=== PATIENT | male | born 1985 | race Two or more races ===

== ENCOUNTER 2016-04-02 18:47 | Inpatient (IN) | payer MEDICAID ==
[2016-04-02 19:49] LABS: % BASOPHILS 0.7 % (0.0-2.0); % LYMPHOCYTES 28.7 % (20.0-50.0); % MONOCYTES 7.7 % (2.0-10.0); % NEUTROPHILS 60.9 % (40.0-80.0); HEMATOCRIT 53.6 % (39.0-49.0); HEMOGLOBIN 18.3 gm/dL (13.2-17.3); MEAN CELL VOLUME 90.3 fl (80-99); MEAN CORPUSCULAR HEMOGLOBIN 30.8 pg (26.0-30.0); MEAN CORPUSCULAR HGB CONC 34.1 pg (28.0-36.0); MEAN PLATELET VOLUME 10.8 fl; NEUTROPHILE ABSOLUTE 4.5 Th/cmm (1.8-8.0); PLATELET COUNT 189 Th/cmm (150-400); RED BLOOD COUNT 5.94 Mil/cmm (4.30-5.70); RED CELL DISTRIBUTION WIDTH 12.4 % (11.5-20.0); WHITE BLOOD COUNT 7.6 Th/cmm (4.8-10.8)
[2016-04-02 20:00] LABS: ALB/GLOB RATIO 1.3 (1.0-1.8); ALKALINE PHOSPHATASE 47 U/L (34-104); ANION GAP 7.2 (7.0-16.0); BILIRUBIN,TOTAL 0.5 mg/dL (0.3-1.0); BUN - UREA NITROGEN 18 mg/dL (7-25); CALCIUM SERUM 9.5 mg/dL (8.6-10.3); CARBON DIOXIDE 31.7 mEq/L (21.0-31.0); CHLORIDE 103 mEq/L (98-107); CREATININE - SERUM 0.6 mg/dL (0.7-1.3); GLUCOSE 97 mg/dL (70-105); POTASSIUM SERUM 3.9 mEq/L (3.5-5.1); SGOT 15 U/L (13-39); SGPT/ALT 31 U/L (7-52); SODIUM SERUM 138 mEq/L (136-145)
--- NOTE | 2016-04-02 20:26 | ED Physician Chart ---
Chief Complaint/HPI - Patient Information Date Seen:: 04/02/16 Time Seen:: 19:00 Chief Complaint:: congestion History of Present Illness:: congestion today without other specific acute changes Allergies:: Allergies Allergy/AdvReac Type Severity Reaction Status Date / Time No Known Allergies Allergy Verified 04/02/16 18:54 Vitals:: Vital Signs - 8 hr 04/02/16 04/02/16 18:55 19:44 Temp 98.4 F 98.5 F HR 80 75 RR 17 20 BP 112/77 108/78 O2 Sat % 94 95 Historian:: EMS, Medical Records Review:: Nurse's Note Reviewed, Transfer documents Reviewed, Patient unable to respond Review of Systems - Review of Systems General/Constitutional: No fever, No chills, No weight loss, No diaphoresis, No edema, No loss of appetite Skin: No skin lesions, No rash, No bruising Pulmonary: No SOB, No cough, No sputum, No wheezing GI: No nausea, No vomiting, No diarrhea, No melena, No hematochezia, No hematemesis Psychiatric: Prior psych history Hematopoietic: No bruising Allergic/Immuno: No urticaria, No angioedema Neurological: No syncope, No focal symptoms Past Medical History - Past Medical History Past Medical History: DM, PUD/GERD, Seizures, Other (paraplegia) Social History: Non Smoker, No Alcohol, No Drug Use, Care Facility Surgical History: PEG/GTube Psychiatricy History: None Medication: Reviewed Family Medical History - Family Member Mother History Unknown: Yes Physical Exam - Physical Examination General/Constitutional: Alert, Non-toxic appearing Head: Atraumatic Eyes: PERRL, EOMI Skin: No rash, No skin lesions, Well hydrated ENMT: Nasal exam nl, Lips, teeth, gums nl (poor dental hygiene), Oropharynx nl Neck: Nontender, No nuchal rigidity, No bruit, No mass, No stridor Respiratory: Nl effort/Exclusion (rales bilat, rhonchi greater over right hilar area) Cardio Vascular: RRR, No murmur, gallop, rubs, NL S1 S2, Carotid/Femoral/Distal pulses equal bilaterally GI: No tenderness/rebounding/guarding, No organomegaly, No hernia, Normal BS's, Nondistended (G tube site clean) : No discharge Other Extremities comments:: extremities with paralytic stigmata, some contractures. excellent skin appearance, no edema, symmetrical, warm to touch. Neuro/Psych: Alert/oriented (pt is alert, nonverbal) Other Neuro/Psych comments:: pt nonverbal paraplegia/partial quadriplegia. responds to name, smiles, seems to be able to focus on faces, turns toward voice. Labs/Radiology/EKG Results - Lab Results Results: Laboratory Tests 04/02/16 04/02/16 04/02/16 19:20 19:20 19:20 WBC 7.6 RBC 5.94 H Hgb 18.3 H Hct 53.6 H MCV 90.3 MCH 30.8 H MCHC Differential 34.1 RDW 12.4 Plt Count 189 MPV 10.8 Neutrophils % 60.9 Lymphocytes % 28.7 Monocytes % 7.7 Eosinophils % 2.0 Basophils % 0.7 Sodium 138 Potassium 3.9 Chloride 103 Carbon Dioxide 31.7 H Anion Gap 7.2 BUN 18 Creatinine 0.6 L Est GFR ( Amer) > 60.0 Est GFR (Non-Af Amer) > 60.0 BUN/Creatinine Ratio 30.0 Glucose 97 Whole Bld Lactic Acid 1.95 Calcium 9.5 Total Bilirubin 0.5 AST 15 ALT 31 Alkaline Phosphatase 47 Total Protein 7.4 Albumin 4.2 Globulin 3.2 Albumin/Globulin Ratio 1.3 - Radiology Results Results: ED read, no prior exam available. diffuse increased bronchial markings, obscured right heart border but no distinct infiltrate or consolidation. - EKG Interpretations EKG Time:: 19:25 (NSR, minimal ST segment elevation diffusely but not malignant in appearance) ED Septic Shock - . Is Septic Shock (SBP<90, OR Lactate>4 mmol\L) present?: No - <6hrs of presentation: Vital Signs: Vital Signs - 8 hr 04/02/16 04/02/16 18:55 19:44 Temp 98.4 F 98.5 F HR 80 75 RR 17 20 BP 112/77 108/78 O2 Sat % 94 95 Reassessment (Disposition) - Reassessment Reassessment Condition:: Unchanged - Patient Disposition Discharge/Transfer:: Acute Care w/in this hosp (discussed with dr sterling who subsequently requests observation for this pt overnight and will arrange additional care plan) ED Discharge Plan - Patient Disposition Admit/Discharge/Transfer: Acute Care w/in this hosp Condition at Disposition: Stable
[2016-04-02] MEDS ORDERED: Magnesium Hydroxide (MOM) 30 mL UDC GT PRN (21:32)
[2016-04-02] MEDS ORDERED: guaiFENesin 200 MG/10 ML UDC PO PRN (21:35)
[2016-04-02] MEDS ORDERED: Maalox 30 mL Cup PO PRN (21:35)
[2016-04-02] MEDS ORDERED: Levofloxacin 500mg/100mL 500 MG/100 ML BAG IV ONE (21:45)
[2016-04-03] MEDS ORDERED: Albuterol Nebulizer 2.5mg/3mL HHN ONE (06:37)
[2016-04-03] MEDS ORDERED: Ipratropium Neb 0.5 mg/2.5 mL UD HHN ONE (06:38)
[2016-04-03] MEDS: Docusate Sodium 100 mg/10 mL UD GT SCH ×2 (08:44→16:31)
[2016-04-03] MEDS: Pantoprazole 40 mg/Packet GT SCH (08:45)
[2016-04-03] MEDS ORDERED: Albuterol Nebulizer 2.5mg/3mL IH SCH (09:00)
[2016-04-03] MEDS: D5-0.45NS 1,000 ML IV SCH ×2 (09:00→22:40)
[2016-04-03] MEDS ORDERED: Ipratropium Neb 0.5 mg/2.5 mL UD IH SCH (09:00)
[2016-04-03] MEDS: Ipratropium Neb 0.5 mg/2.5 mL UD HHN SCH ×3 (10:40→19:46)
[2016-04-03] MEDS: Albuterol Nebulizer 2.5mg/3mL HHN SCH ×3 (10:40→19:46)
--- NOTE | 2016-04-03 11:18 | Diagnostic Imaging Report ---
Portable chest x-ray HISTORY: Shortness of breath There is a poor inspiration. Faint linear density seen in the right perihilar region that may be associated with scarring or subsegmental atelectasis. The heart size is normal. No hilar or mediastinal abnormalities. IMPRESSION: 1. Faint right perihilar linear density. The finding may be associated with scarring or subsegmental atelectasis. Clinical relation needed.
[2016-04-03] MEDS ORDERED: Dextrose 50% 50 mL Abboject IVP PRN (11:31)
[2016-04-03] MEDS: INSULIN ASPART SLIDING SCALE 100 UNITS/ML UNIT SUBQ SCH ×3 (12:34→20:56)
[2016-04-03 17:44] LABS: URINE BILIRUBIN NEGATIVE (NEGATIVE); URINE BLOOD NEGATIVE (NEGATIVE); URINE COLOR YELLOW; URINE GLUCOSE (UA) NEGATIVE (NEGATIVE); URINE KETONE TRACE mg/dL (NEGATIVE); URINE PROTEIN TRACE mg/dL (NEGATIVE)
[2016-04-03 17:45] LABS: URINE BACTERIA FEW /hpf (NONE SEEN); URINE EPITHELIAL CELLS FEW /lpf (FEW); URINE RBC NONE SEEN /hpf (0-5); URINE WBC 0-2 /hpf (0-5)
[2016-04-03 17:46] LABS: URINE AMORPHOUS SEDIMENT MODERATE URATES (NONE SEEN)
[2016-04-03] MEDS: Levofloxacin 500mg/100mL Premix Bag IV SCH (20:54)
[2016-04-04 07:22] LABS: % BASOPHILS 0.3 % (0.0-2.0); % EOSINOPHILS 2.2 % (0.0-5.0); % LYMPHOCYTES 26.8 % (20.0-50.0); % MONOCYTES 7.8 % (2.0-10.0); % NEUTROPHILS 62.9 % (40.0-80.0); HEMATOCRIT 48.8 % (39.0-49.0); HEMOGLOBIN 16.8 gm/dL (13.2-17.3); MEAN CELL VOLUME 90.4 fl (80-99); MEAN CORPUSCULAR HEMOGLOBIN 31.2 pg (26.0-30.0); MEAN CORPUSCULAR HGB CONC 34.5 pg (28.0-36.0); MEAN PLATELET VOLUME 11.1 fl; NEUTROPHILE ABSOLUTE 4.4 Th/cmm (1.8-8.0); PLATELET COUNT 164 Th/cmm (150-400); RED CELL DISTRIBUTION WIDTH 12.6 % (11.5-20.0); WHITE BLOOD COUNT 6.9 Th/cmm (4.8-10.8)
[2016-04-04 07:38] LABS: ANION GAP 10.2 (7.0-16.0); BUN - UREA NITROGEN 15 mg/dL (7-25); CALCIUM SERUM 8.9 mg/dL (8.6-10.3); CARBON DIOXIDE 27.6 mEq/L (21.0-31.0); CHLORIDE 105 mEq/L (98-107); CREATININE - SERUM 0.5 mg/dL (0.7-1.3); GLUCOSE 98 mg/dL (70-105); POTASSIUM SERUM 3.8 mEq/L (3.5-5.1); SODIUM SERUM 139 mEq/L (136-145)
[2016-04-04] MEDS: INSULIN ASPART SLIDING SCALE 100 UNITS/ML UNIT SUBQ SCH ×4 (07:43→21:12)
[2016-04-04 08:13] LABS: TSH 1.22 uIU/ml (0.34-5.60)
[2016-04-04] MEDS: Albuterol Nebulizer 2.5mg/3mL HHN SCH ×5 (08:24→19:10)
[2016-04-04] MEDS: Ipratropium Neb 0.5 mg/2.5 mL UD HHN SCH ×3 (08:25→19:10)
[2016-04-04] MEDS: Docusate Sodium 100 mg/10 mL UD GT SCH ×2 (08:36→16:45)
[2016-04-04] MEDS: Pantoprazole 40 mg/Packet GT SCH (08:36)
--- NOTE | 2016-04-04 09:26 | History & Physical ---
CHIEF COMPLAINT: ____ congestion, dehydrated. HISTORY OF PRESENT ILLNESS: This is a 31-year-old male with history of mental retardation, cerebral palsy, seizure, dysphagia with G-tube, diabetes, was admitted from nursing facility secondary to above complaints. The patient is awake ____ unable to provide a meaningful history on review of system. PAST MEDICAL HISTORY: As mentioned in history of present illness. PAST SURGICAL HISTORY: Status post G-tube. ALLERGIES: No known drug allergies. MEDICATIONS: Tylenol, insulin sliding scale, Keppra, magnesium, pantoprazole. FAMILY HISTORY: Noncontributory. SOCIAL HISTORY: The patient lives in [place] [facility]. The patient requiring 24-hour total care. REVIEW OF SYSTEMS: This is limited secondary to the patient's current mental state. We will try to obtain more detailed review of systems at a later date by talking to family members. ____ number [phone]. We will also try to get information from the mother who also ____ [phone] as well as from nursing staff at [facility], number [phone] Allen who follows the patient. PHYSICAL EXAMINATION: VITAL SINGS: Blood pressure 110/73, respirations 17, pulse 118, and temperature 98.8. GENERAL: Young male appears chronically ill. NECK: Supple. LUNGS: Equal breath sounds, few rhonchi. HEART: Sinus tachycardia without appreciable murmurs. ABDOMEN: Soft. Nontender. Positive G-tube. EXTREMITIES: Positive contractures, atrophy. NEUROLOGIC: Limited. LABORATORY DATA: WBC 7.6, hemoglobin 18, platelets ____. Sodium 130, potassium ____, BUN 18, creatinine 0.6, blood sugar 140. Chest x-ray is pending. ASSESSMENT: Supraventricular tachycardia, acute asthma exacerbation, acute bronchitis, diabetes, gastroesophageal reflux disease, dysphagia with G-tube, mental retardation, cerebral palsy, seizure, erythrocytosis. PLAN: We will continue the patient on IV hydration, ____ regular insulin regimen. Continue anticoagulant medications. We will also ____. We will continue to monitor the patient closely. JOB# [id number]
--- NOTE | 2016-04-04 11:16 | Diagnostic Imaging Report ---
Portable chest x-ray HISTORY: Pneumonia Compared with prior exam of 04/02/2016, there is a persistent linear density within the right perihilar region consistent with scarring or subsegmental atelectasis. No other changes. IMPRESSION: 1. Persistent linear density within the right perihilar region. Findings may be associated with scarring or subsegmental atelectasis.
--- NOTE | 2016-04-04 15:27 | Internal Medicine Prog Note ---
Internal Medicine Subjective - Subjective Patient seen and examined:: with staff, chart reviewed Patient is:: asleep, non-verbal, non-interactive Patient Complaints of:: congestion Per staff patient is:: no adverse event, no episodes of fall, confused Internal Medicine Objective - Results Result Diagrams: 04/04/16 06:48 04/04/16 06:48 Recent Labs: Laboratory Last Values WBC 6.9 Th/cmm (4.8-10.8) 04/04/16 06:48 RBC 5.40 Mil/cmm (4.30-5.70) 04/04/16 06:48 Hgb 16.8 gm/dL (13.2-17.3) 04/04/16 06:48 Hct 48.8 % (39.0-49.0) 04/04/16 06:48 MCV 90.4 fl (80-99) 04/04/16 06:48 MCH 31.2 pg (26.0-30.0) H 04/04/16 06:48 MCHC Differential 34.5 pg (28.0-36.0) 04/04/16 06:48 RDW 12.6 % (11.5-20.0) 04/04/16 06:48 Plt Count 164 Th/cmm (150-400) 04/04/16 06:48 MPV 11.1 fl 04/04/16 06:48 Neutrophils % 62.9 % (40.0-80.0) 04/04/16 06:48 Lymphocytes % 26.8 % (20.0-50.0) 04/04/16 06:48 Monocytes % 7.8 % (2.0-10.0) 04/04/16 06:48 Eosinophils % 2.2 % (0.0-5.0) 04/04/16 06:48 Basophils % 0.3 % (0.0-2.0) 04/04/16 06:48 Sodium 139 mEq/L (136-145) 04/04/16 06:48 Potassium 3.8 mEq/L (3.5-5.1) 04/04/16 06:48 Chloride 105 mEq/L (98-107) 04/04/16 06:48 Carbon Dioxide 27.6 mEq/L (21.0-31.0) 04/04/16 06:48 Anion Gap 10.2 (7.0-16.0) 04/04/16 06:48 BUN 15 mg/dL (7-25) 04/04/16 06:48 Creatinine 0.5 mg/dL (0.7-1.3) L 04/04/16 06:48 Est GFR ( Amer) > 60.0 ml/min (>90) 04/04/16 06:48 Est GFR (Non-Af Amer) > 60.0 ml/min 04/04/16 06:48 BUN/Creatinine Ratio 30.0 04/04/16 06:48 Glucose 98 mg/dL (70-105) 04/04/16 06:48 POC Glucose 98 MG/DL (70 - 105) 04/04/16 11:12 Whole Bld Lactic Acid 1.95 mmol/L (0.60-2.00) 04/02/16 19:20 Calcium 8.9 mg/dL (8.6-10.3) 04/04/16 06:48 Total Bilirubin 0.5 mg/dL (0.3-1.0) 04/02/16 19:20 AST 15 U/L (13-39) 04/02/16 19:20 ALT 31 U/L (7-52) 04/02/16 19:20 Alkaline Phosphatase 47 U/L (34-104) 04/02/16 19:20 Ammonia 47 umol/L (16-53) 04/04/16 06:48 Total Protein 7.4 gm/dL (6.0-8.3) 04/02/16 19:20 Albumin 4.2 gm/dL (4.2-5.5) 04/02/16 19:20 Globulin 3.2 gm/dL 04/02/16 19:20 Albumin/Globulin Ratio 1.3 (1.0-1.8) 04/02/16 19:20 TSH 1.22 uIU/ml (0.34-5.60) 04/04/16 06:48 Urine Source CATH 04/03/16 15:20 Urine Color YELLOW 04/03/16 15:20 Urine Clarity SLIGHT HAZY (CLEAR) 04/03/16 15:20 Urine pH 7.0 04/03/16 15:20 Ur Specific [place] 1.020 (1.005-1.030) 04/03/16 15:20 Urine Protein TRACE mg/dL (NEGATIVE) 04/03/16 15:20 Urine Glucose (UA) NEGATIVE mg/dL (NEGATIVE) 04/03/16 15:20 Urine Ketones TRACE mg/dL (NEGATIVE) 04/03/16 15:20 Urine Blood NEGATIVE (NEGATIVE) 04/03/16 15:20 Urine Nitrate NEGATIVE (NEGATIVE) 04/03/16 15:20 Urine Bilirubin NEGATIVE (NEGATIVE) 04/03/16 15:20 Urine Urobilinogen 1.0 E.U./dL (0.2 - 1.0) 04/03/16 15:20 Ur Leukocyte Esterase NEGATIVE (NEGATIVE) 04/03/16 15:20 Urine RBC NONE SEEN /hpf (0-5) 04/03/16 15:20 Urine WBC 0-2 /hpf (0-5) 04/03/16 15:20 Ur Epithelial Cells FEW /lpf (FEW) 04/03/16 15:20 Amorphous Sediment MODERATE URATES (NONE SEEN) 04/03/16 15:20 Urine Bacteria FEW /hpf (NONE SEEN) 04/03/16 15:20 Urine Mucus FEW /lpf (FEW) 04/03/16 15:20 - Physical Exam Vitals and I&O: Vital Signs Temp 97.5 F 04/04/16 12:00 Pulse 79 04/04/16 12:00 Resp 18 04/04/16 12:00 BP 101/69 04/04/16 12:00 Pulse Ox 93 04/04/16 12:00 Intake & Output 04/03/16 04/04/16 04/04/16 18:59 06:59 18:59 Intake Total 950 1400 Balance 950 1400 Intake: Intake, IV Amount 1000 D5-0.45NS 1,000 ml @ 80 1000 mls/hr IV .[id number] [facility] Rx #:[id number] Tube Feeding 750 200 Other 200 200 Other: # Voids 3 2 # Bowel Movements 0 1 Active Medications: Current Medications Acetaminophen (Tylenol) 650 mg PO Q4HR PRN PRN Reason: Pain or Fever >101 Stop: 06/01/16 21:34 Al Hydrox/Mg Hydrox/Simethicone (Maalox) 30 ml PO Q6HR PRN PRN Reason: GI DISTRESS Stop: 06/01/16 21:34 Albuterol Sulfate (Albuterol 2.5mg/3ml Neb Ud) 2.5 mg HHN QIDRT [facility] Stop: 06/02/16 10:59 Last Admin: 04/04/16 14:38 Dose: 2.5 mg Dextrose (D50w) 50 ml IVP PRN PRN PRN Reason: Blood Glucose less than 70 Stop: 06/02/16 11:30 Docusate Sodium (Colace) 150 mg GT BID [facility] Stop: 06/02/16 08:59 Last Admin: 04/04/16 08:36 Dose: 150 mg Guaifenesin (Robitussin) 200 mg PO Q4HR PRN PRN Reason: Cough or Congestion Stop: 06/01/16 21:34 Dextrose/Sodium Chloride (D5-0.45ns) 1,000 mls @ 80 mls/hr IV .[id number] [facility] Stop: 06/01/16 21:44 Last Admin: 04/03/16 22:40 Dose: 80 mls/hr Levofloxacin (Levaquin Pb) 500 mg in 100 mls @ 100 mls/hr IV Q24HR [facility] Stop: 06/02/16 20:59 Last Admin: 04/03/16 20:54 Dose: 100 mls/hr Insulin Aspart (Novolog Insulin Sliding Scale) 0 units SUBQ ACHS SHIRA PRN Reason: Protocol Stop: 06/02/16 11:29 Last Admin: 04/04/16 07:43 Dose: Not Given Ipratropium [place] (Atrovent Neb 0.5mg/2.5ml) 0.5 mg N QIDRT [facility] Stop: 06/02/16 10:59 Last Admin: 04/04/16 14:38 Dose: 0.5 mg Levetiracetam (Keppra) 500 mg PO BID [facility] Stop: 06/02/16 08:59 Last Admin: 04/04/16 08:36 Dose: 500 mg Lorazepam (Ativan) 1 mg IV Q4HR PRN; Protocol PRN Reason: Seizure Stop: 06/01/16 21:34 Magnesium Hydroxide (Milk Of Magnesia) 30 ml GT DAILY PRN PRN Reason: Constipation Stop: 06/01/16 21:31 Nitroglycerin (Nitrostat) 0.4 mg SL Q5MIN PRN PRN Reason: CHEST PAIN X3 Stop: 06/01/16 21:31 Ondansetron HCl (Zofran) 4 mg IV Q8H PRN PRN Reason: Nausea / Vomiting Stop: 06/01/16 21:34 Pantoprazole Sodium (Protonix) 40 mg GT DAILY SHIRA Stop: 06/02/16 08:59 Last Admin: 04/04/16 08:36 Dose: 40 mg Zolpidem Tartrate (Ambien) 10 mg PO HS PRN PRN Reason: Insomnia Stop: 06/01/16 21:34 General: demented HEENT: NC/AT Neck: Supple, No JVD Lungs: congested, rales Cardiovascular: RRR, Normal S1, Normal S2 Abdomen: soft non-tender, globular, +GT, positive bowel sound Extremities: excoriation, contracture Neurological: no change Internal Medicine Assmt/Plan - Assessment Assessment: svt acute asthma exac acute bronchitis gerd mr cp sz - Plan Plan: cont on iv abx cxr noted, questonable lesion will order ct chest dw rn and cm see orders Nutritional Asmnt/Malnutr-PDOC - Dietary Evaluation Malnutrition Findings (Please click <Entered> for more info): Nutritional Asmnt/Malnutrition Start: 04/03/16 18: 00 Text: Status: Complete Freq: Document 04/03/16 18:00 GSUN (Rec: 04/03/16 18:21 GSUN [email or web address]) Nutritional Asmnt/Malnutrition Patient General Information Nutritional Screening High Risk Screening Diagnosis Acute bronchitis. ER: congestion Pertinent Medical Hx/Surgical Hx Per ER: DM, GERD, seizures, paraplegia, g-tube Subjective Information 31yo M, non-verbal. Obtained new weight during visit. BMI 22. Spoke to RN, pt tolerating tube feeding well without residuals. Current Diet Order/ Nutrition Support Nutren 2.0 bolus QID Pertinent Medications D50w, D5, colace, novolog sliding scale, MOM, zofran, protonix Pertinent Labs Reviewed. Elevated glucose POC glucose 140H, 239H Nutritional Hx/Data Height 1.75 m Height (Calculated Centimeters) 175.3 Current Weight (lbs) 67.676 kg Weight (Calculated Kilograms) 67.7 Weight (Calculated Grams) 74001.0 [place] Body Weight 160 Weight Status Approriate GI Symptoms Difficult in: Chewing Swallowing Food Allergies No Cultural/Ethnic/Moravian Belief Unknown. Usual diet at home Nutren 2.0 bolus QID Skin Integrity/Comment: WNL. Estimated Nutritional Goals BEE in Kcals: Using Current wt Calories/Kcals/Kg 25-30kcal/kg Kcals Calculated 1693-2031kcal Protein: Using Current wt Protein g/k.8g/kg Protein Calculated 54g Fluid: ml 1693-2031ml (1ml/kcal) Nutritional Problem 1. Problem Problem Altered nutrition related laboratory values related to Etiology DM aeb Signs/Symptoms: elevated glucose, POC glucose 140H and 239H Intervention/Recommendation Comments 1. Recommend Nutren Pulmonary at 55ml/hr x 24hrs, providing 1980kcal, 90g protein. This regimen provides less carbohydrate than Diabetisource to better control DM and also provides a closer consistency to Nutren 2.0 (pt's current order). 2. If pt to be kept on Nutren 2.0, recommend Nutren 2.0 at 40ml/hr, providing 1920kcal, 81g protein. Continuous feeding to promote closed bag ready to hang system in the hospital. Expected Outcomes/Goals Expected Outcomes/Goals 1. Pt to meet 100% estimated nutritional needs on tube feeding with tolerance. Physician Parameters for PEM Serum Albumin (g/dl) 3.5 - 5.0 (Normal)
--- NOTE | 2016-04-04 21:55 | Admit Criteria Form ---
Admit Criteria Forms - Admit Criteria Diagnosis: ASTHMA Clinical Indications for Admission to Inpatient Care (Place 'X' for any and all applicable criteria): Admission is indicated for ANY ONE of the following (1)(2)(3)(4)(5): [ ]I. Absent or markedly diminished breath sounds (silent chest) [ ]II. Oxygen saturation < 92% [ ]III. PaCO2 = / > 42 mm Hg (5.6 kPa) [ ]IV. Peak expiratory flow rate < 40% of predicted or personal best after treatment. [ ]V. Peak expiratory flow rate < 33% of predicted or personal before after treatment [ ]. Change in mental status [ ]VII. Ventilatory support required [ ]VIII. PaO2 < 60 mm Hg (8.0 kPa) [ ]IX. Cyanosis [X]X. Cardiac dysrhythmia (e.g., bradycardia) [ ]XI. Hemodynamic instability [ ]XII. Radiographic evidence of complication requiring inpatient treatment (e.g., pneumonia, pneumothorax) [ ]XIII. Inpatient admission required rather than observation care (also use Asthma: Observation Care guideline as appropriate) because of ANY ONE of the following: [ ]a) Respiratory finding that is severe or persistent (eg, dyspnea, tachypnea, accessory muscle use) [ ]b) Airflow measurements less than 60% of predicted or personal best that persist (e.g., over 24 hours) or worsen despite treatments [ ]c) Supplemental oxygen or respiratory treatments for over 24 hours that are performable only in acute inpatient setting [ ]d) Other condition, treatment or monitoring requiring inpatient admission. Extended stay beyond goal length of stay may be needed for (26)(27)(28): [ ]a) Severe respiratory failure (23) (29) (30) [ ]b) Secondary causes and complications (25) [ ]c) Status asthmaticus [ ]d) Chronic obstructive asthma [ ]e) Older patients (29) [ ]f) Slow resolution [ ]g) Clinically significant exacerbation of comorbidities (eg, claudia. heart failure, atrial fibrillation) The original [employer] content created by [employer] has been revised. The portions of the content which have been revised are identified through the use of italic text or in bold, and [facility] has neither reviewed nor approved the modified material. All other unmodified content is copyright [facility] Please see references footnoted in the original [facility] edition 2016 Admit Criteria Met?: Yes
[2016-04-04] MEDS: Levofloxacin 500mg/100mL Premix Bag IV SCH (22:13)
[2016-04-05] MEDS: INSULIN ASPART SLIDING SCALE 100 UNITS/ML UNIT SUBQ SCH ×2 (06:42→11:30)
[2016-04-05] MEDS: Albuterol Nebulizer 2.5mg/3mL HHN SCH ×2 (07:28→11:09)
[2016-04-05] MEDS: Ipratropium Neb 0.5 mg/2.5 mL UD HHN SCH ×2 (07:29→11:09)
[2016-04-05] MEDS: Pantoprazole 40 mg/Packet GT SCH (08:59)
[2016-04-05] MEDS: Docusate Sodium 100 mg/10 mL UD GT SCH ×2 (08:59→16:57)
--- NOTE | 2016-04-05 10:05 | Diagnostic Imaging Report ---
CT Chest without IV contrast HISTORY: Mass, bronchitis COMPARISON: Chest x-ray performed on 04/04/2016. Technique: Axial images were obtained from the base of the neck to the upper abdomen without IV contrast. Reconstructions were made. Total DLP 3:15 CTD I 8.8 Findings: Evaluate evaluation of the mediastinum is limited due to lack of IV contrast. The exam is also limited due to motion. No evidence of mediastinal lymphadenopathy. Small calcification versus postsurgical changes of right hilar region are noted. Heart size is normal. No evidence of any aortic aneurysm. No pericardial effusion. Note that the lung apices are incompletely visualized on this exam. The lung montano demonstrate atelectatic hypotensor changes greatest in the lung bases. No focal consolidation, pleural effusions or evidence of a discrete mass. The upper abdomen demonstrates a percutaneous gastric feeding tube. Nonspecific small calcification is seen inferior to the right lobe of the liver. Spinal scoliosis is noted. IMPRESSION: Limited exam due to motion and incomplete visualization of the lung apices. Hypoventilatory and atelectatic changes of the lungs are seen with no focal consolidation or evidence of discrete mass lesion. Small calcified right hilar granulomas versus postsurgical changes of right hilar region. Please correlate with patient's clinical history and old exams. Suboptimal lung volumes. Percutaneous gastric feeding tube noted.
--- NOTE | 2016-04-05 14:18 | Internal Medicine Prog Note ---
Internal Medicine Subjective - Subjective Service Date: 04/05/16 Patient seen and examined:: with staff Patient is:: awake, non-verbal Patient Complaints of:: congestion Internal Medicine Objective - Results Result Diagrams: 04/04/16 06:48 04/04/16 06:48 Recent Labs: Laboratory Last Values WBC 6.9 Th/cmm (4.8-10.8) 04/04/16 06:48 RBC 5.40 Mil/cmm (4.30-5.70) 04/04/16 06:48 Hgb 16.8 gm/dL (13.2-17.3) 04/04/16 06:48 Hct 48.8 % (39.0-49.0) 04/04/16 06:48 MCV 90.4 fl (80-99) 04/04/16 06:48 MCH 31.2 pg (26.0-30.0) H 04/04/16 06:48 MCHC Differential 34.5 pg (28.0-36.0) 04/04/16 06:48 RDW 12.6 % (11.5-20.0) 04/04/16 06:48 Plt Count 164 Th/cmm (150-400) 04/04/16 06:48 MPV 11.1 fl 04/04/16 06:48 Neutrophils % 62.9 % (40.0-80.0) 04/04/16 06:48 Lymphocytes % 26.8 % (20.0-50.0) 04/04/16 06:48 Monocytes % 7.8 % (2.0-10.0) 04/04/16 06:48 Eosinophils % 2.2 % (0.0-5.0) 04/04/16 06:48 Basophils % 0.3 % (0.0-2.0) 04/04/16 06:48 Sodium 139 mEq/L (136-145) 04/04/16 06:48 Potassium 3.8 mEq/L (3.5-5.1) 04/04/16 06:48 Chloride 105 mEq/L (98-107) 04/04/16 06:48 Carbon Dioxide 27.6 mEq/L (21.0-31.0) 04/04/16 06:48 Anion Gap 10.2 (7.0-16.0) 04/04/16 06:48 BUN 15 mg/dL (7-25) 04/04/16 06:48 Creatinine 0.5 mg/dL (0.7-1.3) L 04/04/16 06:48 Est GFR ( Amer) > 60.0 ml/min (>90) 04/04/16 06:48 Est GFR (Non-Af Amer) > 60.0 ml/min 04/04/16 06:48 BUN/Creatinine Ratio 30.0 04/04/16 06:48 Glucose 98 mg/dL (70-105) 04/04/16 06:48 POC Glucose 98 MG/DL (70 - 105) 04/05/16 11:29 Whole Bld Lactic Acid 1.95 mmol/L (0.60-2.00) 04/02/16 19:20 Calcium 8.9 mg/dL (8.6-10.3) 04/04/16 06:48 Total Bilirubin 0.5 mg/dL (0.3-1.0) 04/02/16 19:20 AST 15 U/L (13-39) 04/02/16 19:20 ALT 31 U/L (7-52) 04/02/16 19:20 Alkaline Phosphatase 47 U/L (34-104) 04/02/16 19:20 Ammonia 47 umol/L (16-53) 04/04/16 06:48 Total Protein 7.4 gm/dL (6.0-8.3) 04/02/16 19:20 Albumin 4.2 gm/dL (4.2-5.5) 04/02/16 19:20 Globulin 3.2 gm/dL 04/02/16 19:20 Albumin/Globulin Ratio 1.3 (1.0-1.8) 04/02/16 19:20 TSH 1.22 uIU/ml (0.34-5.60) 04/04/16 06:48 Urine Source CATH 04/03/16 15:20 Urine Color YELLOW 04/03/16 15:20 Urine Clarity SLIGHT HAZY (CLEAR) 04/03/16 15:20 Urine pH 7.0 04/03/16 15:20 Ur Specific [place] 1.020 (1.005-1.030) 04/03/16 15:20 Urine Protein TRACE mg/dL (NEGATIVE) 04/03/16 15:20 Urine Glucose (UA) NEGATIVE mg/dL (NEGATIVE) 04/03/16 15:20 Urine Ketones TRACE mg/dL (NEGATIVE) 04/03/16 15:20 Urine Blood NEGATIVE (NEGATIVE) 04/03/16 15:20 Urine Nitrate NEGATIVE (NEGATIVE) 04/03/16 15:20 Urine Bilirubin NEGATIVE (NEGATIVE) 04/03/16 15:20 Urine Urobilinogen 1.0 E.U./dL (0.2 - 1.0) 04/03/16 15:20 Ur Leukocyte Esterase NEGATIVE (NEGATIVE) 04/03/16 15:20 Urine RBC NONE SEEN /hpf (0-5) 04/03/16 15:20 Urine WBC 0-2 /hpf (0-5) 04/03/16 15:20 Ur Epithelial Cells FEW /lpf (FEW) 04/03/16 15:20 Amorphous Sediment MODERATE URATES (NONE SEEN) 04/03/16 15:20 Urine Bacteria FEW /hpf (NONE SEEN) 04/03/16 15:20 Urine Mucus FEW /lpf (FEW) 04/03/16 15:20 - Physical Exam Vitals and I&O: Vital Signs Temp 98.9 F 04/05/16 11:56 Pulse 88 04/05/16 11:56 Resp 18 04/05/16 11:56 BP 115/79 04/05/16 11:56 Pulse Ox 97 04/05/16 11:56 Intake & Output 04/04/16 04/05/16 04/05/16 18:59 06:59 18:59 Other: # Voids 2 # Bowel Movements 1 Active Medications: Current Medications Acetaminophen (Tylenol) 650 mg PO Q4HR PRN PRN Reason: Pain or Fever >101 Stop: 06/01/16 21:34 Al Hydrox/Mg Hydrox/Simethicone (Maalox) 30 ml PO Q6HR PRN PRN Reason: GI DISTRESS Stop: 06/01/16 21:34 Albuterol Sulfate (Albuterol 2.5mg/3ml Neb Ud) 2.5 mg HHN QIDRT SHIRA Stop: 06/02/16 10:59 Last Admin: 04/05/16 11:09 Dose: 2.5 mg Dextrose (D50w) 50 ml IVP PRN PRN PRN Reason: Blood Glucose less than 70 Stop: 06/02/16 11:30 Docusate Sodium (Colace) 150 mg GT BID [facility] Stop: 06/02/16 08:59 Last Admin: 04/05/16 08:59 Dose: 150 mg Guaifenesin (Robitussin) 200 mg PO Q4HR PRN PRN Reason: Cough or Congestion Stop: 06/01/16 21:34 Dextrose/Sodium Chloride (D5-0.45ns) 1,000 mls @ 80 mls/hr IV .[id number] [facility] Stop: 06/01/16 21:44 Last Admin: 04/03/16 22:40 Dose: 80 mls/hr Levofloxacin (Levaquin Pb) 500 mg in 100 mls @ 100 mls/hr IV Q24HR [facility] Stop: 06/02/16 20:59 Last Admin: 04/04/16 22:13 Dose: 100 mls/hr Insulin Aspart (Novolog Insulin Sliding Scale) 0 units SUBQ ACHS SHIRA PRN Reason: Protocol Stop: 06/02/16 11:29 Last Admin: 04/05/16 11:30 Dose: Not Given Ipratropium [place] (Atrovent Neb 0.5mg/2.5ml) 0.5 mg HHN QIDRT [facility] Stop: 06/02/16 10:59 Last Admin: 04/05/16 11:09 Dose: 0.5 mg Levetiracetam (Keppra) 500 mg PO BID [facility] Stop: 06/02/16 08:59 Last Admin: 04/05/16 08:59 Dose: 500 mg Lorazepam (Ativan) 1 mg IV Q4HR PRN; Protocol PRN Reason: Seizure Stop: 06/01/16 21:34 Magnesium Hydroxide (Milk Of Magnesia) 30 ml GT DAILY PRN PRN Reason: Constipation Stop: 06/01/16 21:31 Nitroglycerin (Nitrostat) 0.4 mg SL Q5MIN PRN PRN Reason: CHEST PAIN X3 Stop: 06/01/16 21:31 Ondansetron HCl (Zofran) 4 mg IV Q8H PRN PRN Reason: Nausea / Vomiting Stop: 06/01/16 21:34 Pantoprazole Sodium (Protonix) 40 mg GT DAILY [facility] Stop: 06/02/16 08:59 Last Admin: 04/05/16 08:59 Dose: 40 mg Zolpidem Tartrate (Ambien) 10 mg PO HS PRN PRN Reason: Insomnia Stop: 06/01/16 21:34 General: weak HEENT: PERRLA Neck: Supple Lungs: wheezing Cardiovascular: RRR, Normal S1, Normal S2, without murmur Abdomen: soft non-tender, non-distended, +GT, positive bowel sound Internal Medicine Assmt/Plan - Assessment Assessment: svt acute asthma exac acute bronchitis gerd mr cp sz - Plan Plan: bronchodilators supplemental oxygen as needed ivabx f/u labs Nutritional Asmnt/Malnutr-PDOC - Dietary Evaluation Malnutrition Findings (Please click <Entered> for more info): Nutritional Asmnt/Malnutrition Start: 04/03/16 18: 00 Text: Status: Complete Freq: Document 04/03/16 18:00 GSUN (Rec: 04/03/16 18:21 GSUN [email or web address]) Nutritional Asmnt/Malnutrition Patient General Information Nutritional Screening High Risk Screening Diagnosis Acute bronchitis. ER: congestion Pertinent Medical Hx/Surgical Hx Per ER: DM, GERD, seizures, paraplegia, g-tube Subjective Information 31yo M, non-verbal. Obtained new weight during visit. BMI 22. Spoke to RN, pt tolerating tube feeding well without residuals. Current Diet Order/ Nutrition Support Nutren 2.0 bolus QID Pertinent Medications D50w, D5, colace, novolog sliding scale, MOM, zofran, protonix Pertinent Labs Reviewed. Elevated glucose POC glucose 140H, 239H Nutritional Hx/Data Height 5 ft 9 in Height (Calculated Centimeters) 175.3 Current Weight (lbs) 149 lb 3.2 oz Weight (Calculated Kilograms) 67.7 Weight (Calculated Grams) 97347.0 [place] Body Weight 160 Weight Status Approriate GI Symptoms Difficult in: Chewing Swallowing Food Allergies No Cultural/Ethnic/Yazidi Belief Unknown. Usual diet at home Nutren 2.0 bolus QID Skin Integrity/Comment: WNL. Estimated Nutritional Goals BEE in Kcals: Using Current wt Calories/Kcals/Kg 25-30kcal/kg Kcals Calculated 1693-2031kcal Protein: Using Current wt Protein g/k.8g/kg Protein Calculated 54g Fluid: ml 1693-2031ml (1ml/kcal) Nutritional Problem 1. Problem Problem Altered nutrition related laboratory values related to Etiology DM aeb Signs/Symptoms: elevated glucose, POC glucose 140H and 239H Intervention/Recommendation Comments 1. Recommend Nutren Pulmonary at 55ml/hr x 24hrs, providing 1980kcal, 90g protein. This regimen provides less carbohydrate than Diabetisource to better control DM and also provides a closer consistency to Nutren 2.0 (pt's current order). 2. If pt to be kept on Nutren 2.0, recommend Nutren 2.0 at 40ml/hr, providing 1920kcal, 81g protein. Continuous feeding to promote closed bag ready to hang system in the hospital. Expected Outcomes/Goals Expected Outcomes/Goals 1. Pt to meet 100% estimated nutritional needs on tube feeding with tolerance. Physician Parameters for PEM Serum Albumin (g/dl) 3.5 - 5.0 (Normal)
[2016-04-06 06:08] LABS: FOLIC ACID 18.4 ng/mL (>3.0)
--- NOTE | 2016-05-21 11:46 | Discharge Summary ---
FINAL DIAGNOSES: Supraventricular tachycardia, acute asthma exacerbation, acute bronchitis, diabetes, and gastroesophageal reflux disease, dysphagia with G-tube, mental retardation, cerebral palsy, seizure, and erythrocytosis. HISTORY OF PRESENT ILLNESS: The patient is a 31-year-old male with a history of mental retardation, cerebral palsy, seizure, dysphagia with G-tube, diabetes, who was admitted from nursing facilities secondary to above complaints. PHYSICAL EXAMINATION: GENERAL: The patient is well developed, well nourished, in no acute distress. HEENT: Head is normocephalic and atraumatic. NECK: Supple. No mass. LUNGS: Clear bilaterally. HEART: Regular rate and rhythm. ABDOMEN: Soft and nontender. HOSPITAL COURSE: During the hospital stay, the patient was admitted to the telemetry unit. The patient was kept on IV fluids for hydration and also anticoagulants as well. The patient had an x-ray of the chest done and the impression is persistent linear density within the right perihilar region. Findings may be associated with scarring or sub-segmental atelectasis. A CT of the chest was done as well and the impression is limited exam due to motion of ____ of the lung. ____ hilar granulomas versus postsurgical changes of the hilar region. Since the patient's heart was within sinus rhythm, the patient was stable for discharge. CONDITION UPON DISCHARGE: Fair. DISPOSITION: [facility]. The patient is to continue Levaquin 500 mg via the G-tube x 7 days. JOB# [id number]
== END 2016-04-05 18:30 | DRG 141 ==
LOC: ER 18:47 → MSI 20:20 → OBSVTOIN 04-03 13:24
PROVIDERS: ADMIT Internal Medicine; ATTEND Internal Medicine
DX: J45.901 Unspecified asthma with (acute) exacerbation (principal); G82.20 Paraplegia, unspecified; R56.9 Unspecified convulsions; I47.1 Supraventricular tachycardia; D75.1 Secondary polycythemia; E86.0 Dehydration; R13.10 Dysphagia, unspecified; J20.9 Acute bronchitis, unspecified; E11.9 Type 2 diabetes mellitus without complications; K21.9 Gastro-esophageal reflux disease without esophagitis; F79 Unspecified intellectual disabilities; G80.9 Cerebral palsy, unspecified; Z93.1 Gastrostomy status; Z79.4 Long term (current) use of insulin
CPT/HCPCS: 36415-UA; 71010-TC; 71250-TC; 80048-TC; 80053-TC; 81001-TC; 82140-TC; 82607-90; 82746-90; 82948-90; 83605; 84443-TC; 85025-TC; 90779; 93005; 94640; 94760; G0378; J1815; J1956; J7030; J7613; Z7610

== ENCOUNTER 2017-05-30 12:13 | Inpatient (IN) | payer MEDICAID ==
[2017-05-30] MEDS ORDERED: Sodium Chloride 0.9% 1,000 ML IV ONE (12:40)
--- NOTE | 2017-05-30 12:44 | ED Physician Chart ---
ED Chief Complaint/HPI - Patient Information Date Seen:: 05/30/17 Time Seen:: 12:20 Chief Complaint:: G-Tube Dysfunction History of Present Illness:: onset x 2 days of G-Tube Dysfunction; no report of trauma, H/as, S/T, neck pain , C/P, SOB, Abd. Pain, A/N/V/D/c, fever, chills, or urinary s/s Allergies:: Allergies Allergy/AdvReac Type Severity Reaction Status Date / Time No Known Allergies Allergy Verified 04/02/16 18:54 Vitals:: Vital Signs - 8 hr 05/30/17 12:21 Temp 98.3 F HR 85 RR 16 BP 113/76 O2 Sat % 96 Historian:: Patient, EMS Review:: Nurse's Note Reviewed, Old Chart Reviewed, EMS run form Reviewed ED Review of Systems - Review of Systems General/Constitutional: No fever, No chills, No weight loss, No weakness, No diaphoresis, No edema, No loss of appetite Skin: No skin lesions, No rash, No bruising Head: No headache, No light-headedness Eyes: No loss of vision, No pain, No diplopia ENT: No earache, No nasal drainage, No sore throat, No tinnitus Neck: No neck pain, No swelling, No thyromegaly, No stiffness, No mass noted Cardio Vascular: No chest pain, No palpitations, No PND, No orthopnea, No edema Pulmonary: No SOB, No cough, No sputum, No wheezing GI: Nausea, Vomiting, Diarrhea, No diarrhea, No pain, No melena, No hematochezia , No constipation, No hematemesis G/U: No dysuria, No frequency, No hematuria, No nacturia Musculoskeletal: No bone or joint pain, No back pain, No muscle pain Endocrine: No polyuria, No polydipsia Psychiatric: No prior psych history, No depression, No anxiety, No suicidal ideation, No homicidal ideation, No auditory hallucination, No visual hallucination Hematopoietic: No bruising, No lymphadenopathy Allergic/Immuno: No urticaria, No angioedema Neurological: No syncope, Focal symptoms, Weakness, No paresthesia, No headache , No seizure, No dizziness, Confusion, No vertigo ED Past Medical History - Past Medical History Obtainable: Yes Past Medical History: HTN, DM, CVA/TIA, Dyslipidemia, Dementia, Other (CP) Family History: Diabetes Melitus, HTN Social History: Non Smoker, No Alcohol, No Drug Use, Single, Care Facility Surgical History: PEG/GTube Psychiatricy History: Dementia Medication: Reviewed Family Medical History - Family Member Mother History Unknown: Yes ED Physical Exam - Physical Examination General/Constitutional: Awake, Well-developed, well-nourished, Alert, No distress, GCS 15, Non-toxic appearing, Ambulatory Head: Atraumatic Eyes: Lids, conjuctiva normal, PERRL, EOMI Skin: Nl inspection, No rash, No skin lesions, No ecchymosis, Well hydrated, No lymphadenopathy ENMT: External ears, nose nl, TM canals nl, Nasal exam nl, Lips, teeth, gums nl , Oropharynx nl, Tonsils nl Neck: Nontender, Full ROM w/o pain, No JVD, No nuchal rigidity, No bruit, No mass, No stridor Respiratory: Nl effort/Exclusion, Clear to Auscultation, No Wheeze/Rhonchi/Rales Cardio Vascular: RRR, No murmur, gallop, rubs, NL S1 S2, Carotid/Femoral/Distal pulses equal bilaterally GI: No tenderness/rebounding/guarding, No organomegaly, No hernia, Normal BS's, Nondistended, No mass/bruits, No McBurney tenderness Other GI comments:: + G-Tube Dysfunction : No CVA tenderness Extremities: No tenderness or effusion, Full ROM, normal strength in all extremities, No edema, Normal digits & nails Neuro/Psych: Alert/oriented, DTR's symmetric, Normal sensory exam, Normal motor strength, Judgement/insight normal, Mood normal, Normal gait, No focal deficits Misc: Normal back, No paraspinal tenderness ED Labs/Radiology/EKG Results - Lab Results Comments:: unremarkable ED Septic Shock - . Is Septic Shock (SBP<90, OR Lactate>4 mmol\L) present?: No - <6hrs of presentation: Vital Signs: Vital Signs - 8 hr 05/30/17 12:21 Temp 98.3 F HR 85 RR 16 BP 113/76 O2 Sat % 96 ED Reassessment (Disposition) - Reassessment Reassessment Condition:: Improved - Diagnosis Diagnosis:: Dx: G-Tube Dysfunction - Aftercare/Follow up Instructions Aftercare/Follow-Up Instructions:: Counseled pt regarding lab results/diagnosis & need follow up, Counseled pt & family regarding lab results/diagnosis & need follow up - Patient Disposition Discharge/Transfer:: Acute Care w/in this hosp Accepting Physician:: Dr. Hinton Time Called:: [id number] Time Responded:: 13:45 Admitted to:: Med/Surg Spoke to:: Dr. Hinton Admitting Medical Physician:: Dr. Hinton Condition at Disposition:: Stable, Improved
[2017-05-30 13:04] LABS: % EOSINOPHILS 1.1 % (0.0-5.0); % LYMPHOCYTES 19.3 % (20.0-50.0); % MONOCYTES 3.6 % (2.0-10.0); EOSINOPHILE ABSOLUTE 0.1 Th/cmm (0.1-0.4); HEMATOCRIT 56.8 % (41.0-60); HEMOGLOBIN 18.8 gm/dL (12-16); LYMPHOCYTE ABSOLUTE 1.5 Th/cmm (1.5-3.0); MEAN CELL VOLUME 91.3 fl (80-99); MEAN CORPUSCULAR HEMOGLOBIN 30.2 pg (26.0-30.0); MEAN CORPUSCULAR HGB CONC 33.1 pg (28.0-36.0); MEAN PLATELET VOLUME 9.6 fl; MONOCYTE ABSOLUTE 0.3 Th/cmm (0.3-1.0); NEUTROPHILE ABSOLUTE 5.9 Th/cmm (1.8-8.0); PLATELET COUNT 181 Th/cmm (150-400); RED BLOOD COUNT 6.22 Mil/cmm (4.30-5.70); RED CELL DISTRIBUTION WIDTH 12.3 % (11.5-20.0); WHITE BLOOD COUNT 7.8 Th/cmm (4.8-10.8)
[2017-05-30 13:17] LABS: ALB/GLOB RATIO 1.4 (1.0-1.8); ALBUMIN 4.6 gm/dL (4.2-5.5); ALKALINE PHOSPHATASE 42 U/L (34-104); AMYLASE SERUM 38 U/L (29-103); BILIRUBIN,TOTAL 0.5 mg/dL (0.3-1.0); BUN - UREA NITROGEN 17 mg/dL (7-25); CALCIUM SERUM 9.6 mg/dL (8.6-10.3); CHLORIDE 101 mEq/L (98-107); CREATININE - SERUM 0.5 mg/dL (0.7-1.3); GFR AFRICAN-AMERICAN > 60.0 ml/min (>90); GFR NON AFRICAN-AMERICAN > 60.0 ml/min; GLUCOSE 91 mg/dL (70-105); LIPASE 17 U/L (11-82); SGOT 11 U/L (13-39); SGPT/ALT 15 U/L (7-52); SODIUM SERUM 136 mEq/L (136-145); TOTAL PROTEIN,SERUM 7.8 gm/dL (6.0-8.3)
[2017-05-30 14:56] VITALS: BP 109/79
[2017-05-30] MEDS: D5-0.45NS 1,000 ML IV SCH (17:22)
[2017-05-30] MEDS ORDERED: DEXTROSE 10% IV PRN (19:31)
[2017-05-30] MEDS ORDERED: Magnesium Hydroxide (MOM) 30 mL UDC GT PRN (19:31)
[2017-05-30] MEDS ORDERED: [UNRECOGNIZED DRUG - OTHER] IV PRN (19:31)
[2017-05-30] MEDS ORDERED: Non-Formulary Item 1 EA (Acetaminophen [8 Hour] 650 MG) GT PRN (19:31)
[2017-05-30] MEDS ORDERED: Non-Formulary Item 1 EA (Glucagon,Human Recombinant [Glucagon Emergency Kit] 1 MG) IJ PRN (19:31)
[2017-05-30] MEDS ORDERED: Albuterol Nebulizer 2.5mg/3mL HHN PRN (19:36)
[2017-05-31] MEDS: D5-0.45NS 1,000 ML IV SCH ×2 (05:12→17:59)
[2017-05-31 06:44] LABS: % BASOPHILS 0.3 % (0.0-2.0); % EOSINOPHILS 2.5 % (0.0-5.0); % MONOCYTES 8.3 % (2.0-10.0); % NEUTROPHILS 58.9 % (40.0-80.0); EOSINOPHILE ABSOLUTE 0.2 Th/cmm (0.1-0.4); HEMOGLOBIN 17.3 gm/dL (12-16); INR 1.21 (0.5-1.4); LYMPHOCYTE ABSOLUTE 2.2 Th/cmm (1.5-3.0); MEAN CELL VOLUME 92.1 fl (80-99); MEAN CORPUSCULAR HEMOGLOBIN 30.9 pg (26.0-30.0); MEAN CORPUSCULAR HGB CONC 33.6 pg (28.0-36.0); MEAN PLATELET VOLUME 10.2 fl; MONOCYTE ABSOLUTE 0.6 Th/cmm (0.3-1.0); NEUTROPHILE ABSOLUTE 4.5 Th/cmm (1.8-8.0); PLATELET COUNT 173 Th/cmm (150-400); PROTHROMBIN TIME (TEST) 12.7 SECONDS (9.5-11.5); RED CELL DISTRIBUTION WIDTH 12.3 % (11.5-20.0); WHITE BLOOD COUNT 7.5 Th/cmm (4.8-10.8)
[2017-05-31 06:45] LABS: ALB/GLOB RATIO 1.4 (1.0-1.8); ALBUMIN 4.1 gm/dL (4.2-5.5); ALKALINE PHOSPHATASE 37 U/L (34-104); BILIRUBIN,TOTAL 0.6 mg/dL (0.3-1.0); BUN - UREA NITROGEN 16 mg/dL (7-25); CARBON DIOXIDE 29.6 mEq/L (21.0-31.0); CHLORIDE 99 mEq/L (98-107); CREATININE - SERUM 0.6 mg/dL (0.7-1.3); GFR AFRICAN-AMERICAN > 60.0 ml/min (>90); GFR NON AFRICAN-AMERICAN > 60.0 ml/min; GLUCOSE 93 mg/dL (70-105); POTASSIUM SERUM 3.6 mEq/L (3.5-5.1); SGOT 10 U/L (13-39); SGPT/ALT 12 U/L (7-52); SODIUM SERUM 135 mEq/L (136-145); TOTAL PROTEIN,SERUM 7.1 gm/dL (6.0-8.3)
[2017-05-31 06:52] LABS: HEMATOCRIT 51.6 % (41.0-60)
[2017-05-31] MEDS: Docusate Sodium 100 mg/10 mL UD GT SCH ×2 (09:00→18:00)
[2017-05-31] MEDS: KETOCONAZOLE 2% 120 ML SHAMP TP SCH (09:56)
--- NOTE | 2017-05-31 10:41 | Diagnostic Imaging Report ---
Upper GI (Limited) HISTORY: Gastrostomy tube placement Water-soluble contrast was instilled through the patient's gastrostomy tube. The exam demonstrates opacification of the gastric lumen with flow contrast into the small bowel. IMPRESSION: 1. Confirmation of gastrostomy tube within the gastric lumen.
[2017-05-31] MEDS ORDERED: Diatrizoate Meglumine/Diatri 30 mL Sol PO ONE (11:29)
--- NOTE | 2017-05-31 13:57 | Internal Medicine Prog Note ---
Internal Medicine Subjective - Subjective Service Date: 05/31/17 ([id number]) Internal Medicine Objective - Results Result Diagrams: 05/31/17 05:45 05/31/17 05:45 Recent Labs: Laboratory Last Values WBC 7.5 Th/cmm (4.8-10.8) 05/31/17 05:45 RBC 5.60 Mil/cmm (4.30-5.70) 05/31/17 05:45 Hgb 17.3 gm/dL (12-16) 05/31/17 05:45 Hct 51.6 % (41.0-60) D 05/31/17 05:45 MCV 92.1 fl (80-99) 05/31/17 05:45 MCH 30.9 pg (26.0-30.0) H 05/31/17 05:45 MCHC Differential 33.6 pg (28.0-36.0) 05/31/17 05:45 RDW 12.3 % (11.5-20.0) 05/31/17 05:45 Plt Count 173 Th/cmm (150-400) 05/31/17 05:45 MPV 10.2 fl 05/31/17 05:45 Neutrophils % 58.9 % (40.0-80.0) 05/31/17 05:45 Lymphocytes % 30.0 % (20.0-50.0) 05/31/17 05:45 Monocytes % 8.3 % (2.0-10.0) 05/31/17 05:45 Eosinophils % 2.5 % (0.0-5.0) 05/31/17 05:45 Basophils % 0.3 % (0.0-2.0) 05/31/17 05:45 PT 12.7 SECONDS (9.5-11.5) H 05/31/17 05:45 INR 1.21 (0.5-1.4) 05/31/17 05:45 PTT (Actin FS) 29.9 SECONDS (26.0-38.0) 05/31/17 05:45 Sodium 135 mEq/L (136-145) L 05/31/17 05:45 Potassium 3.6 mEq/L (3.5-5.1) 05/31/17 05:45 Chloride 99 mEq/L (98-107) 05/31/17 05:45 Carbon Dioxide 29.6 mEq/L (21.0-31.0) 05/31/17 05:45 Anion Gap 10.0 (7.0-16.0) 05/31/17 05:45 BUN 16 mg/dL (7-25) 05/31/17 05:45 Creatinine 0.6 mg/dL (0.7-1.3) L 05/31/17 05:45 Est GFR ( Amer) > 60.0 ml/min (>90) 05/31/17 05:45 Est GFR (Non-Af Amer) > 60.0 ml/min 05/31/17 05:45 BUN/Creatinine Ratio 26.7 05/31/17 05:45 Glucose 93 mg/dL (70-105) 05/31/17 05:45 Calcium 9.0 mg/dL (8.6-10.3) 05/31/17 05:45 Total Bilirubin 0.6 mg/dL (0.3-1.0) 05/31/17 05:45 AST 10 U/L (13-39) L 05/31/17 05:45 ALT 12 U/L (7-52) 05/31/17 05:45 Alkaline Phosphatase 37 U/L (34-104) 05/31/17 05:45 Total Protein 7.1 gm/dL (6.0-8.3) 05/31/17 05:45 Albumin 4.1 gm/dL (4.2-5.5) L 05/31/17 05:45 Globulin 3.0 gm/dL 05/31/17 05:45 Albumin/Globulin Ratio 1.4 (1.0-1.8) 05/31/17 05:45 Amylase 38 U/L (29-103) 05/30/17 12:55 Lipase 17 U/L (11-82) 05/30/17 12:55 - Physical Exam Vitals and I&O: Vital Signs Temp 97.8 F 05/31/17 12:07 Pulse 75 05/31/17 12:07 Resp 17 05/31/17 12:07 BP 97/49 05/31/17 12:07 Pulse Ox 97 05/31/17 12:07 Intake & Output 05/30/17 05/31/17 05/31/17 18:59 06:59 18:59 Intake Total 97.333 849.333 Balance 97.333 849.333 Weight (lbs) 142 lb Intake: Intake, IV Amount 97.333 849.333 D5-0.45NS 1,000 ml @ 80 97.333 849.333 mls/hr IV .[id number] [facility] Rx #:[id number] Other: Weight Source Bedscale Active Medications: Current Medications Acetaminophen (Tylenol) 650 mg PO Q4H PRN PRN Reason: Pain Or Fever above 101 Stop: 07/29/17 19:35 Albuterol Sulfate (Albuterol 2.5mg/3ml Neb Ud) 2.5 mg HHN Q2HRT PRN PRN Reason: Shortness of Breath or Wheeze Stop: 07/29/17 19:35 Docusate Sodium (Colace) 100 mg GT BID [facility] Stop: 07/30/17 08:59 Last Admin: 05/31/17 09:00 Dose: Not Given Famotidine (Pepcid) 20 mg GT DAILY [facility] Stop: 07/30/17 08:59 Last Admin: 05/31/17 09:00 Dose: Not Given Heparin Sodium (Porcine) (Heparin) 5,000 units SUBQ Q12HR [facility] Stop: 07/29/17 20:59 Last Admin: 05/31/17 08:56 Dose: 5,000 units Dextrose/Sodium Chloride (D5-0.45ns) 1,000 mls @ 80 mls/hr IV .[id number] [facility] Stop: 07/29/17 16:59 Last Admin: 05/31/17 05:12 Dose: 80 mls/hr Ketoconazole (Nizoral) 10 ml TP DAILY [facility] Stop: 07/30/17 08:59 Levetiracetam (Keppra) 500 mg PO BID [facility] Stop: 07/30/17 08:59 Last Admin: 05/31/17 09:01 Dose: Not Given Magnesium Hydroxide (Milk Of Magnesia) 30 ml GT HS PRN PRN Reason: Constipation Stop: 07/29/17 19:30 Nitroglycerin (Nitrostat) 0.4 mg SL Q5MIN PRN PRN Reason: CHEST PAIN X3 Stop: 07/29/17 19:30 Ondansetron HCl (Zofran) 4 mg IV Q8H PRN PRN Reason: Nausea / Vomiting Stop: 07/29/17 19:35 Zolpidem Tartrate (Ambien) 10 mg PO HS PRN PRN Reason: Insomnia Stop: 07/29/17 19:35
--- NOTE | 2017-05-31 15:37 | History & Physical ---
ADMIT DATE: 05/31/2017 CHIEF COMPLAINT: G-tube malfunction. HISTORY OF PRESENT ILLNESS: This is a 32-year-old male who is a resident of [facility], admitted here to [facility] due to G-tube malfunction. The patient did not have any fevers at the SNF. For further management, the patient is now admitted. PAST MEDICAL HISTORY: Hypertension, diabetes, CVA, TIA, dyslipidemia, dementia, cerebral palsy. FAMILY HISTORY: Noncontributory. SOCIAL HISTORY: The patient is a senior care resident requiring 24-hour nursing care. SURGICAL HISTORY: PEG. ALLERGIES: No drug allergies. REVIEW OF SYSTEMS: Unable to obtain due to patient's mental status. PHYSICAL EXAMINATION: GENERAL: This is a young male, awake, not really interactive, but in no apparent distress. VITAL SIGNS: Temperature 97.8, heart rate 75, blood pressure 197/49, respirations 17, O2 97%. HEENT: Head; normocephalic, atraumatic. NECK: Supple. No mass. LUNGS: Clear bilaterally. HEART: Regular rate and rhythm. ABDOMEN: Soft, nontender. LABORATORY DATA: WBC 7.5, H and H 17.3 and 51.6, platelet of 173. Sodium 135, potassium 3.2, chloride 99, BUN 16, creatinine 0.6, albumin 4.1. DIAGNOSTIC DATA: The patient had an upper GI series done and the impression is confirmation of G-tube placement within the gastric lumen. ASSESSMENT: G-tube malfunction, cerebral palsy, hyponatremia, hypertension, diabetes. PLAN: We will get GI on the case for G-tube replacement. Keep patient on IV fluids for hydration. Keep n.p.o. for now. Seizure precautions will be initiated. We will continue to follow this patient. JOB# [id number]
[2017-06-01] MEDS: D5-0.45NS 1,000 ML IV SCH ×2 (04:28→18:09)
[2017-06-01 06:40] LABS: % BASOPHILS 0.4 % (0.0-2.0); % EOSINOPHILS 2.9 % (0.0-5.0); % LYMPHOCYTES 33.1 % (20.0-50.0); % MONOCYTES 8.2 % (2.0-10.0); % NEUTROPHILS 55.4 % (40.0-80.0); EOSINOPHILE ABSOLUTE 0.1 Th/cmm (0.1-0.4); HEMATOCRIT 48.6 % (41.0-60); HEMOGLOBIN 16.5 gm/dL (12-16); LYMPHOCYTE ABSOLUTE 1.6 Th/cmm (1.5-3.0); MEAN CELL VOLUME 91.8 fl (80-99); MEAN CORPUSCULAR HEMOGLOBIN 31.2 pg (26.0-30.0); MEAN PLATELET VOLUME 10.6 fl; MONOCYTE ABSOLUTE 0.4 Th/cmm (0.3-1.0); NEUTROPHILE ABSOLUTE 2.7 Th/cmm (1.8-8.0); PLATELET COUNT 168 Th/cmm (150-400); RED CELL DISTRIBUTION WIDTH 12.4 % (11.5-20.0); WHITE BLOOD COUNT 4.8 Th/cmm (4.8-10.8)
[2017-06-01 07:16] LABS: BUN - UREA NITROGEN 8 mg/dL (7-25); CALCIUM SERUM 8.8 mg/dL (8.6-10.3); CARBON DIOXIDE 27.4 mEq/L (21.0-31.0); CHLORIDE 102 mEq/L (98-107); CREATININE - SERUM 0.5 mg/dL (0.7-1.3); GFR AFRICAN-AMERICAN > 60.0 ml/min (>90); GFR NON AFRICAN-AMERICAN > 60.0 ml/min; GLUCOSE 85 mg/dL (70-105); POTASSIUM SERUM 3.4 mEq/L (3.5-5.1); SODIUM SERUM 135 mEq/L (136-145)
[2017-06-01] MEDS: Docusate Sodium 100 mg/10 mL UD GT SCH ×2 (08:40→18:06)
[2017-06-01] MEDS: KETOCONAZOLE 2% 120 ML SHAMP TP SCH (08:43)
[2017-06-01] MEDS ORDERED: Potassium Chloride 20 mEq ER Tab PO ONE (12:40)
[2017-06-01] MEDS ORDERED: Diatrizoate Meglumine/Diatri 30 mL Sol PO ONE (14:11)
--- NOTE | 2017-06-01 14:49 | Diagnostic Imaging Report ---
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 40 Bobby contrast was instilled through the patient's gastrostomy tube. The exam demonstrates opacification of the gastric lumen with flow of contrast into the small bowel. No extravasation. IMPRESSION: 1. Confirmation of gastrostomy tube within the gastric lumen.
--- NOTE | 2017-06-01 15:17 | Internal Medicine Prog Note ---
Internal Medicine Subjective - Subjective Patient seen and examined:: with staff, chart reviewed Patient is:: non-verbal, non-interactive, in bed Patient Complaints of:: congestion, cough Per staff patient has:: no adverse event, no episodes of fall, tolerating meds Internal Medicine Objective - Results Result Diagrams: 06/01/17 06:05 06/01/17 06:05 Recent Labs: Laboratory Last Values WBC 4.8 Th/cmm (4.8-10.8) 06/01/17 06:05 RBC 5.30 Mil/cmm (4.30-5.70) 06/01/17 06:05 Hgb 16.5 gm/dL (12-16) 06/01/17 06:05 Hct 48.6 % (41.0-60) 06/01/17 06:05 MCV 91.8 fl (80-99) 06/01/17 06:05 MCH 31.2 pg (26.0-30.0) H 06/01/17 06:05 MCHC Differential 34.0 pg (28.0-36.0) 06/01/17 06:05 RDW 12.4 % (11.5-20.0) 06/01/17 06:05 Plt Count 168 Th/cmm (150-400) 06/01/17 06:05 MPV 10.6 fl 06/01/17 06:05 Neutrophils % 55.4 % (40.0-80.0) 06/01/17 06:05 Lymphocytes % 33.1 % (20.0-50.0) 06/01/17 06:05 Monocytes % 8.2 % (2.0-10.0) 06/01/17 06:05 Eosinophils % 2.9 % (0.0-5.0) 06/01/17 06:05 Basophils % 0.4 % (0.0-2.0) 06/01/17 06:05 PT 12.7 SECONDS (9.5-11.5) H 05/31/17 05:45 INR 1.21 (0.5-1.4) 05/31/17 05:45 PTT (Actin FS) 29.9 SECONDS (26.0-38.0) 05/31/17 05:45 Sodium 135 mEq/L (136-145) L 06/01/17 06:05 Potassium 3.4 mEq/L (3.5-5.1) L 06/01/17 06:05 Chloride 102 mEq/L (98-107) 06/01/17 06:05 Carbon Dioxide 27.4 mEq/L (21.0-31.0) 06/01/17 06:05 Anion Gap 9.0 (7.0-16.0) 06/01/17 06:05 BUN 8 mg/dL (7-25) 06/01/17 06:05 Creatinine 0.5 mg/dL (0.7-1.3) L 06/01/17 06:05 Est GFR ( Amer) > 60.0 ml/min (>90) 06/01/17 06:05 Est GFR (Non-Af Amer) > 60.0 ml/min 06/01/17 06:05 BUN/Creatinine Ratio 16.0 06/01/17 06:05 Glucose 85 mg/dL (70-105) 06/01/17 06:05 Calcium 8.8 mg/dL (8.6-10.3) 06/01/17 06:05 Total Bilirubin 0.6 mg/dL (0.3-1.0) 05/31/17 05:45 AST 10 U/L (13-39) L 05/31/17 05:45 ALT 12 U/L (7-52) 05/31/17 05:45 Alkaline Phosphatase 37 U/L (34-104) 05/31/17 05:45 Total Protein 7.1 gm/dL (6.0-8.3) 05/31/17 05:45 Albumin 4.1 gm/dL (4.2-5.5) L 05/31/17 05:45 Globulin 3.0 gm/dL 05/31/17 05:45 Albumin/Globulin Ratio 1.4 (1.0-1.8) 05/31/17 05:45 Amylase 38 U/L (29-103) 05/30/17 12:55 Lipase 17 U/L (11-82) 05/30/17 12:55 - Physical Exam Vitals and I&O: Vital Signs Temp 98 F 06/01/17 12:00 Pulse 70 06/01/17 12:00 Resp 18 06/01/17 12:00 BP 110/71 06/01/17 12:00 Pulse Ox 99 04/20/18 12:00 Intake & Output 05/31/17 06/01/17 06/01/17 18:59 06:59 18:59 Intake Total 1000 838.667 Balance 1000 838.667 Weight (lbs) 64.864 kg Intake: Intake, IV Amount 1000 838.667 D5-0.45NS 1,000 ml @ 80 1000 838.667 mls/hr IV .[id number] [facility] Rx #:[id number] Other: # Voids 3 # Bowel Movements 1 Stool Characteristics Soft Brown Weight Source Bedscale Active Medications: Current Medications Acetaminophen (Tylenol) 650 mg PO Q4H PRN PRN Reason: Pain Or Fever above 101 Stop: 07/29/17 19:35 Albuterol Sulfate (Albuterol 2.5mg/3ml Neb Ud) 2.5 mg HHN Q2HRT PRN PRN Reason: Shortness of Breath or Wheeze Stop: 07/29/17 19:35 Docusate Sodium (Colace) 100 mg GT BID [facility] Stop: 07/30/17 08:59 Last Admin: 06/01/17 08:40 Dose: Not Given Famotidine (Pepcid) 20 mg GT DAILY [facility] Stop: 07/30/17 08:59 Last Admin: 06/01/17 08:40 Dose: Not Given Heparin Sodium (Porcine) (Heparin) 5,000 units SUBQ Q12HR [facility] Stop: 07/29/17 20:59 Last Admin: 06/01/17 08:43 Dose: 5,000 units Dextrose/Sodium Chloride (D5-0.45ns) 1,000 mls @ 80 mls/hr IV .[id number] [facility] Stop: 07/29/17 16:59 Last Admin: 06/01/17 04:28 Dose: 80 mls/hr Ketoconazole (Nizoral) 10 ml TP DAILY [facility] Stop: 07/30/17 08:59 Last Admin: 06/01/17 08:43 Dose: 10 ml Levetiracetam (Keppra) 500 mg PO BID [facility] Stop: 07/30/17 08:59 Last Admin: 06/01/17 08:40 Dose: Not Given Magnesium Hydroxide (Milk Of Magnesia) 30 ml GT HS PRN PRN Reason: Constipation Stop: 07/29/17 19:30 Nitroglycerin (Nitrostat) 0.4 mg SL Q5MIN PRN PRN Reason: CHEST PAIN X3 Stop: 07/29/17 19:30 Ondansetron HCl (Zofran) 4 mg IV Q8H PRN PRN Reason: Nausea / Vomiting Stop: 07/29/17 19:35 Zolpidem Tartrate (Ambien) 10 mg PO HS PRN PRN Reason: Insomnia Stop: 07/29/17 19:35 General: demented HEENT: NC/AT, PERRLA, thinning hair Neck: Supple Lungs: congested, rales, ronchi Cardiovascular: RRR, Normal S1, Normal S2 Abdomen: soft, non-tender, globular, +GT Extremities: excoriation, contracture Internal Medicine Assmt/Plan - Assessment Assessment: g t malfunction anemia cp mr bedbound functional quadriplegia - Plan Plan: cont on ppi cont w feeding aspiration precaution cpm Nutritional Asmnt/Malnutr-PDOC - Dietary Evaluation Malnutrition Findings (Please click <Entered> for more info): Nutritional Asmnt/Malnutrition Start: 05/31/17 16: 19 Text: Status: Complete Freq: Document 05/31/17 16:21 LCHENG (Rec: 05/31/17 16:39 LCHENG [email or web address]) Nutritional Asmnt/Malnutrition Patient General Information Nutritional Screening High Risk Diagnosis Gtube replacement, malfunction Pertinent Medical Hx/Surgical Hx HTN, DM, CVA/TIA, dyslipdiemia , dementia, CP, PEG/Gtube Subjective Information Pt seen lying in bed, smiling, non verbal. JOSE DAVID Jama called for TF consult. Pt was on Nutren 2.0 5 cans daily. RN notified we have Nutren 2.0 in 1L bag. Gtube site with temporary colon in placed noted. Current Diet Order/ Nutrition Support NPO Pertinent Medications colace, D5-0.45ns, pepcid Pertinent Labs 05/31 Na 135, Cr 0.6, AST 10 Nutritional Hx/Data Height 1.75 m Height (Calculated Centimeters) 175.3 Current Weight (lbs) 64.41 kg Weight (Calculated Kilograms) 64.4 Weight (Calculated Grams) 95371.1 [place] Body Weight 160 Body Mass Index (BMI) 20.9 Weight Status Approriate GI Symptoms GI Symptoms None Last BM no record Difficult in: None Usual diet at home Per Chart, nutren 2.0 5 cans daily to provide 1250ml total volume, 2500kcal Skin Integrity/Comment: scab on righ thigh Estimated Nutritional Goals BEE in Kcals: Using Current wt Calories/Kcals/Kg 25-30 Kcals Calculated 3438-3418 Protein: Using Current wt Protein g/k-1.2 Protein Calculated 65-78 Fluid: ml 1625-1950ml (1ml/kcal) Nutritional Problem No current Nutrition Prob Problem N/A Malnutrition Alert Protein-Calorie Malnutrition N/A Is there a minimum of two criteria No selected? Query Text:Check all the applicable criteria. A minimum of two criteria are recommended for diagnosis of either severe or non-severe malnutrition. Intervention/Recommendation Comments 1. Recommend Nutren 2.0 at 45ml/hr x 20hr. It provides 900ml totoal volume, 392421mbhc, 72g protein, 632ml free water, meeting 100% of nutritional needs. 2. Monitor TF rate, tolerance, wt weekly, skin integrity and labs 3. F/U as high risk in 2-3 days, 06/02-06/03 Expected Outcomes/Goals Expected Outcomes/Goals 1. Pt to meet at least 75% of nutritional needs via nutrition support with tolerance 2. Wt stability, skin to remain intact, labs to approach WNL.
--- NOTE | 2017-06-01 15:37 | Operative Report ---
DATE OF SURGERY: 06/01/2017 PROCEDURE: G-tube replacement. DESCRIPTION OF PROCEDURE: The procedure took place at the bedside of the medical surgical unit of [facility]. The patient was kept in a supine position. The existing G-tube, which is actually a 16[place] Bradshaw catheter was removed after its inner balloon was deflated using a syringe. Using the same gastrocutaneous fistula site, a new 16[place] replacement G-tube was inserted into the stomach. Its inner balloon tip was inflated using 15 mL of sterile water. The outer bumper was placed as close to the skin as possible. Overlying dressing was placed. The tube was not noted to be in good position. The patient tolerated the procedure well. No complications are anticipated. RECOMMENDATIONS: We will confirm placement of a G-tube in stomach by Gastrografin x-ray. If x-ray confirms placement of the stomach, then may use G-tube for tube feedings and water flushes and medications as tolerated. Thank you, Dr. Lamine Hinton for involving us in the care of your patient. If you have any further questions, please call us. JOB# [id number]
[2017-06-02] MEDS: D5-0.45NS 1,000 ML IV SCH ×2 (05:45→17:42)
--- NOTE | 2017-06-02 08:48 | GI Progress Note ---
Subjective - Review of Systems Service Date: 06/02/17 Subjective: Tolerating tube feeds Objective - Results Result Diagrams: 06/01/17 06:05 06/01/17 06:05 Recent Labs: Laboratory Last Values WBC 4.8 Th/cmm (4.8-10.8) 06/01/17 06:05 RBC 5.30 Mil/cmm (4.30-5.70) 06/01/17 06:05 Hgb 16.5 gm/dL (12-16) 06/01/17 06:05 Hct 48.6 % (41.0-60) 06/01/17 06:05 MCV 91.8 fl (80-99) 06/01/17 06:05 MCH 31.2 pg (26.0-30.0) H 06/01/17 06:05 MCHC Differential 34.0 pg (28.0-36.0) 06/01/17 06:05 RDW 12.4 % (11.5-20.0) 06/01/17 06:05 Plt Count 168 Th/cmm (150-400) 06/01/17 06:05 MPV 10.6 fl 06/01/17 06:05 Neutrophils % 55.4 % (40.0-80.0) 06/01/17 06:05 Lymphocytes % 33.1 % (20.0-50.0) 06/01/17 06:05 Monocytes % 8.2 % (2.0-10.0) 06/01/17 06:05 Eosinophils % 2.9 % (0.0-5.0) 06/01/17 06:05 Basophils % 0.4 % (0.0-2.0) 06/01/17 06:05 PT 12.7 SECONDS (9.5-11.5) H 05/31/17 05:45 INR 1.21 (0.5-1.4) 05/31/17 05:45 PTT (Actin FS) 29.9 SECONDS (26.0-38.0) 05/31/17 05:45 Sodium 135 mEq/L (136-145) L 06/01/17 06:05 Potassium 3.4 mEq/L (3.5-5.1) L 06/01/17 06:05 Chloride 102 mEq/L (98-107) 06/01/17 06:05 Carbon Dioxide 27.4 mEq/L (21.0-31.0) 06/01/17 06:05 Anion Gap 9.0 (7.0-16.0) 06/01/17 06:05 BUN 8 mg/dL (7-25) 06/01/17 06:05 Creatinine 0.5 mg/dL (0.7-1.3) L 06/01/17 06:05 Est GFR ( Amer) > 60.0 ml/min (>90) 06/01/17 06:05 Est GFR (Non-Af Amer) > 60.0 ml/min 06/01/17 06:05 BUN/Creatinine Ratio 16.0 06/01/17 06:05 Glucose 85 mg/dL (70-105) 06/01/17 06:05 Calcium 8.8 mg/dL (8.6-10.3) 06/01/17 06:05 Total Bilirubin 0.6 mg/dL (0.3-1.0) 05/31/17 05:45 AST 10 U/L (13-39) L 05/31/17 05:45 ALT 12 U/L (7-52) 05/31/17 05:45 Alkaline Phosphatase 37 U/L (34-104) 05/31/17 05:45 Total Protein 7.1 gm/dL (6.0-8.3) 05/31/17 05:45 Albumin 4.1 gm/dL (4.2-5.5) L 05/31/17 05:45 Globulin 3.0 gm/dL 05/31/17 05:45 Albumin/Globulin Ratio 1.4 (1.0-1.8) 05/31/17 05:45 Amylase 38 U/L (29-103) 05/30/17 12:55 Lipase 17 U/L (11-82) 05/30/17 12:55 - Physical Exam Vitals and I&O: Vital Signs Temp 98.5 F 06/02/17 04:00 Pulse 70 06/02/17 04:00 Resp 18 06/02/17 04:00 BP 105/71 06/02/17 04:00 Pulse Ox 98 06/02/17 04:00 Intake & Output 06/01/17 06/02/17 06/02/17 18:59 06:59 18:59 Intake Total 1000 1578 Balance 1000 1578 Weight (lbs) 64.127 kg Intake: Intake, IV Amount 1000 928 D5-0.45NS 1,000 ml @ 80 1000 928 mls/hr IV .[id number] [facility] Rx #:[id number] Tube Feeding 530 Other 120 Other: # Voids 3 # Bowel Movements 2 Stool Characteristics Soft Soft Liquid Brown Weight Source Bedscale Active Medications: Current Medications Acetaminophen (Tylenol) 650 mg PO Q4H PRN PRN Reason: Pain Or Fever above 101 Stop: 07/29/17 19:35 Albuterol Sulfate (Albuterol 2.5mg/3ml Neb Ud) 2.5 mg HHN Q2HRT PRN PRN Reason: Shortness of Breath or Wheeze Stop: 07/29/17 19:35 Docusate Sodium (Colace) 100 mg GT BID [facility] Stop: 07/30/17 08:59 Last Admin: 06/01/17 18:06 Dose: 100 mg Famotidine (Pepcid) 20 mg GT DAILY [facility] Stop: 07/30/17 08:59 Last Admin: 06/01/17 08:40 Dose: Not Given Heparin Sodium (Porcine) (Heparin) 5,000 units SUBQ Q12HR [facility] Stop: 07/29/17 20:59 Last Admin: 06/01/17 20:37 Dose: 5,000 units Dextrose/Sodium Chloride (D5-0.45ns) 1,000 mls @ 80 mls/hr IV .[id number] [facility] Stop: 07/29/17 16:59 Last Admin: 06/02/17 05:45 Dose: 80 mls/hr Ketoconazole (Nizoral) 10 ml TP DAILY [facility] Stop: 07/30/17 08:59 Last Admin: 06/01/17 08:43 Dose: 10 ml Levetiracetam (Keppra) 500 mg PO BID [facility] Stop: 07/30/17 08:59 Last Admin: 06/01/17 18:06 Dose: 500 mg Magnesium Hydroxide (Milk Of Magnesia) 30 ml GT HS PRN PRN Reason: Constipation Stop: 07/29/17 19:30 Nitroglycerin (Nitrostat) 0.4 mg SL Q5MIN PRN PRN Reason: CHEST PAIN X3 Stop: 07/29/17 19:30 Ondansetron HCl (Zofran) 4 mg IV Q8H PRN PRN Reason: Nausea / Vomiting Stop: 07/29/17 19:35 Zolpidem Tartrate (Ambien) 10 mg PO HS PRN PRN Reason: Insomnia Stop: 07/29/17 19:35 General: Alert HEENT: Atraumatic Cardiovascular: Regular rate Abdomen: Bowel sounds, Soft, no Tender, no Hepatomegaly, no Distended, no Rebound, no Mass, no Guarding Assessment/Plan - Problem List Patient Problems: All Active Problems GASTRIC FEEDING TUBE REPLACEMENT (Acute) - Assessment Assessment: # Dementia # Previous CVA # Cerebral palsy # Dysphagia with G tube # G tube malfunction G tube replaced at bedside on 06/01 with 16Fr tube, tolerating feeds at this time. Plan: - cont to uptitrate feeds to goal rate - flush G tube with 100cc water every 6 hours - check residuals, hold for > 100cc - G tube care GI to see as needed, please call with any questions
[2017-06-02] MEDS: Docusate Sodium 100 mg/10 mL UD GT SCH ×2 (09:48→16:52)
[2017-06-02] MEDS: KETOCONAZOLE 2% 120 ML SHAMP TP SCH (09:50)
[2017-06-02] MEDS ORDERED: Potassium Chloride 20 mEq ER Tab PO ONE (11:52)
--- NOTE | 2017-06-02 11:53 | Internal Medicine Prog Note ---
Internal Medicine Subjective - Subjective Patient seen and examined:: with staff, chart reviewed Patient is:: non-verbal, non-interactive, in bed Patient Complaints of:: congestion, cough Per staff patient has:: no adverse event, no episodes of fall, tolerating meds Internal Medicine Objective - Results Result Diagrams: 06/01/17 06:05 06/01/17 06:05 Recent Labs: Laboratory Last Values WBC 4.8 Th/cmm (4.8-10.8) 06/01/17 06:05 RBC 5.30 Mil/cmm (4.30-5.70) 06/01/17 06:05 Hgb 16.5 gm/dL (12-16) 06/01/17 06:05 Hct 48.6 % (41.0-60) 06/01/17 06:05 MCV 91.8 fl (80-99) 06/01/17 06:05 MCH 31.2 pg (26.0-30.0) H 06/01/17 06:05 MCHC Differential 34.0 pg (28.0-36.0) 06/01/17 06:05 RDW 12.4 % (11.5-20.0) 06/01/17 06:05 Plt Count 168 Th/cmm (150-400) 06/01/17 06:05 MPV 10.6 fl 06/01/17 06:05 Neutrophils % 55.4 % (40.0-80.0) 06/01/17 06:05 Lymphocytes % 33.1 % (20.0-50.0) 06/01/17 06:05 Monocytes % 8.2 % (2.0-10.0) 06/01/17 06:05 Eosinophils % 2.9 % (0.0-5.0) 06/01/17 06:05 Basophils % 0.4 % (0.0-2.0) 06/01/17 06:05 PT 12.7 SECONDS (9.5-11.5) H 05/31/17 05:45 INR 1.21 (0.5-1.4) 05/31/17 05:45 PTT (Actin FS) 29.9 SECONDS (26.0-38.0) 05/31/17 05:45 Sodium 135 mEq/L (136-145) L 06/01/17 06:05 Potassium 3.4 mEq/L (3.5-5.1) L 06/01/17 06:05 Chloride 102 mEq/L (98-107) 06/01/17 06:05 Carbon Dioxide 27.4 mEq/L (21.0-31.0) 06/01/17 06:05 Anion Gap 9.0 (7.0-16.0) 06/01/17 06:05 BUN 8 mg/dL (7-25) 06/01/17 06:05 Creatinine 0.5 mg/dL (0.7-1.3) L 06/01/17 06:05 Est GFR ( Amer) > 60.0 ml/min (>90) 06/01/17 06:05 Est GFR (Non-Af Amer) > 60.0 ml/min 06/01/17 06:05 BUN/Creatinine Ratio 16.0 06/01/17 06:05 Glucose 85 mg/dL (70-105) 06/01/17 06:05 Calcium 8.8 mg/dL (8.6-10.3) 06/01/17 06:05 Total Bilirubin 0.6 mg/dL (0.3-1.0) 05/31/17 05:45 AST 10 U/L (13-39) L 05/31/17 05:45 ALT 12 U/L (7-52) 05/31/17 05:45 Alkaline Phosphatase 37 U/L (34-104) 05/31/17 05:45 Total Protein 7.1 gm/dL (6.0-8.3) 05/31/17 05:45 Albumin 4.1 gm/dL (4.2-5.5) L 05/31/17 05:45 Globulin 3.0 gm/dL 05/31/17 05:45 Albumin/Globulin Ratio 1.4 (1.0-1.8) 05/31/17 05:45 Amylase 38 U/L (29-103) 05/30/17 12:55 Lipase 17 U/L (11-82) 05/30/17 12:55 - Physical Exam Vitals and I&O: Vital Signs Temp 98.5 F 06/02/17 04:00 Pulse 80 06/02/17 08:30 Resp 20 06/02/17 10:37 BP 105/71 06/02/17 04:00 Pulse Ox 96 06/02/17 08:30 Intake & Output 06/01/17 06/02/17 06/02/17 18:59 06:59 18:59 Intake Total 1000 1578 Balance 1000 1578 Weight (lbs) 64.127 kg Intake: Intake, IV Amount 1000 928 D5-0.45NS 1,000 ml @ 80 1000 928 mls/hr IV .[id number] [facility] Rx #:[id number] Tube Feeding 530 Other 120 Other: # Voids 3 # Bowel Movements 2 Stool Characteristics Soft Soft Soft Liquid Liquid Brown Brown Weight Source Bedscale Active Medications: Current Medications Acetaminophen (Tylenol) 650 mg PO Q4H PRN PRN Reason: Pain Or Fever above 101 Stop: 07/29/17 19:35 Albuterol Sulfate (Albuterol 2.5mg/3ml Neb Ud) 2.5 mg HHN Q2HRT PRN PRN Reason: Shortness of Breath or Wheeze Stop: 07/29/17 19:35 Docusate Sodium (Colace) 100 mg GT BID [facility] Stop: 07/30/17 08:59 Last Admin: 06/02/17 09:48 Dose: 100 mg Famotidine (Pepcid) 20 mg GT DAILY [facility] Stop: 07/30/17 08:59 Last Admin: 06/02/17 09:48 Dose: 20 mg Heparin Sodium (Porcine) (Heparin) 5,000 units SUBQ Q12HR [facility] Stop: 07/29/17 20:59 Last Admin: 06/02/17 09:48 Dose: Not Given Ketoconazole (Nizoral) 10 ml TP DAILY [facility] Stop: 07/30/17 08:59 Last Admin: 06/02/17 09:50 Dose: 10 ml Levetiracetam (Keppra) 500 mg PO BID [facility] Stop: 07/30/17 08:59 Last Admin: 06/02/17 09:48 Dose: 500 mg Magnesium Hydroxide (Milk Of Magnesia) 30 ml GT HS PRN PRN Reason: Constipation Stop: 07/29/17 19:30 Nitroglycerin (Nitrostat) 0.4 mg SL Q5MIN PRN PRN Reason: CHEST PAIN X3 Stop: 07/29/17 19:30 Ondansetron HCl (Zofran) 4 mg IV Q8H PRN PRN Reason: Nausea / Vomiting Stop: 07/29/17 19:35 Zolpidem Tartrate (Ambien) 10 mg PO HS PRN PRN Reason: Insomnia Stop: 07/29/17 19:35 General: demented HEENT: NC/AT, PERRLA, thinning hair Neck: Supple Lungs: congested, rales, ronchi Cardiovascular: RRR, Normal S1, Normal S2 Abdomen: soft, non-tender, globular, +GT Extremities: excoriation, contracture Internal Medicine Assmt/Plan - Assessment Assessment: g t malfunction anemia cp mr bedbound functional quadriplegia low k - Plan Plan: cont on ppi cont w feeding aspiration precaution cpm replace lytes Nutritional Asmnt/Malnutr-PDOC - Dietary Evaluation Malnutrition Findings (Please click <Entered> for more info): Nutritional Asmnt/Malnutrition Start: 05/31/17 16: 19 Text: Status: Complete Freq: Document 05/31/17 16:21 [facility] ([facility]: 05/31/17 16[facility]39 [facility] Nutritional Asmnt/Malnutrition Patient General Information Nutritional Screening High Risk Diagnosis Gtube replacement, malfunction Pertinent Medical Hx/Surgical Hx HTN, DM, CVA/TIA, dyslipdiemia , dementia, CP, PEG/Gtube Subjective Information Pt seen lying in bed, smiling, non verbal. RN Wiley called for TF consult. Pt was on Nutren 2.0 5 cans daily. RN notified we have Nutren 2.0 in 1L bag. Gtube site with temporary colon in placed noted. Current Diet Order/ Nutrition Support NPO Pertinent Medications colace, D5-0.45ns, pepcid Pertinent Labs 05/31 Na 135, Cr 0.6, AST 10 Nutritional Hx/Data Height 1.75 m Height (Calculated Centimeters) 175.3 Current Weight (lbs) 64.41 kg Weight (Calculated Kilograms) 64.4 Weight (Calculated Grams) 02091.1 [place] Body Weight 160 Body Mass Index (BMI) 20.9 Weight Status Approriate GI Symptoms GI Symptoms None Last BM no record Difficult in: None Usual diet at home Per Chart, nutren 2.0 5 cans daily to provide 1250ml total volume, 2500kcal Skin Integrity/Comment: scab on righ thigh Estimated Nutritional Goals BEE in Kcals: Using Current wt Calories/Kcals/Kg 25-30 Kcals Calculated 8350-1001 Protein: Using Current wt Protein g/k-1.2 Protein Calculated 65-78 Fluid: ml 1625-1950ml (1ml/kcal) Nutritional Problem No current Nutrition Prob Problem N/A Malnutrition Alert Protein-Calorie Malnutrition N/A Is there a minimum of two criteria No selected? Query Text:Check all the applicable criteria. A minimum of two criteria are recommended for diagnosis of either severe or non-severe malnutrition. Intervention/Recommendation Comments 1. Recommend Nutren 2.0 at 45ml/hr x 20hr. It provides 900ml totoal volume, [id number], 72g protein, 632ml free water, meeting 100% of nutritional needs. 2. Monitor TF rate, tolerance, wt weekly, skin integrity and labs 3. F/U as high risk in 2-3 days, 06/02-06/03 Expected Outcomes/Goals Expected Outcomes/Goals 1. Pt to meet at least 75% of nutritional needs via nutrition support with tolerance 2. Wt stability, skin to remain intact, labs to approach WNL.
--- NOTE | 2017-06-02 21:53 | Consultation ---
DATE OF CONSULTATION: 05/31/2017 REQUESTING PHYSICIAN: Lamine Hinton DO REASON FOR CONSULTATION: Dysphagia and G-tube malfunctioning. HISTORY OF PRESENT ILLNESS: This is a 32-year-old male with G-tube dysfunction, but however, G-tube fell out and was replaced with a Bradshaw catheter. We were asked to evaluate the patient for G-tube replacement. PAST MEDICAL HISTORY: Diabetes mellitus, hypertension, old stroke versus TIA, dyslipidemia, dementia, cerebral palsy. FAMILY HISTORY: Noncontributory. SOCIAL HISTORY: No recent tobacco, alcohol, or drugs. MEDICATIONS: Here are Tylenol, albuterol, IV fluids, Colace, Pepcid, heparin, ketoconazole, milk of magnesia, nitroglycerin, Zofran, and Ambien. ALLERGIES: None. PHYSICAL EXAMINATION: VITAL SIGNS: Temperature 97.7, blood pressure noted, pulse is 70, respirations 20, O2 sat is 98%. GENERAL: The patient is a well-developed, chronically ill-appearing male who is nonverbal, in no acute distress. HEENT: Sclerae nonicteric. Oropharynx clear. CARDIOVASCULAR: Regular rate and rhythm. LUNGS: With occasional rhonchi at the bases. ABDOMEN: Soft, nontender. Intact G-tube, which is actually a small caliber Bradshaw catheter. IMPRESSION: Dysphagia with G-tube displacement and now replaced with Bradshaw catheter, which is temporary. RECOMMENDATIONS: 1. Upper GI series via the G-tube to ensure that it is in proper position in the stomach. 2. May use current G-tube for medications and feedings as tolerated. 3. We will change Bradshaw catheter to proper G-tube back tomorrow once the tube is available. JOB# [id number] [facility]
[2017-06-03] MEDS: D5-0.45NS 1,000 ML IV SCH (07:10)
[2017-06-03 07:11] LABS: ANION GAP 9.4 (7.0-16.0); BUN - UREA NITROGEN 9 mg/dL (7-25); CALCIUM SERUM 9.2 mg/dL (8.6-10.3); CARBON DIOXIDE 28.3 mEq/L (21.0-31.0); CHLORIDE 104 mEq/L (98-107); CREATININE - SERUM 0.5 mg/dL (0.7-1.3); GFR AFRICAN-AMERICAN > 60.0 ml/min (>90); GFR NON AFRICAN-AMERICAN > 60.0 ml/min; GLUCOSE 93 mg/dL (70-105); POTASSIUM SERUM 3.7 mEq/L (3.5-5.1); SODIUM SERUM 138 mEq/L (136-145)
[2017-06-03] MEDS: KETOCONAZOLE 2% 120 ML SHAMP TP SCH (09:28)
[2017-06-03] MEDS: Docusate Sodium 100 mg/10 mL UD GT SCH ×2 (09:29→16:30)
--- NOTE | 2017-06-03 10:11 | Diagnostic Imaging Report ---
CHEST X-RAY: AP view INDICATION: Fever and nonproductive cough COMPARISON: 04/04/2016 FINDINGS: Low lung lungs are seen with right basal atelectatic changes. No focal consolidation identified.. Heart size is normal. IMPRESSION: Low lung volumes and right basal atelectatic changes. There may be a mild degree of congestion. No focal consolidations identified.
[2017-06-03 10:29] LABS: URINE MICROSCOPIC INDICATED? YES; URINE SOURCE RANDOM
[2017-06-03 10:37] LABS: URINE BILIRUBIN NEGATIVE (NEGATIVE); URINE BLOOD NEGATIVE (NEGATIVE); URINE CLARITY CLEAR (CLEAR); URINE COLOR YELLOW; URINE GLUCOSE (UA) NEGATIVE (NEGATIVE); URINE KETONE NEGATIVE (NEGATIVE); URINE LEUKOCYTE ESTERASE NEGATIVE (NEGATIVE); URINE NITRATE NEGATIVE (NEGATIVE); URINE PH 7.5 (4.6 - 8.0); URINE PROTEIN NEGATIVE (NEGATIVE)
[2017-06-03 10:40] LABS: URINE BACTERIA OCCASIONAL /hpf (NONE SEEN); URINE EPITHELIAL CELLS FEW /lpf (FEW); URINE RBC 0-2 /hpf (0-5); URINE WBC 0-2 /hpf (0-5)
[2017-06-03] MEDS: cefTRIAXone 1 GM in Sodium Chloride 0.9% 50 ML IV SCH (14:16)
[2017-06-04] MEDS: D5-0.45NS 1,000 ML IV SCH (03:44)
[2017-06-04 06:10] LABS: % BASOPHILS 0.3 % (0.0-2.0); % LYMPHOCYTES 23.1 % (20.0-50.0); % MONOCYTES 6.7 % (2.0-10.0); % NEUTROPHILS 67.9 % (40.0-80.0); EOSINOPHILE ABSOLUTE 0.1 Th/cmm (0.1-0.4); HEMATOCRIT 48.9 % (41.0-60); HEMOGLOBIN 16.5 gm/dL (12-16); LYMPHOCYTE ABSOLUTE 1.5 Th/cmm (1.5-3.0); MEAN CELL VOLUME 92.1 fl (80-99); MEAN CORPUSCULAR HEMOGLOBIN 31.1 pg (26.0-30.0); MEAN CORPUSCULAR HGB CONC 33.7 pg (28.0-36.0); MEAN PLATELET VOLUME 10.6 fl; MONOCYTE ABSOLUTE 0.4 Th/cmm (0.3-1.0); NEUTROPHILE ABSOLUTE 4.4 Th/cmm (1.8-8.0); PLATELET COUNT 184 Th/cmm (150-400); RED CELL DISTRIBUTION WIDTH 12.4 % (11.5-20.0); WHITE BLOOD COUNT 6.4 Th/cmm (4.8-10.8)
[2017-06-04] MEDS: KETOCONAZOLE 2% 120 ML SHAMP TP SCH (09:27)
[2017-06-04] MEDS: Docusate Sodium 100 mg/10 mL UD GT SCH (09:27)
[2017-06-04] MEDS: cefTRIAXone 1 GM in Sodium Chloride 0.9% 50 ML IV SCH (11:30)
--- NOTE | 2017-06-04 11:30 | GI Progress Note ---
Subjective - Review of Systems Service Date: 06/04/17 Subjective: PAULINA GT FEEDS. Objective - Results Result Diagrams: 06/04/17 05:35 06/03/17 05:46 Recent Labs: Laboratory Last Values WBC 6.4 Th/cmm (4.8-10.8) 06/04/17 05:35 RBC 5.30 Mil/cmm (4.30-5.70) 06/04/17 05:35 Hgb 16.5 gm/dL (12-16) 06/04/17 05:35 Hct 48.9 % (41.0-60) 06/04/17 05:35 MCV 92.1 fl (80-99) 06/04/17 05:35 MCH 31.1 pg (26.0-30.0) H 06/04/17 05:35 MCHC Differential 33.7 pg (28.0-36.0) 06/04/17 05:35 RDW 12.4 % (11.5-20.0) 06/04/17 05:35 Plt Count 184 Th/cmm (150-400) 06/04/17 05:35 MPV 10.6 fl 06/04/17 05:35 Neutrophils % 67.9 % (40.0-80.0) 06/04/17 05:35 Lymphocytes % 23.1 % (20.0-50.0) 06/04/17 05:35 Monocytes % 6.7 % (2.0-10.0) 06/04/17 05:35 Eosinophils % 2.0 % (0.0-5.0) 06/04/17 05:35 Basophils % 0.3 % (0.0-2.0) 06/04/17 05:35 PT 12.7 SECONDS (9.5-11.5) H 05/31/17 05:45 INR 1.21 (0.5-1.4) 05/31/17 05:45 PTT (Actin FS) 29.9 SECONDS (26.0-38.0) 05/31/17 05:45 Sodium 138 mEq/L (136-145) 06/03/17 05:46 Potassium 3.7 mEq/L (3.5-5.1) 06/03/17 05:46 Chloride 104 mEq/L (98-107) 06/03/17 05:46 Carbon Dioxide 28.3 mEq/L (21.0-31.0) 06/03/17 05:46 Anion Gap 9.4 (7.0-16.0) 06/03/17 05:46 BUN 9 mg/dL (7-25) 06/03/17 05:46 Creatinine 0.5 mg/dL (0.7-1.3) L 06/03/17 05:46 Est GFR ( Amer) > 60.0 ml/min (>90) 06/03/17 05:46 Est GFR (Non-Af Amer) > 60.0 ml/min 06/03/17 05:46 BUN/Creatinine Ratio 18.0 06/03/17 05:46 Glucose 93 mg/dL (70-105) 06/03/17 05:46 Calcium 9.2 mg/dL (8.6-10.3) 06/03/17 05:46 Total Bilirubin 0.6 mg/dL (0.3-1.0) 05/31/17 05:45 AST 10 U/L (13-39) L 05/31/17 05:45 ALT 12 U/L (7-52) 05/31/17 05:45 Alkaline Phosphatase 37 U/L (34-104) 05/31/17 05:45 Total Protein 7.1 gm/dL (6.0-8.3) 05/31/17 05:45 Albumin 4.1 gm/dL (4.2-5.5) L 05/31/17 05:45 Globulin 3.0 gm/dL 05/31/17 05:45 Albumin/Globulin Ratio 1.4 (1.0-1.8) 05/31/17 05:45 Amylase 38 U/L (29-103) 05/30/17 12:55 Lipase 17 U/L (11-82) 05/30/17 12:55 Urine Source RANDOM 06/03/17 10:18 Urine Color YELLOW 06/03/17 10:18 Urine Clarity CLEAR (CLEAR) 06/03/17 10:18 Urine pH 7.5 (4.6 - 8.0) 06/03/17 10:18 Ur Specific [place] 1.015 (1.005-1.030) 06/03/17 10:18 Urine Protein NEGATIVE mg/dL (NEGATIVE) 06/03/17 10:18 Urine Glucose (UA) NEGATIVE mg/dL (NEGATIVE) 06/03/17 10:18 Urine Ketones NEGATIVE mg/dL (NEGATIVE) 06/03/17 10:18 Urine Blood NEGATIVE (NEGATIVE) 06/03/17 10:18 Urine Nitrate NEGATIVE (NEGATIVE) 06/03/17 10:18 Urine Bilirubin NEGATIVE (NEGATIVE) 06/03/17 10:18 Urine Urobilinogen 2.0 E.U./dL (0.2 - 1.0) 06/03/17 10:18 Ur Leukocyte Esterase NEGATIVE (NEGATIVE) 06/03/17 10:18 Urine RBC 0-2 /hpf (0-5) H 06/03/17 10:18 Urine WBC 0-2 /hpf (0-5) 06/03/17 10:18 Ur Epithelial Cells FEW /lpf (FEW) 06/03/17 10:18 Urine Bacteria OCCASIONAL /hpf (NONE SEEN) 06/03/17 10:18 Urine Mucus FEW /lpf (FEW) 06/03/17 10:18 - Physical Exam Vitals and I&O: Vital Signs Temp 97.6 F 06/04/17 08:00 Pulse 115 06/04/17 08:00 Resp 17 06/04/17 08:00 BP 110/71 06/04/17 08:00 Pulse Ox 95 06/04/17 08:00 Intake & Output 06/03/17 06/04/17 06/04/17 18:59 06:59 18:59 Intake Total 872.619 2596 Balance 619.610 4011 Weight (lbs) 63.957 kg 70.08 kg Intake: Intake, IV Amount 008.864 7523 D5-0.45NS 1,000 ml @ 50 762.454 5731 mls/hr IV .Q20H [facility] Rx#: [id number] cefTRIAXone 1 gm In 50 Sodium Chloride 0.9% 50 ml @ 100 mls/hr IV Q24HR [facility] Rx#:[id number] Tube Feeding 250 Other: # Voids 3 # Bowel Movements 1 Stool Characteristics Soft Brown Liquid Brown Weight Source Bedscale Bedscale Active Medications: Current Medications Acetaminophen (Tylenol) 650 mg PO Q4H PRN PRN Reason: Pain Or Fever above 101 Stop: 07/29/17 19:35 Albuterol Sulfate (Albuterol 2.5mg/3ml Neb Ud) 2.5 mg HHN Q2HRT PRN PRN Reason: Shortness of Breath or Wheeze Stop: 07/29/17 19:35 Docusate Sodium (Colace) 100 mg GT BID [facility] Stop: 07/30/17 08:59 Last Admin: 06/04/17 09:27 Dose: 100 mg Famotidine (Pepcid) 20 mg GT DAILY [facility] Stop: 07/30/17 08:59 Last Admin: 06/04/17 09:27 Dose: 20 mg Heparin Sodium (Porcine) (Heparin) 5,000 units SUBQ Q12HR [facility] Stop: 07/29/17 20:59 Last Admin: 06/04/17 09:28 Dose: 5,000 units Dextrose/Sodium Chloride (D5-0.45ns) 1,000 mls @ 50 mls/hr IV .Q20H [facility] Stop: 08/01/17 11:51 Last Admin: 06/04/17 03:44 Dose: 50 mls/hr Ceftriaxone Sodium 1 gm/ (Sodium Chloride) 50 mls @ 100 mls/hr IV Q24HR [facility] Stop: 08/02/17 11:59 Last Infusion: 06/04/17 06:22 Dose: Infused Ketoconazole (Nizoral) 10 ml TP DAILY [facility] Stop: 07/30/17 08:59 Last Admin: 06/04/17 09:27 Dose: 10 ml Levetiracetam (Keppra) 500 mg PO BID [facility] Stop: 07/30/17 08:59 Last Admin: 06/04/17 09:27 Dose: 500 mg Magnesium Hydroxide (Milk Of Magnesia) 30 ml GT HS PRN PRN Reason: Constipation Stop: 07/29/17 19:30 Nitroglycerin (Nitrostat) 0.4 mg SL Q5MIN PRN PRN Reason: CHEST PAIN X3 Stop: 07/29/17 19:30 Ondansetron HCl (Zofran) 4 mg IV Q8H PRN PRN Reason: Nausea / Vomiting Stop: 07/29/17 19:35 Zolpidem Tartrate (Ambien) 10 mg PO HS PRN PRN Reason: Insomnia Stop: 07/29/17 19:35 Last Admin: 06/03/17 23:19 Dose: 10 mg General: No acute distress HEENT: Atraumatic Cardiovascular: Regular rate Abdomen: Bowel sounds, Soft, Other (INTACT GT), no Tender, no Hepatomegaly, no Distended, no Rebound, no Mass, no Guarding Assessment/Plan - Problem List Patient Problems: All Active Problems GASTRIC FEEDING TUBE REPLACEMENT (Acute) - Assessment Assessment: # Dementia # Previous CVA # Cerebral palsy # Dysphagia with G tube # G tube malfunction G tube replaced at bedside on 06/01 with 16Fr tube, tolerating feeds at this time. Plan: - cont feeds at goal rate as paulina - flush G tube with 100cc water every 6 hours - check residuals, hold for > 100cc - G tube care GI encinas stable.
--- NOTE | 2017-06-05 22:09 | Discharge Summary ---
DATE OF DISCHARGE: 06/04/2017 CHIEF COMPLAINT: G-tube malfunction. FINAL DIAGNOSES: 1. Fever. 2. G-tube malfunction, status post replacement ____. 3. Hypertension. 4. Diabetes. 5. Hypokalemia. 6. Bedbound. 7. Functional paraplegia. HISTORY: This is a 32-year-old male with multiple medical problems including cerebral palsy, mental retardation, dysphagia with G-tube, apparently came off. The patient admitted further management. PHYSICAL EXAMINATION: VITAL SIGNS: Blood pressure 110/71, respirations 17, pulse 70, and temperature is 97.3. GENERAL: Middle-aged male, appears chronically ill. NECK: Supple. No mass. LUNGS: Equal breath sounds, few rhonchi. HEART: Regular rate and rhythm without appreciable murmurs. ABDOMEN: Soft, globular. EXTREMITIES: Positive excoriations. HOSPITAL COURSE: The patient was admitted to medical floor. The patient was referred to Dr. Emmie ESCALANTE. G-tube was placed. The patient did not spike a temperature. Blood culture and urine culture were sent. Condition of the patient is satisfactory. The patient was cleared for discharge for close followup DISPOSITION: Nursing facility. CONDITION ON DISCHARGE: Fair. OVERALL PROGNOSIS: Poor. DISCHARGE INSTRUCTIONS: The patient to continue current regimen. We will monitor the patient for diabetic condition. JOB# [id number]
== END 2017-06-04 15:30 | DRG 252 ==
LOC: ER 12:13 → MSI 13:49
PROVIDERS: ADMIT Internal Medicine; ATTEND Internal Medicine
PROC: 0D20XUZ Change Feeding Device in Upper Intestinal Tract, External Approach (ICD-10-PCS; principal; 2017-06-01)
DX: K94.23 Gastrostomy malfunction (principal); R53.2 Functional quadriplegia; F03.90 Unspecified dementia, unspecified severity, without behavioral disturbance, psychotic disturbance, mood disturbance, and anxiety; E87.1 Hypo-osmolality and hyponatremia; E11.9 Type 2 diabetes mellitus without complications; E78.5 Hyperlipidemia, unspecified; D64.9 Anemia, unspecified; G80.9 Cerebral palsy, unspecified; I10 Essential (primary) hypertension; Z86.73 Personal history of transient ischemic attack (TIA), and cerebral infarction without residual deficits; Z74.01 Bed confinement status; E87.6 Hypokalemia; Y83.8 Other surgical procedures as the cause of abnormal reaction of the patient, or of later complication, without mention of misadventure at the time of the procedure; Y92.89 Other specified places as the place of occurrence of the external cause
CPT/HCPCS: 36415-UA; 71045-TC; 80048-TC; 80053-TC; 81001-TC; 82150-TC; 83690-TC; 85025-TC; 85610-TC; 85730-TC; 87086-90; 94760; J0696; J1644; Z7610

== ENCOUNTER 2018-08-14 19:32 | Inpatient (IN) | payer MEDICAID ==
--- NOTE | 2018-08-14 19:54 | ED Physician Chart ---
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 hx cerebral palsy infarct seizures on keppra Allergies:: Allergies Allergy/AdvReac Type Severity Reaction Status Date / Time No Known Allergies Allergy Verified 04/02/16 18:54 Vitals:: Vital Signs - 8 hr 08/14/18 19:32 Temp 101.5 F HR 126 RR 20 BP 109/83 O2 Sat % 96 ED Review of Systems - Review of Systems General/Constitutional: Fever Skin: Skin lesions, Other (abscess ) Eyes: No loss of vision Neck: No neck pain Pulmonary: No SOB GI: No vomiting, No diarrhea Hematopoietic: No bruising Neurological: No syncope ED Past Medical History - Past Medical History Obtainable: No Family Medical History - Family Member Mother History Unknown: Yes ED Physical Exam - Physical Examination General/Constitutional: Awake Head: Atraumatic Eyes: Lids, conjuctiva normal Other Skin comments:: abscess cellulitis rt lateral hip Other Neck comments:: contractures of neck twisted to the left Respiratory: Nl effort/Exclusion Other Cardio Vascular comments:: sinus tachycardia GI: No hernia Other GI comments:: gtube in place Other Extremities comments:: contractures and clawing toes and lt upgoing big toe Other Neuro/Psych comments:: contractures extremities ED Septic Shock - . Is Septic Shock (SBP<90, OR Lactate>4 mmol\L) present?: No - <6hrs of presentation: Vital Signs: Vital Signs - 8 hr 08/14/18 19:32 Temp 101.5 F HR 126 RR 20 BP 109/83 O2 Sat % 96 ED Reassessment (Disposition) - Reassessment Reassessment:: cellulitis skin abscess rt hip area - Patient Disposition Admitted to:: Med/Surg Condition at Disposition:: Stable
[2018-08-14] MEDS ORDERED: cefTRIAXone 2 GM in Sodium Chloride 0.9% 100 ML IV ONE (20:05)
[2018-08-14 20:17] LABS: HEMATOCRIT 52.6 % (41.0-60); HEMOGLOBIN 17.9 gm/dL (12-16); MEAN CELL VOLUME 91.6 fl (80-99); MEAN CORPUSCULAR HEMOGLOBIN 31.3 pg (26.0-30.0); MEAN CORPUSCULAR HGB CONC 34.1 pg (28.0-36.0); PLATELET COUNT 75 Th/cmm (150-400); RED BLOOD COUNT 5.74 Mil/cmm (4.30-5.70); RED CELL DISTRIBUTION WIDTH 11.6 % (11.5-20.0)
[2018-08-14 20:26] LABS: WHITE BLOOD COUNT 16.3 Th/cmm (4.8-10.8)
[2018-08-14] MEDS ORDERED: Sodium Chloride 0.9% 1,000 ML IV ONE ×3 (20:27→21:40)
[2018-08-14 20:32] LABS: ALB/GLOB RATIO 0.3 (1.0-1.8); ALBUMIN < 1.5 gm/dL (4.2-5.5); ALKALINE PHOSPHATASE 51 U/L (34-104); ANION GAP 11.1 (7.0-16.0); BILIRUBIN,TOTAL 0.6 mg/dL (0.3-1.0); BUN - UREA NITROGEN 18 mg/dL (7-25); CALCIUM SERUM 9.4 mg/dL (8.6-10.3); CARBON DIOXIDE 26.9 mEq/L (21.0-31.0); CHLORIDE 97 mEq/L (98-107); CREATININE - SERUM 0.6 mg/dL (0.7-1.3); GFR AFRICAN-AMERICAN > 60.0 ml/min (>90); GFR NON AFRICAN-AMERICAN > 60.0 ml/min; GLUCOSE 120 mg/dL (70-105); SGOT 22 U/L (13-39); SGPT/ALT < 3 U/L (7-52); SODIUM SERUM 131 mEq/L (136-145); TOTAL PROTEIN,SERUM 7.4 gm/dL (6.0-8.3)
[2018-08-14 20:39] LABS: BAND NEUTROPHILE 4 % (0-10); LYMPHOCYTE 8 % (20-50); MONOCYTE 9 % (2-10); NEUTROPHILS 79 % (40-80); PLATELET ESTIMATE DECREASED PLATELETS (NORMAL)
[2018-08-14] MEDS ORDERED: [UNRECOGNIZED DRUG - OTHER] IV PRN (23:08)
[2018-08-14] MEDS ORDERED: DEXTROSE 10% IV PRN (23:08)
[2018-08-14] MEDS ORDERED: Magnesium Hydroxide (MOM) 30 mL UDC GT PRN (23:08)
[2018-08-14] MEDS ORDERED: Ipratropium Neb 0.5 mg/2.5 mL UD HHN PRN (23:11)
[2018-08-14] MEDS ORDERED: Albuterol Nebulizer 2.5mg/3mL HHN PRN (23:11)
[2018-08-14] MEDS: Sodium Chloride 0.9% 1,000 ML IV SCH (23:53)
[2018-08-15] MEDS: Docusate Sodium 100 mg/10 mL UD GT SCH ×2 (08:31→16:15)
--- NOTE | 2018-08-15 09:22 | Diagnostic Imaging Report ---
Portable chest x-ray Time: 2018 History: Evidence of breath Allowing for portable technique the heart size is normal. No focal pulmonary parenchymal processes. No hilar or mediastinal abnormalities. Mild right basilar atelectasis. Impression: No acute abnormalities.
--- NOTE | 2018-08-15 09:23 | Diagnostic Imaging Report ---
Portable HISTORY: Abscess. Findings: Portable frontal examination of pelvis demonstrates no evidence of fracture dislocation. The sacroiliac joints, pubic symphysis and hip joints are intact. IMPRESSION: Normal examination of the pelvis.
--- NOTE | 2018-08-15 17:09 | History & Physical ---
ADMIT DATE: 08/15/2018 CHIEF COMPLAINT: Fever, infected right hip infection. HISTORY OF PRESENT ILLNESS: This is a 33-year-old male with history of cerebral palsy, chronic respiratory failure, previous trach, diabetes, ____ dysphagia, seizure, admitted from nursing facility secondary to a wound on the right hip with discharge. The patient's blood pressure has been on the low side. The patient has had fever. The patient is not verbal, not interactive. PAST MEDICAL HISTORY: As mentioned in the history of present illness. PAST SURGICAL HISTORY: Status post trach and PEG. ALLERGIES: No known drug allergies. MEDICATIONS: Tylenol, aspirin, Colace, insulin, famotidine, Keppra, magnesium and nitroglycerin. FAMILY HISTORY: Noncontributory. SOCIAL HISTORY: The patient is a [facility] patient, requiring 24-hour total care. REVIEW OF SYSTEMS: This is limited secondary to the patient's comatose state, able to give limited due system at a later date by talking to family members. ____ mother at [phone], also I called her on [phone]. We will also try to get information from nursing staff at [facility], and also from ____, who normally follows the patient. PHYSICAL EXAMINATION: VITAL SIGNS: Blood pressure 92/50, respiration 18, pulse 107, temperature 100.4. GENERAL: Elderly A young male who appears chronically ill. NECK: Supple. Trach site. He was decannulated. LUNGS: Equal breath sounds, few rhonchi. HEART: Regular rate and rhythm. Systolic without appreciable murmur. ABDOMEN: Soft, globular. EXTREMITIES: Positive excoriation. Positive wound the right hip with discharge, erythema. LABORATORY DATA: WBC 16, hemoglobin 17, platelets 75. Sodium 131, potassium 4.0, BUN 18, creatinine 0.60, ____ 20. ASSESSMENT AND PLAN: Fever, sepsis, hypotension, right hip abscess, leukocytosis, diabetes, status post G-tube, hypertension, hypercholesterolemia, cerebral palsy, hyponatremia, seizure ____ continue the patient on IV antibiotic on vancomycin and Zosyn. We will follow the patient's culture, including blood culture and wound culture. We will advance his drain. Continue IV hydration, continue with ____. JOB# [id number]
[2018-08-15] MEDS ORDERED: Albumin 25% 25gm/100mL 25 GM/100 ML BTL IV ONE ×2 (18:05→18:06)
[2018-08-15 18:06] LABS: URINE SOURCE CLEAN C
[2018-08-15 18:11] LABS: URINE BILIRUBIN NEGATIVE (NEGATIVE); URINE BLOOD NEGATIVE (NEGATIVE); URINE GLUCOSE (UA) NEGATIVE (NEGATIVE); URINE KETONE 40 mg/dL (NEGATIVE); URINE LEUKOCYTE ESTERASE NEGATIVE (NEGATIVE); URINE NITRATE NEGATIVE (NEGATIVE); URINE PH 5.5 (4.6 - 8.0); URINE PROTEIN NEGATIVE (NEGATIVE); URINE UROBILINOGEN 0.2 E.U./dL (0.2 - 1.0)
[2018-08-15 18:13] LABS: URINE CLARITY CLEAR (CLEAR); URINE COLOR YELLOW; URINE MICROSCOPIC INDICATED? YES
[2018-08-15 18:21] LABS: URINE BACTERIA FEW /hpf (NONE SEEN); URINE EPITHELIAL CELLS FEW /lpf (FEW); URINE RBC 0-2 /hpf (0-5); URINE WBC 0-2 /hpf (0-5)
[2018-08-16] MEDS: Sodium Chloride 0.9% 1,000 ML IV SCH (01:20)
[2018-08-16 05:24] LABS: % BASOPHILS 1.7 % (0.0-2.0); % EOSINOPHILS 0.8 % (0.0-5.0); % LYMPHOCYTES 10.2 % (20.0-50.0); % MONOCYTES 10.9 % (2.0-10.0); % NEUTROPHILS 76.4 % (40.0-80.0); BASOPHILE ABSOLUTE 0.1 Th/cumm (0-0.2); EOSINOPHILE ABSOLUTE 0.1 Th/cmm (0.1-0.4); HEMATOCRIT 43.6 % (41.0-60); HEMOGLOBIN 14.7 gm/dL (12-16); LYMPHOCYTE ABSOLUTE 0.8 Th/cmm (1.5-3.0); MEAN CELL VOLUME 91.5 fl (80-99); MEAN CORPUSCULAR HEMOGLOBIN 30.9 pg (26.0-30.0); MEAN CORPUSCULAR HGB CONC 33.8 pg (28.0-36.0); MONOCYTE ABSOLUTE 0.8 Th/cmm (0.3-1.0); NEUTROPHILE ABSOLUTE 5.8 Th/cmm (1.8-8.0); PLATELET COUNT 118 Th/cmm (150-400); RED BLOOD COUNT 4.77 Mil/cmm (4.30-5.70); WHITE BLOOD COUNT 7.6 Th/cmm (4.8-10.8)
[2018-08-16 05:36] LABS: ANION GAP 9.2 (7.0-16.0); BUN - UREA NITROGEN 6 mg/dL (7-25); CALCIUM SERUM 8.5 mg/dL (8.6-10.3); CHLORIDE 103 mEq/L (98-107); CREATININE - SERUM 0.5 mg/dL (0.7-1.3); GFR AFRICAN-AMERICAN > 60.0 ml/min (>90); GFR NON AFRICAN-AMERICAN > 60.0 ml/min; GLUCOSE 118 mg/dL (70-105); POTASSIUM SERUM 3.2 mEq/L (3.5-5.1); SODIUM SERUM 135 mEq/L (136-145)
[2018-08-16 05:37] LABS: VANCOMYCIN TROUGH 10.5 ug/mL (5-10)
[2018-08-16] MEDS: Docusate Sodium 100 mg/10 mL UD GT SCH ×2 (09:26→16:40)
[2018-08-16] MEDS ORDERED: Potassium Chloride 20 mEq ER Tab PO ONE (13:23)
--- NOTE | 2018-08-16 13:26 | Internal Medicine Prog Note ---
Internal Medicine Subjective - Subjective Patient seen and examined:: with staff, chart reviewed Patient is:: asleep, non-verbal, non-interactive, eyes closed, agitated, congested Patient Complaints of:: congestion Per staff patient has:: no adverse event, no episodes of fall, tolerating meds Internal Medicine Objective - Results Result Diagrams: 08/16/18 05:06 08/16/18 05:06 Recent Labs: Laboratory Last Values WBC 7.6 Th/cmm (4.8-10.8) 08/16/18 05:06 RBC 4.77 Mil/cmm (4.30-5.70) 08/16/18 05:06 Hgb 14.7 gm/dL (12-16) 08/16/18 05:06 Hct 43.6 % (41.0-60) 08/16/18 05:06 MCV 91.5 fl (80-99) 08/16/18 05:06 MCH 30.9 pg (26.0-30.0) H 08/16/18 05:06 MCHC Differential 33.8 pg (28.0-36.0) 08/16/18 05:06 RDW 12.0 % (11.5-20.0) 08/16/18 05:06 Plt Count 118 Th/cmm (150-400) L 08/16/18 05:06 MPV 11.1 fl 08/16/18 05:06 Add Manual Diff YES 08/14/18 20:00 Neutrophils % 76.4 % (40.0-80.0) 08/16/18 05:06 Band Neutrophils % 4 % (0-10) 08/14/18 20:00 Lymphocytes % 10.2 % (20.0-50.0) L 08/16/18 05:06 Monocytes % 10.9 % (2.0-10.0) H 08/16/18 05:06 Eosinophils % 0.8 % (0.0-5.0) 08/16/18 05:06 Basophils % 1.7 % (0.0-2.0) 08/16/18 05:06 Neutrophils (Manual) 79 % (40-80) 08/14/18 20:00 Lymphocytes 8 % (20-50) L 08/14/18 20:00 Monocytes 9 % (2-10) 08/14/18 20:00 Platelet Estimate DECREASED PLATELETS (NORMAL) 08/14/18 20:00 Sodium 135 mEq/L (136-145) L 08/16/18 05:06 Potassium 3.2 mEq/L (3.5-5.1) L 08/16/18 05:06 Chloride 103 mEq/L (98-107) 08/16/18 05:06 Carbon Dioxide 26.0 mEq/L (21.0-31.0) 08/16/18 05:06 Anion Gap 9.2 (7.0-16.0) 08/16/18 05:06 BUN 6 mg/dL (7-25) L 08/16/18 05:06 Creatinine 0.5 mg/dL (0.7-1.3) L 08/16/18 05:06 Est GFR ( Amer) > 60.0 ml/min (>90) 08/16/18 05:06 Est GFR (Non-Af Amer) > 60.0 ml/min 08/16/18 05:06 BUN/Creatinine Ratio 12.0 08/16/18 05:06 Glucose 118 mg/dL (70-105) H 08/16/18 05:06 POC Glucose 96 MG/DL (70 - 105) 08/14/18 22:06 Whole Bld Lactic Acid 1.34 mmol/L (0.60-1.99) 08/14/18 20:00 Calcium 8.5 mg/dL (8.6-10.3) L 08/16/18 05:06 Total Bilirubin 0.6 mg/dL (0.3-1.0) 08/14/18 20:00 AST 22 U/L (13-39) 08/14/18 20:00 ALT < 3 U/L (7-52) L 08/14/18 20:00 Alkaline Phosphatase 51 U/L (34-104) 08/14/18 20:00 Troponin I 0.02 ng/mL (0.01-0.05) 08/14/18 20:00 B-Natriuretic Peptide 128.0 pg/mL (5.0-100.0) H 08/16/18 05:06 Total Protein 7.4 gm/dL (6.0-8.3) 08/14/18 20:00 Albumin < 1.5 gm/dL (4.2-5.5) L 08/14/18 20:00 Globulin 5.9 gm/dL 08/14/18 20:00 Albumin/Globulin Ratio 0.3 (1.0-1.8) L 08/14/18 20:00 TSH 1.42 uIU/ml (0.34-5.60) 08/16/18 05:06 Urine Source CLEAN C 08/14/18 17:40 Urine Color YELLOW 08/14/18 17:40 Urine Clarity CLEAR (CLEAR) 08/14/18 17:40 Urine pH 5.5 (4.6 - 8.0) 08/14/18 17:40 Ur Specific [place] 1.015 (1.005-1.030) 08/14/18 17:40 Urine Protein NEGATIVE mg/dL (NEGATIVE) 08/14/18 17:40 Urine Glucose (UA) NEGATIVE mg/dL (NEGATIVE) 08/14/18 17:40 Urine Ketones 40 mg/dL (NEGATIVE) H 08/14/18 17:40 Urine Blood NEGATIVE (NEGATIVE) 08/14/18 17:40 Urine Nitrate NEGATIVE (NEGATIVE) 08/14/18 17:40 Urine Bilirubin NEGATIVE (NEGATIVE) 08/14/18 17:40 Urine Urobilinogen 0.2 E.U./dL (0.2 - 1.0) 08/14/18 17:40 Ur Leukocyte Esterase NEGATIVE (NEGATIVE) 08/14/18 17:40 Urine RBC 0-2 /hpf (0-5) H 08/14/18 17:40 Urine WBC 0-2 /hpf (0-5) 08/14/18 17:40 Ur Epithelial Cells FEW /lpf (FEW) 08/14/18 17:40 Urine Bacteria FEW /hpf (NONE SEEN) 08/14/18 17:40 Urine Mucus FEW /lpf (FEW) 08/14/18 17:40 Vancomycin Trough 10.5 ug/mL (5-10) H 08/16/18 05:06 - Physical Exam Vitals and I&O: Vital Signs Temp 99.7 F 08/16/18 12:00 Pulse 107 08/16/18 12:00 Resp 20 08/16/18 12:00 BP 107/57 08/16/18 12:00 Pulse Ox 97 08/16/18 09:50 Intake & Output 08/15/18 08/16/1819 18:59 06:59 18:59 Intake Total 1550 100 Balance 1550 100 Weight (lbs) 60.781 kg 60.781 kg Intake: Intake, IV Amount 1350 100 Piperacillin Sodium/ 100 100 Tazobact 4.5 gm In Sodium Chloride 0.9% 100 ml @ 100 mls/hr IV Q8HR [facility] Rx #:[id number] Sodium Chloride 0.9% 1, 1000 000 ml @ 80 mls/hr IV . [id number] [facility] Rx#:[id number] Vancomycin HCl 1 gm In 250 Sodium Chloride 0.9% 250 ml @ 165 mls/hr IV Q12H [facility] Rx#:[id number] Albumin 100 Other 100 Other: # Voids 3 # Bowel Movements 0 Stool Characteristics Hard Hard Brown Brown Green Green Weight Source Bedscale Bedscale Active Medications: Current Medications Acetaminophen (Tylenol) 650 mg PO Q4H PRN PRN Reason: Pain Or Fever above 101 Stop: 10/13/18 23:07 Last Admin: 08/15/18 20:42 Dose: 650 mg Albuterol Sulfate (Albuterol 2.5mg/3ml Neb Ud) 2.5 mg HHN Q2HRT PRN PRN Reason: Shortness of Breath or Wheeze Stop: 10/13/18 23:10 Docusate Sodium (Colace) 100 mg GT BID [facility] Stop: 10/14/18 08:59 Last Admin: 08/16/18 09:26 Dose: 100 mg Famotidine (Pepcid) 20 mg GT DAILY [facility] Stop: 10/14/18 08:59 Last Admin: 08/16/18 09:26 Dose: 20 mg Sodium Chloride (Nacl 0.9%) 1,000 mls @ 80 mls/hr IV .[id number] [facility] Stop: 10/13/18 23:14 Last Admin: 08/16/18 01:20 Dose: 80 mls/hr Piperacillin Sod/Tazobactam (Sod 4.5 gm/ Sodium Chloride) 100 mls @ 100 mls/hr IV Q8HR [facility] Stop: 10/14/18 04:59 Last Admin: 08/16/18 05:25 Dose: 100 mls/hr Vancomycin HCl 750 mg/ Sodium (Chloride) 250 mls @ 250 mls/hr IV Q8H [facility] Stop: 10/15/18 09:59 Last Admin: 08/16/18 09:34 Dose: 250 mls/hr Ipratropium [place] (Atrovent Neb 0.5mg/2.5ml) 0.5 mg HHN Q2HRT PRN PRN Reason: Shortness of Breath or Wheeze Stop: 10/13/18 23:10 Levetiracetam (Keppra) 500 mg PO BID [facility] Stop: 10/14/18 08:59 Last Admin: 08/16/18 09:27 Dose: 500 mg Lorazepam (Ativan) 1 mg IV Q4H PRN; Protocol PRN Reason: Seizure Stop: 10/13/18 23:10 Magnesium Hydroxide (Milk Of Magnesia) 30 ml GT HS PRN PRN Reason: Constipation Stop: 10/13/18 23:07 Midodrine (Proamatine) 5 mg PO TID [facility] Stop: 10/14/18 13:59 Last Admin: 08/16/18 09:27 Dose: 5 mg Miscellaneous (Dextrose 10% [Dextrose 10%]) 250 ml IV PRN PRN PRN Reason: IF GLUCAGON INEFFECTIVE Miscellaneous (Vancomycin Iv Per Pharmacy) 1 ea MC PRN [facility] Stop: 10/13/18 23:14 Nitroglycerin (Nitrostat) 0.4 mg SL Q5MIN PRN PRN Reason: CHEST PAIN X3 Stop: 10/13/18 23:07 Ondansetron HCl (Zofran) 4 mg IV Q8H PRN PRN Reason: Nausea / Vomiting Stop: 10/13/18 23:10 Potassium Chloride (Klor-Con) 40 meq PO X1 ONE Stop: 08/16/18 13:24 Wound Care/Dressing Products (Silvasorb) 1 appl TP DAILY [facility] Stop: 10/16/18 08:59 General: congested, demented, vegetative state, bilateral temporal wasting, appears older HEENT: NC/AT, PERRLA Neck: Supple Lungs: congested, rales Cardiovascular: RRR, Normal S1, Normal S2 Abdomen: soft, thin, +GT, positive bowel sound Extremities: contracture, ulcers stage 2 Neurological: lethargic - Procedures Procedures: Procedures Procedure Code Date CHANGE FEEDING DEVICE IN UP INTEST TRACT, QUALITY ANALYST APPROACH [id number] 05/30/17 Internal Medicine Assmt/Plan - Assessment Assessment: ASSESSMENT AND PLAN: Fever, sepsis, hypotension, right hip abscess, leukocytosis, diabetes, status post G-tube, hypertension, hypercholesterolemia, cerebral palsy, hyponatremia, seizure - Plan Plan: PLAN: continue the patient on IV antibiotic on vancomycin and Zosyn. We will follow the patient's culture, including blood culture and wound culture. We will advance his drain. Continue IV hydration, will refer to sx Nutritional Asmnt/Malnutr-PDOC - Dietary Evaluation Malnutrition Findings (Please click <Entered> for more info): Nutritional Asmnt/Malnutrition Start: 08/15/18 13: 57 Text: Status: Active Freq: Protocol: Document 08/15/18 13:58 GREG (Rec: 08/15/18 14:02 GREG [email or web address]) Nutritional Asmnt/Malnutrition Patient General Information Nutritional Screening High Risk Diagnosis SEPSIS, RT HIP ABCESS Pertinent Medical Hx/Surgical Hx QUADRAPLEGIC, CP INFARCT SEIZURES Subjective Information HIGH RISK, CONSULT: ABENA Melgar PT IS A 33 YEAR OLD MALE ADMITTED ON 08/14 C/O RT HIP ABCESS. PT IS QUADRAPLEGIC. PT HAS POSITIVE SCREEN FOR SEVERE SEPSIS OR SEPTIC SHOCK. HT: 57 WT: 134 LB (60.91KG) BMI: 20.99 (NORMAL) GI: WNL, SOFT, LARGE BM: NOT NOTED I/O: 200/3 (+197) SKIN: PALE, WARM, MOIST, ELASTIC WOUNDS: RT HIP INFECTED ABCESS ABENA: 11 DIET ORDER: NUTREN 2.0 4 CARTONS Q4HRS(2VS-2ZA-4KD-9PM) ESTIMATED ENERGY NEEDS: ( QUADRIPLEGIA, SEPSIS, CBW) 1759-1862 KCALS (30-35 KCALS/ KG) 67-80 G PRO (1.2-2.0 G/KG) 0790-3519 ML (3-40 ML/KG) CONSIDER THE FOLLOWING: TWOCAL HN @40ML/HR X 24HRS THIS WILL PROVIDE 1920 KCALS, 80G PRO, AND 672ML FREE WATER TO MEET AN ESTIMATED 100% KCAL AND 100% PRO NEEDS TO PROMOTE WOUND HEALING. Current Diet Order/ Nutrition Support NUTREN 2.0 4 CARTONS Q4HRS(9AM -1PM-5PM-9PM) Pertinent Medications ALBUTEROL (PRN), COLACE, PEPCID, MOM (PRN), NITROSTAT, ZOFRAN (PRN), NACL 0.9% 1000ML @80ML/HR IV Q12H 30M [facility] Pertinent Labs 08/14: WBC 16.3, NA 131, CR 0.6, GLUC 120, ALT <3, ALB <1.5 Nutritional Hx/Data Height 1.7 m Height (Calculated Centimeters) 170.2 Current Weight (lbs) 60.781 kg Weight (Calculated Kilograms) 60.8 Weight (Calculated Grams) 08466.4 Ethel Body Weight 133 % Ethel Body Weight 101 Body Mass Index (BMI) 20.9 Weight Status Approriate GI Symptoms Last BM NOT NOTED Usual diet at home NUTREN 2.0 4 CARTONS Q4HRS(9AM -1PM-5PM-9PM) Skin Integrity/Comment: RT HIP INFECTED ABCESS Estimated Nutritional Goals BEE in Kcals: Using Current wt Calories/Kcals/Kg 30-35 Kcals Calculated 9519-2488 Protein: Using Current wt Protein g/k.2-2.0 Protein Calculated 67-80 Fluid: ml 2077-4040 ML (3-40 ML/KG) Nutritional Problem 1. Problem Problem INCREASED KCAL AND PROTEIN NEEDS Etiology R/T INCREASED METABOLISM Signs/Symptoms: AEB SEPSIS AND RT HIP ABCESS Malnutrition Related to Morbid Obesity Malnutrition related to morbid obesity No Intervention/Recommendation Comments CONSIDER TF: TWOCAL HN @40ML/HR X 24HRS THIS WILL PROVIDE 1920 KCALS, 80G PRO, AND 672ML FREE WATER TO MEET AN ESTIMATED 100% KCAL AND 100% PRO NEEDS TO PROMOTE WOUND HEALING. Expected Outcomes/Goals Expected Outcomes/Goals 1. MONITOR ENTERAL FORMULA TOLERANCE. 2. MONITOR WT, NUTRITION RELATED LABS AND SKIN INTEGRITY. 3. F/U HIGH RISK IN 2-3 DAYS, 08/17-08/18
[2018-08-16] MEDS ORDERED: Probiotic Screen MC PRN (15:04)
[2018-08-16] MEDS ORDERED: Hydrocodone/APAP 10 mg/325 mg Tab GT PRN (16:02)
--- NOTE | 2018-08-16 16:26 | Consultation ---
Consult Note - Consult Note Service Date: 08/16/18 Referring Physician: Lamine Hinton Consult Note: PHYSICIAN Consultation Note: Date of Admission: 08/14/18 Purpose of Consultation: Chief Complaint: Patient is a 33-year-old male with history of cerebral palsy who was admitted to [facility] with discharge discharge from the right hip. Purulent discharge was noted and surgical evaluation was requested. History of Present Illness: Patient GUCCI ALEJANDRO was admitted to [facility] Telemetry with SEPSIS/ RIGHT HIP ABSCESS. Past Medical History: Cerebral palsy, chronic respiratory failure, diabetes, dysphagia, seizure. Status post G-tube placement Diagnoses SEPSIS, UNSPECIFIED ORGANISM (08/14/18) ELEVATED WHITE BLOOD CELL COUNT, UNSPECIFIED (08/14/18) TYPE 2 DIABETES MELLITUS WITHOUT COMPLICATIONS (08/14/18) HYPO-OSMOLALITY AND HYPONATREMIA (08/14/18) CEREBRAL PALSY, UNSPECIFIED (08/14/18) HYPOTENSION, UNSPECIFIED (08/14/18) CUTANEOUS ABSCESS OF RIGHT LOWER LIMB (08/14/18) WEAKNESS (08/14/18) UNSPECIFIED CONVULSIONS (08/14/18) GASTROSTOMY STATUS (08/14/18) Allergies Allergy/AdvReac Type Severity Reaction Status Date / Time No Known Allergies Allergy Verified 04/02/16 18:54 Vital Signs Temp 98.4 F 08/16/18 15:00 Pulse 95 08/16/18 15:00 Resp 18 08/16/18 15:00 BP 97/61 08/16/18 15:00 Pulse Ox 98 08/16/18 13:51 Intake & Output 08/15/18 08/16/18 08/16/18 18:59 06:59 18:59 Intake Total 1550 200 Balance 1550 200 Weight (lbs) 60.781 kg 60.781 kg Intake: Intake, IV Amount 1350 200 Piperacillin Sodium/ 100 200 Tazobact 4.5 gm In Sodium Chloride 0.9% 100 ml @ 100 mls/hr IV Q8HR [facility] Rx #:[id number] Sodium Chloride 0.9% 1, 1000 000 ml @ 80 mls/hr IV . [id number] [facility] Rx#:[id number] Vancomycin HCl 1 gm In 250 Sodium Chloride 0.9% 250 ml @ 165 mls/hr IV Q12H [facility] Rx#:[id number] Albumin 100 Other 100 Other: # Voids 3 # Bowel Movements 0 Stool Characteristics Hard Hard Brown Brown Green Green Weight Source [facility] Laboratory Results - last 24 hr 08/14/18 08/16/18 08/16/18 17:40 05:06 05:06 WBC 7.6 RBC 4.77 Hgb 14.7 Hct 43.6 MCV 91.5 MCH 30.9 H MCHC Differential 33.8 RDW 12.0 Plt Count 118 L MPV 11.1 Neutrophils % 76.4 Lymphocytes % 10.2 L Monocytes % 10.9 H Eosinophils % 0.8 Basophils % 1.7 Sodium Potassium Chloride Carbon Dioxide Anion Gap BUN Creatinine Est GFR ( Amer) Est GFR (Non-Af Amer) BUN/Creatinine Ratio Glucose Calcium B-Natriuretic Peptide 128.0 H TSH Urine Source CLEAN C Urine Color YELLOW Urine Clarity CLEAR Urine pH 5.5 Ur Specific [place] 1.015 Urine Protein NEGATIVE Urine Glucose (UA) NEGATIVE Urine Ketones 40 H Urine Blood NEGATIVE Urine Nitrate NEGATIVE Urine Bilirubin NEGATIVE Urine Urobilinogen 0.2 Ur Leukocyte Esterase NEGATIVE Urine RBC 0-2 H Urine WBC 0-2 Ur Epithelial Cells FEW Urine Bacteria FEW Urine Mucus FEW Vancomycin Trough 10.5 H 08/16/18 08/16/18 05:06 05:06 WBC RBC Hgb Hct MCV MCH MCHC Differential RDW Plt Count MPV Neutrophils % Lymphocytes % Monocytes % Eosinophils % Basophils % Sodium 135 L Potassium 3.2 L Chloride 103 Carbon Dioxide 26.0 Anion Gap 9.2 BUN 6 L Creatinine 0.5 L Est GFR ( Amer) > 60.0 Est GFR (Non-Af Amer) > 60.0 BUN/Creatinine Ratio 12.0 Glucose 118 H Calcium 8.5 L B-Natriuretic Peptide TSH 1.42 Urine Source Urine Color Urine Clarity Urine pH Ur Specific [place] Urine Protein Urine Glucose (UA) Urine Ketones Urine Blood Urine Nitrate Urine Bilirubin Urine Urobilinogen Ur Leukocyte Esterase Urine RBC Urine WBC Ur Epithelial Cells Urine Bacteria Urine Mucus Vancomycin Trough Home Medication Medication Instructions Recorded Type Acetaminophen [8 Hour] 650 mg GT Q6H PRN 04/02/16 History Aspirin [Aspirin EC] 325 mg GT DAILY PRN 04/02/16 History Insulin Human Regular [NovoLIN R*] 0 units SUBQ DAILY 04/02/16 History Nitroglycerin [Nitrostat*] 0.4 mg SL Q5MIN PRN #0 tab 04/05/16 Rx Dextrose 10% 250 ml IV PRN PRN 05/30/17 History Dextrose [Glucose Gel] 15 gm GT PRN PRN 05/30/17 History Docusate Sodium [Colace] 100 mg GT BID 05/30/17 History Famotidine [Pepcid] 20 mg GT DAILY 05/30/17 History Glucagon,Human Recombinant 1 mg IM PRN PRN 05/30/17 History [Glucagon Emergency Kit] Levetiracetam [Keppra] 500 mg GT BID 05/30/17 History Magnesium Hydroxide [Milk of 30 ml GT HS PRN 05/30/17 History Magnesia] Acetaminophen [Tylenol] 650 mg PO Q4H PRN tab 06/04/17 Rx Current Medications Generic Name Dose Route Start Last Admin Trade Name Freq PRN Reason Stop Dose Admin Acetaminophen 650 mg 08/14/18 23:08 08/15/18 20:42 Tylenol PO 10/13/18 23:07 650 mg Q4H PRN Administration Pain Or Fever above 101 Acetaminophen/Hydrocodone Bitart 1 tab 08/16/18 16:01 [employer] [place] 5mg/325mg GT 10/15/18 16:00 Q4H PRN mild pain Acetaminophen/Hydrocodone Bitart 1 tab 08/16/18 16:02 [employer] [place] 10 Mg/325 Mg GT 10/15/18 16:01 Q4H PRN mod-severe pain Albuterol Sulfate 2.5 mg 08/14/18 23:11 Albuterol 2.5mg/3ml Neb Ud HHN 10/13/18 23:10 Q2HRT PRN Shortness of Breath or Wheeze Docusate Sodium 100 mg 08/15/18 09:00 08/16/18 09:26 Colace GT 10/14/18 08:59 100 mg BID [facility] Administration Famotidine 20 mg 08/15/18 09:00 08/16/18 09:26 Pepcid GT 10/14/18 08:59 20 mg DAILY [facility] Administration Sodium Chloride 1,000 mls @ 80 mls/hr 08/14/18 23:15 08/16/18 01:20 Nacl 0.9% IV 10/13/18 23:14 80 mls/hr .[id number] [facility] Administration Piperacillin Sod/Tazobactam 100 mls @ 100 mls/hr 08/15/18 05:00 08/16/18 14: 03 Sod 4.5 gm/ Sodium Chloride IV 10/14/18 04:59 100 mls/hr Q8HR [facility] Administration Vancomycin HCl 750 mg/ Sodium 250 mls @ 250 mls/hr 08/16/18 10:00 08/16/18 09 :34 Chloride IV 10/15/18 09:59 250 mls/hr Q8H [facility] Administration Ipratropium [place] 0.5 mg 08/14/18 23:11 Atrovent Neb 0.5mg/2.5ml HHN 10/13/18 23:10 Q2HRT PRN Shortness of Breath or Wheeze Lactobacillus Rhamnosus 1 each 08/17/18 09:00 Culturelle 15b PO 10/16/18 08:59 DAILY [facility] Levetiracetam 500 mg 08/15/18 09:00 08/16/18 09:27 Keppra PO 10/14/18 08:59 500 mg BID [facility] Administration Lorazepam 1 mg 08/14/18 23:11 Ativan IV 10/13/18 23:10 Q4H PRN Seizure Protocol Magnesium Hydroxide 30 ml 08/14/18 23:08 Milk Of Magnesia GT 10/13/18 23:07 HS PRN Constipation Midodrine 5 mg 08/15/18 14:00 08/16/18 14:03 Proamatine PO 10/14/18 13:59 5 mg TID [facility] Administration Miscellaneous 250 ml 08/14/18 23:08 Dextrose 10% [Dextrose 10%] IV PRN PRN IF GLUCAGON INEFFECTIVE Miscellaneous 1 ea 08/14/18 23:15 Vancomycin Iv Per Pharmacy 10/13/18 23:14 PRN [facility] Miscellaneous 1 08/16/18 15:04 Probiotic Screen 10/15/18 15:03 PRN PRN PROTOCOL Nitroglycerin 0.4 mg 08/14/18 23:08 Nitrostat SL 10/13/18 23:07 Q5MIN PRN CHEST PAIN X3 Ondansetron HCl 4 mg 08/14/18 23:11 Zofran IV 10/13/18 23:10 Q8H PRN Nausea / Vomiting Wound Care/Dressing Products 1 appl 08/17/18 09:00 Silvasorb TP 09/04/19 08:59 DAILY [facility] Review of Systems: A 12 point ROS was reviewed with the pertinent positive and negatives noted in the HPI. Social History Noncontributory. Physical Exam: Right hip abscess noted draining purulence. There is surrounding cellulitis Assessment: Right hip abscess. Plan: 1. I&D of right hip abscess. The wound will be packed with betadine dressing x 48 hours. After which a wet-to-dry BID dressing change should be continued. Patient may be a candidate for application of a wound VAC dressing after wet-to-dry dressing BID 1-2 week. 2. Bone scan to rule out osteomyelitis. 3. ID consult for possible long-term intravenous antibiotic. 4. Continue intravenous antibiotic. 5. Pain medication when necessary. Signed, Luc Castanon [phone]
--- NOTE | 2018-08-16 16:30 | Operative Report ---
Operative Report - Surgery Date of Surgery:: August 16, 2018 Procedure:: I&D of right hip abscess Indication for procedure:: Right hip abscess Anesthesia:: Anesthesiologist: Anesthesia: Local anesthesia with 1% lidocaine Preoperative diagnosis:: Right hip abscess Postoperative diagnosis:: Right hip abscess Description of Procedure:: After administration of 20 mL 1% lidocaine in the right hip area,the incision was enlarged to approximately approximately 3 cm in size. Digital exploration of the localized wound evacuated 10 cc purulence. The wound was then irrigated with 20 mL of normal saline solution. Betadine dressing was packed into the wound and a dry dressing was then applied. Recommendations:: Keep Betadine dressing 48 hours. After 48 hours, the wound dressing should be changed to wet-to-dry twice a day 1-2 weeks. A local wound VAC can be considered once granulation tissue is observed
[2018-08-16] MEDS: Hydrocodone/APAP 5mg/325mg Tab GT PRN (16:40)
[2018-08-17] MEDS: Sodium Chloride 0.9% 1,000 ML IV SCH ×2 (01:24→18:52)
[2018-08-17 07:04] LABS: BUN - UREA NITROGEN 7 mg/dL (7-25); CALCIUM SERUM 8.6 mg/dL (8.6-10.3); CARBON DIOXIDE 27.4 mEq/L (21.0-31.0); CHLORIDE 105 mEq/L (98-107); CREATININE - SERUM 0.4 mg/dL (0.7-1.3); GFR AFRICAN-AMERICAN > 60.0 ml/min (>90); GFR NON AFRICAN-AMERICAN > 60.0 ml/min; GLUCOSE 111 mg/dL (70-105); MAGNESIUM 2.1 mg/dL (1.9-2.7); POTASSIUM SERUM 3.4 mEq/L (3.5-5.1); SODIUM SERUM 139 mEq/L (136-145)
[2018-08-17] MEDS ORDERED: Potassium Chloride Elixir 20 mEq /15 mL UDC GT ONE (08:49)
[2018-08-17] MEDS: Lactobacillus Rhamnosus GG 15 Billion CFU CAP.SPRINK PO SCH (09:44)
[2018-08-17] MEDS: Docusate Sodium 100 mg/10 mL UD GT SCH ×2 (09:44→17:19)
--- NOTE | 2018-08-17 09:45 | Diagnostic Imaging Report ---
Exam: Three-phase bone scan HISTORY: Right hip abscess Findings: After administration of 25.4 mCi of technetium 99 MDP examination of the left hip joints with carried out. The study demonstrates increased uptake of the radiopharmaceutical right femoral head on delayed views of the pelvis. The findings might represent inflammatory changes clinical correlation or MRI examination of the right hip joint by the helpful. Osteomyelitis cannot be excluded. The remaining examination is intact. IMPRESSION: Delayed increased accumulation of the radiopharmaceutical in the right femoral head extending in the neck of the right femur. This might represent inflammatory changes, osteomyelitis cannot be excluded. MRI examination might be helpful.
[2018-08-17] MEDS: Silver Antimicrobial Wound Gel 0.25 oz Tube TP SCH ×2 (09:46→15:48)
--- NOTE | 2018-08-17 11:29 | Internal Medicine Prog Note ---
Internal Medicine Subjective - Subjective Patient seen and examined:: with staff, chart reviewed Patient is:: asleep, non-verbal, non-interactive, eyes closed, agitated, congested Patient Complaints of:: congestion Per staff patient has:: no adverse event, no episodes of fall, tolerating meds Internal Medicine Objective - Results Result Diagrams: 08/16/18 05:06 08/17/18 05:35 Recent Labs: Laboratory Last Values WBC 7.6 Th/cmm (4.8-10.8) 08/16/18 05:06 RBC 4.77 Mil/cmm (4.30-5.70) 08/16/18 05:06 Hgb 14.7 gm/dL (12-16) 08/16/18 05:06 Hct 43.6 % (41.0-60) 08/16/18 05:06 MCV 91.5 fl (80-99) 08/16/18 05:06 MCH 30.9 pg (26.0-30.0) H 08/16/18 05:06 MCHC Differential 33.8 pg (28.0-36.0) 08/16/18 05:06 RDW 12.0 % (11.5-20.0) 08/16/18 05:06 Plt Count 118 Th/cmm (150-400) L 08/16/18 05:06 MPV 11.1 fl 08/16/18 05:06 Add Manual Diff YES 08/14/18 20:00 Neutrophils % 76.4 % (40.0-80.0) 08/16/18 05:06 Band Neutrophils % 4 % (0-10) 08/14/18 20:00 Lymphocytes % 10.2 % (20.0-50.0) L 08/16/18 05:06 Monocytes % 10.9 % (2.0-10.0) H 08/16/18 05:06 Eosinophils % 0.8 % (0.0-5.0) 08/16/18 05:06 Basophils % 1.7 % (0.0-2.0) 08/16/18 05:06 Neutrophils (Manual) 79 % (40-80) 08/14/18 20:00 Lymphocytes 8 % (20-50) L 08/14/18 20:00 Monocytes 9 % (2-10) 08/14/18 20:00 Platelet Estimate DECREASED PLATELETS (NORMAL) 08/14/18 20:00 Sodium 139 mEq/L (136-145) 08/17/18 05:35 Potassium 3.4 mEq/L (3.5-5.1) L 08/17/18 05:35 Chloride 105 mEq/L (98-107) 08/17/18 05:35 Carbon Dioxide 27.4 mEq/L (21.0-31.0) 08/17/18 05:35 Anion Gap 10.0 (7.0-16.0) 08/17/18 05:35 BUN 7 mg/dL (7-25) 08/17/18 05:35 Creatinine 0.4 mg/dL (0.7-1.3) L 08/17/18 05:35 Est GFR ( Amer) > 60.0 ml/min (>90) 08/17/18 05:35 Est GFR (Non-Af Amer) > 60.0 ml/min 08/17/18 05:35 BUN/Creatinine Ratio 17.5 08/17/18 05:35 Glucose 111 mg/dL (70-105) H 08/17/18 05:35 POC Glucose 96 MG/DL (70 - 105) 08/14/18 22:06 Whole Bld Lactic Acid 1.34 mmol/L (0.60-1.99) 08/14/18 20:00 Calcium 8.6 mg/dL (8.6-10.3) 08/17/18 05:35 Magnesium 2.1 mg/dL (1.9-2.7) 08/17/18 05:35 Total Bilirubin 0.6 mg/dL (0.3-1.0) 08/14/18 20:00 AST 22 U/L (13-39) 08/14/18 20:00 ALT < 3 U/L (7-52) L 08/14/18 20:00 Alkaline Phosphatase 51 U/L (34-104) 08/14/18 20:00 Troponin I 0.02 ng/mL (0.01-0.05) 08/14/18 20:00 B-Natriuretic Peptide 128.0 pg/mL (5.0-100.0) H 08/16/18 05:06 Total Protein 7.4 gm/dL (6.0-8.3) 08/14/18 20:00 Albumin < 1.5 gm/dL (4.2-5.5) L 08/14/18 20:00 Globulin 5.9 gm/dL 08/14/18 20:00 Albumin/Globulin Ratio 0.3 (1.0-1.8) L 08/14/18 20:00 TSH 1.42 uIU/ml (0.34-5.60) 08/16/18 05:06 Urine Source CLEAN C 08/14/18 17:40 Urine Color YELLOW 08/14/18 17:40 Urine Clarity CLEAR (CLEAR) 08/14/18 17:40 Urine pH 5.5 (4.6 - 8.0) 08/14/18 17:40 Ur Specific [place] 1.015 (1.005-1.030) 08/14/18 17:40 Urine Protein NEGATIVE mg/dL (NEGATIVE) 08/14/18 17:40 Urine Glucose (UA) NEGATIVE mg/dL (NEGATIVE) 08/14/18 17:40 Urine Ketones 40 mg/dL (NEGATIVE) H 08/14/18 17:40 Urine Blood NEGATIVE (NEGATIVE) 08/14/18 17:40 Urine Nitrate NEGATIVE (NEGATIVE) 08/14/18 17:40 Urine Bilirubin NEGATIVE (NEGATIVE) 08/14/18 17:40 Urine Urobilinogen 0.2 E.U./dL (0.2 - 1.0) 08/14/18 17:40 Ur Leukocyte Esterase NEGATIVE (NEGATIVE) 08/14/18 17:40 Urine RBC 0-2 /hpf (0-5) H 08/14/18 17:40 Urine WBC 0-2 /hpf (0-5) 08/14/18 17:40 Ur Epithelial Cells FEW /lpf (FEW) 08/14/18 17:40 Urine Bacteria FEW /hpf (NONE SEEN) 08/14/18 17:40 Urine Mucus FEW /lpf (FEW) 08/14/18 17:40 Vancomycin Trough 6.0 ug/mL (5-10) 08/17/18 09:10 - Physical Exam Vitals and I&O: Vital Signs Temp 97.8 F 08/17/18 08:00 Pulse 80 08/17/18 08:00 Resp 18 08/17/18 11:00 BP 97/62 08/17/18 08:00 Pulse Ox 97 08/17/18 08:00 Intake & Output 08/16/18 08/17/18 08/17/18 18:59 06:59 18:59 Intake Total 2380 1110 Balance 2380 1110 Weight (lbs) 60.781 kg 60.781 kg Intake: Intake, IV Amount 1600 450 Piperacillin Sodium/ 100 200 Tazobact 4.5 gm In Sodium Chloride 0.9% 100 ml @ 100 mls/hr IV Q8HR [facility] Rx #:[id number] Sodium Chloride 0.9% 1, 1000 000 ml @ 80 mls/hr IV . [id number] [facility] Rx#:[id number] Vancomycin HCl 750 mg In 500 250 Sodium Chloride 0.9% 250 ml @ 250 mls/hr IV Q8H [facility] Rx#:[id number] Tube Feeding 480 TPN/PPN 480 Other 300 180 Other: # Voids 3 3 # Bowel Movements 0 1 Stool Characteristics Hard Brown Green Weight Source Bedscale Bedscale Active Medications: Current Medications Acetaminophen (Tylenol) 650 mg PO Q4H PRN PRN Reason: Pain Or Fever above 101 Stop: 10/13/18 23:07 Last Admin: 08/15/18 20:42 Dose: 650 mg Acetaminophen/Hydrocodone Bitart ([place] 5mg/325mg) 1 tab GT Q4H PRN PRN Reason: mild pain Stop: 10/15/18 16:00 Last Admin: 08/16/18 16:40 Dose: 1 tab Acetaminophen/Hydrocodone Bitart ([place] 10 Mg/325 Mg) 1 tab GT Q4H PRN PRN Reason: mod-severe pain Stop: 10/15/18 16:01 Albuterol Sulfate (Albuterol 2.5mg/3ml Neb Ud) 2.5 mg HHN Q2HRT PRN PRN Reason: Shortness of Breath or Wheeze Stop: 10/13/18 23:10 Docusate Sodium (Colace) 100 mg GT BID [facility] Stop: 10/14/18 08:59 Last Admin: 08/17/18 09:44 Dose: 100 mg Famotidine (Pepcid) 20 mg GT DAILY [facility] Stop: 10/14/18 08:59 Last Admin: 08/17/18 09:44 Dose: 20 mg Sodium Chloride (Nacl 0.9%) 1,000 mls @ 80 mls/hr IV .[id number] [facility] Stop: 10/13/18 23:14 Last Admin: 08/17/18 01:24 Dose: 80 mls/hr Piperacillin Sod/Tazobactam (Sod 4.5 gm/ Sodium Chloride) 100 mls @ 100 mls/hr IV Q8HR [facility] Stop: 10/14/18 04:59 Last Infusion: 08/17/18 06:28 Dose: Infused Vancomycin HCl 1 gm/ Sodium (Chloride) 250 mls @ 165 mls/hr IV Q8H [facility] Stop: 10/16/18 10:59 Last Admin: 08/17/18 10:58 Dose: 165 mls/hr Ipratropium [place] (Atrovent Neb 0.5mg/2.5ml) 0.5 mg HHN Q2HRT PRN PRN Reason: Shortness of Breath or Wheeze Stop: 10/13/18 23:10 Lactobacillus Rhamnosus (Culturelle 15b) 1 each PO DAILY [facility] Stop: 10/16/18 08:59 Last Admin: 08/17/18 09:44 Dose: 1 each Levetiracetam (Keppra) 500 mg PO BID [facility] Stop: 10/14/18 08:59 Last Admin: 08/17/18 09:44 Dose: 500 mg Lorazepam (Ativan) 1 mg IV Q4H PRN; Protocol PRN Reason: Seizure Stop: 10/13/18 23:10 Magnesium Hydroxide (Milk Of Magnesia) 30 ml GT HS PRN PRN Reason: Constipation Stop: 10/13/18 23:07 Midodrine (Proamatine) 5 mg PO TID [facility] Stop: 10/14/18 13:59 Last Admin: 08/17/18 09:44 Dose: 5 mg Miscellaneous (Dextrose 10% [Dextrose 10%]) 250 ml IV PRN PRN PRN Reason: IF GLUCAGON INEFFECTIVE Miscellaneous (Vancomycin Iv Per Pharmacy) 1 ea MC PRN [facility] Stop: 10/13/18 23:14 Miscellaneous (Probiotic Screen) 1 ea PRN PRN PRN Reason: PROTOCOL Stop: 10/15/18 15:03 Nitroglycerin (Nitrostat) 0.4 mg SL Q5MIN PRN PRN Reason: CHEST PAIN X3 Stop: 10/13/18 23:07 Ondansetron HCl (Zofran) 4 mg IV Q8H PRN PRN Reason: Nausea / Vomiting Stop: 10/13/18 23:10 Wound Care/Dressing Products (Silvasorb) 1 appl TP DAILY [facility] Stop: 10/16/18 08:59 Last Admin: 08/17/18 09:46 Dose: 1 appl General: congested, demented, vegetative state, bilateral temporal wasting, appears older HEENT: NC/AT, PERRLA Neck: Supple Lungs: congested, rales Cardiovascular: RRR, Normal S1, Normal S2 Abdomen: soft, thin, +GT, positive bowel sound Extremities: contracture, ulcers stage 2 Neurological: lethargic - Procedures Procedures: Procedures Procedure Code Date CHANGE FEEDING DEVICE IN UP INTEST TRACT, END MATCHER APPROACH [id number] 05/30/17 Internal Medicine Assmt/Plan - Assessment Assessment: ASSESSMENT AND PLAN: Fever, sepsis, hypotension, right hip abscess, leukocytosis, diabetes, status post G-tube, hypertension, hypercholesterolemia, cerebral palsy, hyponatremia, seizure - Plan Plan: PLAN: continue the patient on IV antibiotic on vancomycin and Zosyn. We will follow the patient's culture, including blood culture and wound culture. We will advance his drain. Continue IV hydration, will refer to sx Nutritional Asmnt/Malnutr-PDOC - Dietary Evaluation Malnutrition Findings (Please click <Entered> for more info): Nutritional Asmnt/Malnutrition Start: 08/15/18 13: 57 Text: Status: Active Freq: Protocol: Document 08/15/18 13:58 GREG (Rec: 08/15/18 14:02 GREG [id number]) Nutritional Asmnt/Malnutrition Patient General Information Nutritional Screening High Risk Diagnosis SEPSIS, RT HIP ABCESS Pertinent Medical Hx/Surgical Hx QUADRAPLEGIC, CP INFARCT SEIZURES Subjective Information HIGH RISK, CONSULT: ABENA Melgar PT IS A 33 YEAR OLD MALE ADMITTED ON 08/14 C/O RT HIP ABCESS. PT IS QUADRAPLEGIC. PT HAS POSITIVE SCREEN FOR SEVERE SEPSIS OR SEPTIC SHOCK. HT: 57 WT: 134 LB (60.91KG) BMI: 20.99 (NORMAL) GI: WNL, SOFT, LARGE BM: NOT NOTED I/O: 200/3 (+197) SKIN: PALE, WARM, MOIST, ELASTIC WOUNDS: RT HIP INFECTED ABCESS ABENA: 11 DIET ORDER: NUTREN 2.0 4 CARTONS Q4HRS([id number]-4ST-9PM) ESTIMATED ENERGY NEEDS: ( QUADRIPLEGIA, SEPSIS, CBW) 8735-4413 KCALS (30-35 KCALS/ KG) 67-80 G PRO (1.2-2.0 G/KG) 0543-5956 ML (3-40 ML/KG) CONSIDER THE FOLLOWING: TWOCAL HN @40ML/HR X 24HRS THIS WILL PROVIDE 1920 KCALS, 80G PRO, AND 672ML FREE WATER TO MEET AN ESTIMATED 100% KCAL AND 100% PRO NEEDS TO PROMOTE WOUND HEALING. Current Diet Order/ Nutrition Support NUTREN 2.0 4 CARTONS Q4HRS(9AM -1PM-5PM-9PM) Pertinent Medications ALBUTEROL (PRN), COLACE, PEPCID, MOM (PRN), NITROSTAT, ZOFRAN (PRN), NACL 0.9% 1000ML @80ML/HR IV Q12H 30M [facility] Pertinent Labs 08/14: WBC 16.3, NA 131, CR 0.6, GLUC 120, ALT <3, ALB <1.5 Nutritional Hx/Data Height 1.7 m Height (Calculated Centimeters) 170.2 Current Weight (lbs) 60.781 kg Weight (Calculated Kilograms) 60.8 Weight (Calculated Grams) 14182.4 [place] Body Weight 133 % [place] Body Weight 101 Body Mass Index (BMI) 20.9 Weight Status Approriate GI Symptoms Last BM NOT NOTED Usual diet at home NUTREN 2.0 4 CARTONS Q4HRS(9AM -1PM-5PM-9PM) Skin Integrity/Comment: RT HIP INFECTED ABCESS Estimated Nutritional Goals BEE in Kcals: Using Current wt Calories/Kcals/Kg 30-35 Kcals Calculated 3020-1058 Protein: Using Current wt Protein g/k.2-2.0 Protein Calculated 67-80 Fluid: ml 6000-9734 ML (3-40 ML/KG) Nutritional Problem 1. Problem Problem INCREASED KCAL AND PROTEIN NEEDS Etiology R/T INCREASED METABOLISM Signs/Symptoms: AEB SEPSIS AND RT HIP ABCESS Malnutrition Related to Morbid Obesity Malnutrition related to morbid obesity No Intervention/Recommendation Comments CONSIDER TF: TWOCAL HN @40ML/HR X 24HRS THIS WILL PROVIDE 1920 KCALS, 80G PRO, AND 672ML FREE WATER TO MEET AN ESTIMATED 100% KCAL AND 100% PRO NEEDS TO PROMOTE WOUND HEALING. Expected Outcomes/Goals Expected Outcomes/Goals 1. MONITOR ENTERAL FORMULA TOLERANCE. 2. MONITOR WT, NUTRITION RELATED LABS AND SKIN INTEGRITY. 3. F/U HIGH RISK IN 2-3 DAYS, 08/17-08/18
[2018-08-18] MEDS: Silver Antimicrobial Wound Gel 0.25 oz Tube TP SCH (08:29)
[2018-08-18] MEDS: Docusate Sodium 100 mg/10 mL UD GT SCH ×2 (08:32→16:05)
[2018-08-18] MEDS: Lactobacillus Rhamnosus GG 15 Billion CFU CAP.SPRINK PO SCH (08:32)
[2018-08-18] MEDS: Sodium Chloride 0.9% 1,000 ML IV SCH (08:33)
[2018-08-18] MEDS ORDERED: Diatrizoate Meglumine/Diatri 30 mL Sol PO ONE (13:52)
--- NOTE | 2018-08-18 15:15 | Infectious Disease Prog Note ---
Infectious Disease Subjective - Review of Systems Service Date: 08/18/18 Subjective: cc hip osteo hpi- wound cx now growing kleb s all except bactrim ros no efrv o,e 08/16/18 16:20 (created 08/16/18 17:31) Wound Care Notes by Ricardo Carvalho Dr. Arrived For Right Hip Abscess Surgical Consult: Late note for 1620 secondary to patient care. Dr. Castanon Evaluated Right Hip Abscess, orders were given to the attending nurse. Initialized on 08/16/18 17:31 - END OF NOTE 08/16/18 12:33 Wound Care Notes by Ricardo Carvalho Addendum entered by Ricardo Carvalho 08/16/18 12:49: Error, incomplete note. Please refer to complete note at 1230. Original Note: Wound Evaluation: Wound Consult received from Dr. Hinton. Thank you, Dr. Hinton, for the consult. Patient received in a [place] bed, awake, alert, non-verbal, non-responsive to verbal commands. Patient is unable to turn in bed independently. Abena score is an 11. Past Medical History: Cerebral palsy, chronic respiratory failure, previous tracheostomy, diabetes mellitus, dysphagia, seizure disorder, Recent labs: WBC 7.6, RBC 4.77, hemoglobin 14.7, hematocrit 43.6, weight is 118 , potassium 3.2, BUN 6, creatinine 0.5, glucose 118, calcium 8.5, BNP 128.0, albumin < 1.5. Intrinsic factors that delay wound healing: Extrinsic factors that delay wound healing: Decreased mobility. Wound Assessment: 1): Wound bed is . Mery-wound intact. Measures cm x cm x cm. Recommend: Cleanse wound with normal Saline. Put moisture barrier cream onto mery-wound. Put onto wound bed. Cover with foam dressing. Perform wound care daily, and as needed for dressing soiling or dislodgment. Also recommend: Encourage and assist patient as needed with repositioning every two hours with pillow support, and off-load pressure areas with pillows for pressure re-distribution. Offload, elevate and float heel with pillows. Perform skin care and monitor skin integrity q shift. Use moisture barrier cream on buttocks, and other moisture susceptible areas qid and as needed for soiling. Place patient on a low air-loss mattress. Initialized on 08/16/18 12:33 - END OF NOTE 08/16/18 12:30 (created 08/16/18 12:39) Wound Care Notes by Ricardo Carvalho Addendum entered by Ricardo Carvalho 08/16/18 12:50: Addendum: Recommend surgical consult for right lateral hip abscess, which has erythema, calor, edema, induration, purulent drainage, and undermining. Original Note: Wound Evaluation: Late note for 1230 secondary to patient care. Wound Consult received from Dr. Hinton. Thank you, Dr. Hinton, for the consult. Patient received in a [place] bed, awake, alert, non-verbal, non-responsive to verbal commands. Patient is unable to turn in bed independently. Abena score is an 11. Past Medical History: Cerebral Palsy, Chronic Respiratory Failure, previous Tracheostomy, Diabetes Mellitus, Dysphagia, Seizure disorder. Recent labs: WBC 7.6, RBC 4.77, hemoglobin 14.7, hematocrit 43.6, weight is 118, potassium 3.2, BUN 6, creatinine 0.5, glucose 118, calcium 8.5, BNP 128.0, albumin < 1.5. Intrinsic factors that delay wound healing: Chronic Respiratory Failure, Diabetes Mellitus. Extrinsic factors that delay wound healing: Immobility. Wound Assessment: 1 Right Lateral Hip near Iliac Crest: Abscess, present on admission. Wound bed has 100% yellow slough. No odor, moderate yellow purulent drainage. Small sanguineous drainage post milking of wound. Periwound is erythematous. Surrounding tissue has erythema, calor, edema , induration. Undermining present from 12-3 o'clock (2.0 cm at 12:00; 3.0 cm at 3:00). Recommend: Cleanse wound with normal Saline. Apply moisture barrier cream to mery-wound. Apply Hydrogel to wound bed, then Silvasorb Gel. Pack wound with 1/ 4 inch Iodoform packing strip. Cover with 6x6 foam dressing. Perform wound care daily, and as needed for dressing soiling or dislodgment. 2. Bilateral heels: Blanchable erythema, present on admission. Recommend: Offload, elevate and float bilateral heels with one pillow lengthwise under each extremity at all times. Also recommend: Encourage and assist patient as needed with repositioning every two hours with pillow support, and off-load pressure areas with pillows for pressure re-distribution. Offload, elevate and float bilateral heels with one pillow lengthwise under each extremity at all times. Perform skin care and monitor skin integrity q shift. Use moisture barrier cream on buttocks, and other moisture susceptible areas qid and as needed for soiling. Place patient on a low air-loss mattress. Initialized on 08/16/18 12:39 - END OF NOTE Vital Signs - 24 hr 08/17/18 08/17/18 08/17/18 16:00 17:00 19:00 Temp 97.8 F 97.5 F HR 74 76 RR 18 18 18 BP 98/61 95/62 O2 Sat % 96 08/17/18 08/17/18 08/17/18 19:30 20:00 21:00 Temp 97.5 F 98 F HR 78 76 80 RR 18 18 18 BP 95/62 97/70 O2 Sat % 97 97 08/18/18 08/18/18 08/18/18 00:00 04:00 07:30 Temp 97.7 F 97.8 F HR 67 72 71 RR 18 18 18 BP 99/65 97/61 O2 Sat % 97 99 96 08/18/18 08/18/18 08/18/18 08:00 09:00 11:51 Temp 97.3 F 97.3 F 97.3 F HR 75 75 70 RR 18 18 18 BP 118/58 118/58 105/57 O2 Sat % 98 100 08/18/18 08/18/18 12:00 13:00 Temp 97.3 F HR 70 RR 18 18 BP 105/57 O2 Sat % Procedures CHANGE FEEDING DEVICE IN UP INTEST TRACT, POLICY WRITER APPROACH (05/30/17) Diagnoses SEPSIS, UNSPECIFIED ORGANISM (08/14/18) ELEVATED WHITE BLOOD CELL COUNT, UNSPECIFIED (08/14/18) TYPE 2 DIABETES MELLITUS WITHOUT COMPLICATIONS (08/14/18) HYPO-OSMOLALITY AND HYPONATREMIA (08/14/18) CEREBRAL PALSY, UNSPECIFIED (08/14/18) HYPOTENSION, UNSPECIFIED (08/14/18) CUTANEOUS ABSCESS OF RIGHT LOWER LIMB (08/14/18) WEAKNESS (08/14/18) UNSPECIFIED CONVULSIONS (08/14/18) GASTROSTOMY STATUS (08/14/18) Current Medications Acetaminophen (Tylenol) 650 mg PO Q4H PRN PRN Reason: Pain Or Fever above 101 Stop: 10/13/18 23:07 Last Admin: 08/15/18 20:42 Dose: 650 mg Acetaminophen/Hydrocodone Bitart ([place] 5mg/325mg) 1 tab GT Q4H PRN PRN Reason: mild pain Stop: 10/15/18 16:00 Last Admin: 08/16/18 16:40 Dose: 1 tab Acetaminophen/Hydrocodone Bitart ([place] 10 Mg/325 Mg) 1 tab GT Q4H PRN PRN Reason: mod-severe pain Stop: 10/15/18 16:01 Albuterol Sulfate (Albuterol 2.5mg/3ml Neb Ud) 2.5 mg HHN Q2HRT PRN PRN Reason: Shortness of Breath or Wheeze Stop: 10/13/18 23:10 Docusate Sodium (Colace) 100 mg GT BID [facility] Stop: 10/14/18 08:59 Last Admin: 08/18/18 08:32 Dose: 100 mg Famotidine (Pepcid) 20 mg GT DAILY [facility] Stop: 10/14/18 08:59 Last Admin: 08/18/18 08:32 Dose: 20 mg Sodium Chloride (Nacl 0.9%) 1,000 mls @ 80 mls/hr IV .[id number] [facility] Stop: 10/13/18 23:14 Last Admin: 08/18/18 08:33 Dose: 80 mls/hr Piperacillin Sod/Tazobactam (Sod 4.5 gm/ Sodium Chloride) 100 mls @ 100 mls/hr IV Q8HR [facility] Stop: 10/14/18 04:59 Last Admin: 08/18/18 12:00 Dose: 100 mls/hr Vancomycin HCl 1 gm/ Sodium (Chloride) 250 mls @ 165 mls/hr IV Q8H [facility] Stop: 10/16/18 10:59 Last Admin: 08/18/18 10:00 Dose: 165 mls/hr Ipratropium [place] (Atrovent Neb 0.5mg/2.5ml) 0.5 mg HHN Q2HRT PRN PRN Reason: Shortness of Breath or Wheeze Stop: 10/13/18 23:10 Lactobacillus Rhamnosus (Culturelle 15b) 1 each PO DAILY [facility] Stop: 10/16/18 08:59 Last Admin: 08/18/18 08:32 Dose: 1 each Levetiracetam (Keppra) 500 mg PO BID [facility] Stop: 10/14/18 08:59 Last Admin: 08/18/18 08:32 Dose: 500 mg Lorazepam (Ativan) 1 mg IV Q4H PRN; Protocol PRN Reason: Seizure Stop: 10/13/18 23:10 Magnesium Hydroxide (Milk Of Magnesia) 30 ml GT HS PRN PRN Reason: Constipation Stop: 10/13/18 23:07 Midodrine (Proamatine) 5 mg PO TID [facility] Stop: 10/14/18 13:59 Last Admin: 08/18/18 13:13 Dose: Not Given Miscellaneous (Dextrose 10% [Dextrose 10%]) 250 ml IV PRN PRN PRN Reason: IF GLUCAGON INEFFECTIVE Miscellaneous (Vancomycin Iv Per Pharmacy) 1 ea MC PRN [facility] Stop: 10/13/18 23:14 Miscellaneous (Probiotic Screen) 1 ea MC PRN PRN PRN Reason: PROTOCOL Stop: 10/15/18 15:03 Nitroglycerin (Nitrostat) 0.4 mg SL Q5MIN PRN PRN Reason: CHEST PAIN X3 Stop: 10/13/18 23:07 Ondansetron HCl (Zofran) 4 mg IV Q8H PRN PRN Reason: Nausea / Vomiting Stop: 10/13/18 23:10 Wound Care/Dressing Products (Silvasorb) 1 appl TP DAILY [facility] Stop: 10/16/18 08:59 Last Admin: 08/18/18 08:29 Dose: Not Given Infectious Disease Objective - Results Result Diagrams: 08/16/18 05:06 08/17/18 05:35 Recent Labs: Laboratory Last Values WBC 7.6 Th/cmm (4.8-10.8) 08/16/18 05:06 RBC 4.77 Mil/cmm (4.30-5.70) 08/16/18 05:06 Hgb 14.7 gm/dL (12-16) 08/16/18 05:06 Hct 43.6 % (41.0-60) 08/16/18 05:06 MCV 91.5 fl (80-99) 08/16/18 05:06 MCH 30.9 pg (26.0-30.0) H 08/16/18 05:06 MCHC Differential 33.8 pg (28.0-36.0) 08/16/18 05:06 RDW 12.0 % (11.5-20.0) 08/16/18 05:06 Plt Count 118 Th/cmm (150-400) L 08/16/18 05:06 MPV 11.1 fl 08/16/18 05:06 Add Manual Diff YES 08/14/18 20:00 Neutrophils % 76.4 % (40.0-80.0) 08/16/18 05:06 Band Neutrophils % 4 % (0-10) 08/14/18 20:00 Lymphocytes % 10.2 % (20.0-50.0) L 08/16/18 05:06 Monocytes % 10.9 % (2.0-10.0) H 08/16/18 05:06 Eosinophils % 0.8 % (0.0-5.0) 08/16/18 05:06 Basophils % 1.7 % (0.0-2.0) 08/16/18 05:06 Neutrophils (Manual) 79 % (40-80) 08/14/18 20:00 Lymphocytes 8 % (20-50) L 08/14/18 20:00 Monocytes 9 % (2-10) 08/14/18 20:00 Platelet Estimate DECREASED PLATELETS (NORMAL) 08/14/18 20:00 Sodium 139 mEq/L (136-145) 08/17/18 05:35 Potassium 3.4 mEq/L (3.5-5.1) L 08/17/18 05:35 Chloride 105 mEq/L (98-107) 08/17/18 05:35 Carbon Dioxide 27.4 mEq/L (21.0-31.0) 08/17/18 05:35 Anion Gap 10.0 (7.0-16.0) 08/17/18 05:35 BUN 7 mg/dL (7-25) 08/17/18 05:35 Creatinine 0.4 mg/dL (0.7-1.3) L 08/17/18 05:35 Est GFR ( Amer) > 60.0 ml/min (>90) 08/17/18 05:35 Est GFR (Non-Af Amer) > 60.0 ml/min 08/17/18 05:35 BUN/Creatinine Ratio 17.5 08/17/18 05:35 Glucose 111 mg/dL (70-105) H 08/17/18 05:35 POC Glucose 96 MG/DL (70 - 105) 08/14/18 22:06 Whole Bld Lactic Acid 1.34 mmol/L (0.60-1.99) 08/14/18 20:00 Calcium 8.6 mg/dL (8.6-10.3) 08/17/18 05:35 Magnesium 2.1 mg/dL (1.9-2.7) 08/17/18 05:35 Total Bilirubin 0.6 mg/dL (0.3-1.0) 08/14/18 20:00 AST 22 U/L (13-39) 08/14/18 20:00 ALT < 3 U/L (7-52) L 08/14/18 20:00 Alkaline Phosphatase 51 U/L (34-104) 08/14/18 20:00 Troponin I 0.02 ng/mL (0.01-0.05) 08/14/18 20:00 B-Natriuretic Peptide 128.0 pg/mL (5.0-100.0) H 08/16/18 05:06 Total Protein 7.4 gm/dL (6.0-8.3) 08/14/18 20:00 Albumin < 1.5 gm/dL (4.2-5.5) L 08/14/18 20:00 Globulin 5.9 gm/dL 08/14/18 20:00 Albumin/Globulin Ratio 0.3 (1.0-1.8) L 08/14/18 20:00 TSH 1.42 uIU/ml (0.34-5.60) 08/16/18 05:06 Urine Source CLEAN C 08/14/18 17:40 Urine Color YELLOW 08/14/18 17:40 Urine Clarity CLEAR (CLEAR) 08/14/18 17:40 Urine pH 5.5 (4.6 - 8.0) 08/14/18 17:40 Ur Specific [place] 1.015 (1.005-1.030) 08/14/18 17:40 Urine Protein NEGATIVE mg/dL (NEGATIVE) 08/14/18 17:40 Urine Glucose (UA) NEGATIVE mg/dL (NEGATIVE) 08/14/18 17:40 Urine Ketones 40 mg/dL (NEGATIVE) H 08/14/18 17:40 Urine Blood NEGATIVE (NEGATIVE) 08/14/18 17:40 Urine Nitrate NEGATIVE (NEGATIVE) 08/14/18 17:40 Urine Bilirubin NEGATIVE (NEGATIVE) 08/14/18 17:40 Urine Urobilinogen 0.2 E.U./dL (0.2 - 1.0) 08/14/18 17:40 Ur Leukocyte Esterase NEGATIVE (NEGATIVE) 08/14/18 17:40 Urine RBC 0-2 /hpf (0-5) H 08/14/18 17:40 Urine WBC 0-2 /hpf (0-5) 08/14/18 17:40 Ur Epithelial Cells FEW /lpf (FEW) 08/14/18 17:40 Urine Bacteria FEW /hpf (NONE SEEN) 08/14/18 17:40 Urine Mucus FEW /lpf (FEW) 08/14/18 17:40 Vancomycin Trough 6.0 ug/mL (5-10) 08/17/18 09:10 - Physical Exam Vitals and I&O: Vital Signs Temp 97.3 F 08/18/18 13:00 Pulse 70 08/18/18 13:00 Resp 18 08/18/18 13:00 BP 105/57 08/18/18 13:00 Pulse Ox 100 08/18/18 11:51 Intake & Output 08/17/18 08/18/18 08/18/18 18:59 06:59 18:59 Intake Total 1350 1600 1000 Balance 1350 1600 1000 Weight (lbs) 60.781 kg Intake: Intake, IV Amount [id number] Piperacillin Sodium/ 100 200 Tazobact 4.5 gm In Sodium Chloride 0.9% 100 ml @ 100 mls/hr IV Q8HR [facility] Rx #:[id number] Sodium Chloride 0.9% 1, 1000 1000 000 ml @ 80 mls/hr IV . [id number] [facility] Rx#:[id number] Vancomycin HCl 1 gm In 250 500 Sodium Chloride 0.9% 250 ml @ 165 mls/hr IV Q8H [facility] Rx#:[id number] Tube Feeding 900 Other: # Voids 2 # Bowel Movements 1 Stool Characteristics Soft Soft Soft Weight Source Bedscale Active Medications: Current Medications Acetaminophen (Tylenol) 650 mg PO Q4H PRN PRN Reason: Pain Or Fever above 101 Stop: 10/13/18 23:07 Last Admin: 08/15/18 20:42 Dose: 650 mg Acetaminophen/Hydrocodone Bitart ([place] 5mg/325mg) 1 tab GT Q4H PRN PRN Reason: mild pain Stop: 10/15/18 16:00 Last Admin: 08/16/18 16:40 Dose: 1 tab Acetaminophen/Hydrocodone Bitart ([place] 10 Mg/325 Mg) 1 tab GT Q4H PRN PRN Reason: mod-severe pain Stop: 10/15/18 16:01 Albuterol Sulfate (Albuterol 2.5mg/3ml Neb Ud) 2.5 mg HHN Q2HRT PRN PRN Reason: Shortness of Breath or Wheeze Stop: 10/13/18 23:10 Docusate Sodium (Colace) 100 mg GT BID [facility] Stop: 10/14/18 08:59 Last Admin: 08/18/18 08:32 Dose: 100 mg Famotidine (Pepcid) 20 mg GT DAILY [facility] Stop: 10/14/18 08:59 Last Admin: 08/18/18 08:32 Dose: 20 mg Sodium Chloride (Nacl 0.9%) 1,000 mls @ 80 mls/hr IV .[id number] [facility] Stop: 10/13/18 23:14 Last Admin: 08/18/18 08:33 Dose: 80 mls/hr Piperacillin Sod/Tazobactam (Sod 4.5 gm/ Sodium Chloride) 100 mls @ 100 mls/hr IV Q8HR [facility] Stop: 10/14/18 04:59 Last Admin: 08/18/18 12:00 Dose: 100 mls/hr Vancomycin HCl 1 gm/ Sodium (Chloride) 250 mls @ 165 mls/hr IV Q8H [facility] Stop: 10/16/18 10:59 Last Admin: 08/18/18 10:00 Dose: 165 mls/hr Ipratropium [place] (Atrovent Neb 0.5mg/2.5ml) 0.5 mg HHN Q2HRT PRN PRN Reason: Shortness of Breath or Wheeze Stop: 10/13/18 23:10 Lactobacillus Rhamnosus (Culturelle 15b) 1 each PO DAILY [facility] Stop: 10/16/18 08:59 Last Admin: 08/18/18 08:32 Dose: 1 each Levetiracetam (Keppra) 500 mg PO BID [facility] Stop: 10/14/18 08:59 Last Admin: 08/18/18 08:32 Dose: 500 mg Lorazepam (Ativan) 1 mg IV Q4H PRN; Protocol PRN Reason: Seizure Stop: 10/13/18 23:10 Magnesium Hydroxide (Milk Of Magnesia) 30 ml GT HS PRN PRN Reason: Constipation Stop: 10/13/18 23:07 Midodrine (Proamatine) 5 mg PO TID [facility] Stop: 10/14/18 13:59 Last Admin: 08/18/18 13:13 Dose: Not Given Miscellaneous (Dextrose 10% [Dextrose 10%]) 250 ml IV PRN PRN PRN Reason: IF GLUCAGON INEFFECTIVE Miscellaneous (Vancomycin Iv Per Pharmacy) 1 ea MC PRN [facility] Stop: 10/13/18 23:14 Miscellaneous (Probiotic Screen) 1 ea MC PRN PRN PRN Reason: PROTOCOL Stop: 10/15/18 15:03 Nitroglycerin (Nitrostat) 0.4 mg SL Q5MIN PRN PRN Reason: CHEST PAIN X3 Stop: 10/13/18 23:07 Ondansetron HCl (Zofran) 4 mg IV Q8H PRN PRN Reason: Nausea / Vomiting Stop: 10/13/18 23:10 Wound Care/Dressing Products (Silvasorb) 1 appl TP DAILY [facility] Stop: 10/16/18 08:59 Last Admin: 08/18/18 08:29 Dose: Not Given - Procedures Procedures: Procedures Procedure Code Date CHANGE FEEDING DEVICE IN UP INTEST TRACT, POLICY WRITER APPROACH [id number] 05/30/17 Infectious Disease Assmt/Plan - Plan Plan: vanco iv po levaquin till 09/19/18 Nutritional Asmnt/Malnutr-PDOC - Dietary Evaluation Malnutrition Findings (Please click <Entered> for more info): Nutritional Asmnt/Malnutrition Start: 08/15/18 13: 57 Text: Status: Active Freq: Protocol: Document 08/15/18 13:58 GREG (Rec: 08/15/18 14:02 GREG [id number]) Nutritional Asmnt/Malnutrition Patient General Information Nutritional Screening High Risk Diagnosis SEPSIS, RT HIP ABCESS Pertinent Medical Hx/Surgical Hx QUADRAPLEGIC, CP INFARCT SEIZURES Subjective Information HIGH RISK, CONSULT: ABENA Melgar PT IS A 33 YEAR OLD MALE ADMITTED ON 08/14 C/O RT HIP ABCESS. PT IS QUADRAPLEGIC. PT HAS POSITIVE SCREEN FOR SEVERE SEPSIS OR SEPTIC SHOCK. HT: 57 WT: 134 LB (60.91KG) BMI: 20.99 (NORMAL) GI: WNL, SOFT, LARGE BM: NOT NOTED I/O: 200/3 (+197) SKIN: PALE, WARM, MOIST, ELASTIC WOUNDS: RT HIP INFECTED ABCESS ABENA: 11 DIET ORDER: NUTREN 2.0 4 CARTONS Q4HRS(9GX-2PB-1MX-9PM) ESTIMATED ENERGY NEEDS: ( QUADRIPLEGIA, SEPSIS, CBW) [id number] KCALS (30-35 KCALS/ KG) 67-80 G PRO (1.2-2.0 G/KG) 7946-2532 ML (3-40 ML/KG) CONSIDER THE FOLLOWING: TWOCAL HN @40ML/HR X 24HRS THIS WILL PROVIDE 1920 KCALS, 80G PRO, AND 672ML FREE WATER TO MEET AN ESTIMATED 100% KCAL AND 100% PRO NEEDS TO PROMOTE WOUND HEALING. Current Diet Order/ Nutrition Support NUTREN 2.0 4 CARTONS Q4HRS(9AM -1PM-5PM-9PM) Pertinent Medications ALBUTEROL (PRN), COLACE, PEPCID, MOM (PRN), NITROSTAT, ZOFRAN (PRN), NACL 0.9% 1000ML @80ML/HR IV Q12H 30M [facility] Pertinent Labs 08/14: WBC 16.3, NA 131, CR 0.6, GLUC 120, ALT <3, ALB <1.5 Nutritional Hx/Data Height 1.7 m Height (Calculated Centimeters) 170.2 Current Weight (lbs) 60.781 kg Weight (Calculated Kilograms) 60.8 Weight (Calculated Grams) 61027.4 [place] Body Weight 133 % [place] Body Weight 101 Body Mass Index (BMI) 20.9 Weight Status Approriate GI Symptoms Last BM NOT NOTED Usual diet at home NUTREN 2.0 4 CARTONS Q4HRS(9AM -1PM-5PM-9PM) Skin Integrity/Comment: RT HIP INFECTED ABCESS Estimated Nutritional Goals BEE in Kcals: Using Current wt Calories/Kcals/Kg 30-35 Kcals Calculated [id number] Protein: Using Current wt Protein g/k.2-2.0 Protein Calculated 67-80 Fluid: ml [phone] ML (3-40 ML/KG) Nutritional Problem 1. Problem Problem INCREASED KCAL AND PROTEIN NEEDS Etiology R/T INCREASED METABOLISM Signs/Symptoms: AEB SEPSIS AND RT HIP ABCESS Malnutrition Related to Morbid Obesity Malnutrition related to morbid obesity No Intervention/Recommendation Comments CONSIDER TF: TWOCAL HN @40ML/HR X 24HRS THIS WILL PROVIDE 1920 KCALS, 80G PRO, AND 672ML FREE WATER TO MEET AN ESTIMATED 100% KCAL AND 100% PRO NEEDS TO PROMOTE WOUND HEALING. Expected Outcomes/Goals Expected Outcomes/Goals 1. MONITOR ENTERAL FORMULA TOLERANCE. 2. MONITOR WT, NUTRITION RELATED LABS AND SKIN INTEGRITY. 3. F/U HIGH RISK IN 2-3 DAYS, 08/17-08/18
--- NOTE | 2018-08-18 15:23 | Internal Medicine Prog Note ---
Internal Medicine Subjective - Subjective Patient seen and examined:: with staff, chart reviewed, other (pulled gt) Patient is:: asleep, non-verbal, non-interactive, eyes closed, agitated, congested Patient Complaints of:: congestion Per staff patient has:: no adverse event, no episodes of fall, tolerating meds Internal Medicine Objective - Results Result Diagrams: 08/16/18 05:06 08/17/18 05:35 Recent Labs: Laboratory Last Values WBC 7.6 Th/cmm (4.8-10.8) 08/16/18 05:06 RBC 4.77 Mil/cmm (4.30-5.70) 08/16/18 05:06 Hgb 14.7 gm/dL (12-16) 08/16/18 05:06 Hct 43.6 % (41.0-60) 08/16/18 05:06 MCV 91.5 fl (80-99) 08/16/18 05:06 MCH 30.9 pg (26.0-30.0) H 08/16/18 05:06 MCHC Differential 33.8 pg (28.0-36.0) 08/16/18 05:06 RDW 12.0 % (11.5-20.0) 08/16/18 05:06 Plt Count 118 Th/cmm (150-400) L 08/16/18 05:06 MPV 11.1 fl 08/16/18 05:06 Add Manual Diff YES 08/14/18 20:00 Neutrophils % 76.4 % (40.0-80.0) 08/16/18 05:06 Band Neutrophils % 4 % (0-10) 08/14/18 20:00 Lymphocytes % 10.2 % (20.0-50.0) L 08/16/18 05:06 Monocytes % 10.9 % (2.0-10.0) H 08/16/18 05:06 Eosinophils % 0.8 % (0.0-5.0) 08/16/18 05:06 Basophils % 1.7 % (0.0-2.0) 08/16/18 05:06 Neutrophils (Manual) 79 % (40-80) 08/14/18 20:00 Lymphocytes 8 % (20-50) L 08/14/18 20:00 Monocytes 9 % (2-10) 08/14/18 20:00 Platelet Estimate DECREASED PLATELETS (NORMAL) 08/14/18 20:00 Sodium 139 mEq/L (136-145) 08/17/18 05:35 Potassium 3.4 mEq/L (3.5-5.1) L 08/17/18 05:35 Chloride 105 mEq/L (98-107) 08/17/18 05:35 Carbon Dioxide 27.4 mEq/L (21.0-31.0) 08/17/18 05:35 Anion Gap 10.0 (7.0-16.0) 08/17/18 05:35 BUN 7 mg/dL (7-25) 08/17/18 05:35 Creatinine 0.4 mg/dL (0.7-1.3) L 08/17/18 05:35 Est GFR ( Amer) > 60.0 ml/min (>90) 08/17/18 05:35 Est GFR (Non-Af Amer) > 60.0 ml/min 08/17/18 05:35 BUN/Creatinine Ratio 17.5 08/17/18 05:35 Glucose 111 mg/dL (70-105) H 08/17/18 05:35 POC Glucose 96 MG/DL (70 - 105) 08/14/18 22:06 Whole Bld Lactic Acid 1.34 mmol/L (0.60-1.99) 08/14/18 20:00 Calcium 8.6 mg/dL (8.6-10.3) 08/17/18 05:35 Magnesium 2.1 mg/dL (1.9-2.7) 08/17/18 05:35 Total Bilirubin 0.6 mg/dL (0.3-1.0) 08/14/18 20:00 AST 22 U/L (13-39) 08/14/18 20:00 ALT < 3 U/L (7-52) L 08/14/18 20:00 Alkaline Phosphatase 51 U/L (34-104) 08/14/18 20:00 Troponin I 0.02 ng/mL (0.01-0.05) 08/14/18 20:00 B-Natriuretic Peptide 128.0 pg/mL (5.0-100.0) H 08/16/18 05:06 Total Protein 7.4 gm/dL (6.0-8.3) 08/14/18 20:00 Albumin < 1.5 gm/dL (4.2-5.5) L 08/14/18 20:00 Globulin 5.9 gm/dL 08/14/18 20:00 Albumin/Globulin Ratio 0.3 (1.0-1.8) L 08/14/18 20:00 TSH 1.42 uIU/ml (0.34-5.60) 08/16/18 05:06 Urine Source CLEAN C 08/14/18 17:40 Urine Color YELLOW 08/14/18 17:40 Urine Clarity CLEAR (CLEAR) 08/14/18 17:40 Urine pH 5.5 (4.6 - 8.0) 08/14/18 17:40 Ur Specific [place] 1.015 (1.005-1.030) 08/14/18 17:40 Urine Protein NEGATIVE mg/dL (NEGATIVE) 08/14/18 17:40 Urine Glucose (UA) NEGATIVE mg/dL (NEGATIVE) 08/14/18 17:40 Urine Ketones 40 mg/dL (NEGATIVE) H 08/14/18 17:40 Urine Blood NEGATIVE (NEGATIVE) 08/14/18 17:40 Urine Nitrate NEGATIVE (NEGATIVE) 08/14/18 17:40 Urine Bilirubin NEGATIVE (NEGATIVE) 08/14/18 17:40 Urine Urobilinogen 0.2 E.U./dL (0.2 - 1.0) 08/14/18 17:40 Ur Leukocyte Esterase NEGATIVE (NEGATIVE) 08/14/18 17:40 Urine RBC 0-2 /hpf (0-5) H 08/14/18 17:40 Urine WBC 0-2 /hpf (0-5) 08/14/18 17:40 Ur Epithelial Cells FEW /lpf (FEW) 08/14/18 17:40 Urine Bacteria FEW /hpf (NONE SEEN) 08/14/18 17:40 Urine Mucus FEW /lpf (FEW) 08/14/18 17:40 Vancomycin Trough 6.0 ug/mL (5-10) 08/17/18 09:10 - Physical Exam Vitals and I&O: Vital Signs Temp 97.3 F 08/18/18 13:00 Pulse 70 08/18/18 13:00 Resp 18 08/18/18 13:00 BP 105/57 08/18/18 13:00 Pulse Ox 100 08/18/18 11:51 Intake & Output 08/17/18 08/18/18 08/18/18 18:59 06:59 18:59 Intake Total 1350 1600 1000 Balance 1350 1600 1000 Weight (lbs) 60.781 kg Intake: Intake, IV Amount 9969 [id number] Piperacillin Sodium/ 100 200 Tazobact 4.5 gm In Sodium Chloride 0.9% 100 ml @ 100 mls/hr IV Q8HR [facility] Rx #:[id number] Sodium Chloride 0.9% 1, 1000 1000 000 ml @ 80 mls/hr IV . [id number] [facility] Rx#:[id number] Vancomycin HCl 1 gm In 250 500 Sodium Chloride 0.9% 250 ml @ 165 mls/hr IV Q8H [facility] Rx#:[id number] Tube Feeding 900 Other: # Voids 2 # Bowel Movements 1 Stool Characteristics Soft Soft Soft Weight Source Bedscale Active Medications: Current Medications Acetaminophen (Tylenol) 650 mg PO Q4H PRN PRN Reason: Pain Or Fever above 101 Stop: 10/13/18 23:07 Last Admin: 08/15/18 20:42 Dose: 650 mg Acetaminophen/Hydrocodone Bitart ([place] 5mg/325mg) 1 tab GT Q4H PRN PRN Reason: mild pain Stop: 10/15/18 16:00 Last Admin: 08/16/18 16:40 Dose: 1 tab Acetaminophen/Hydrocodone Bitart ([place] 10 Mg/325 Mg) 1 tab GT Q4H PRN PRN Reason: mod-severe pain Stop: 10/15/18 16:01 Albuterol Sulfate (Albuterol 2.5mg/3ml Neb Ud) 2.5 mg HHN Q2HRT PRN PRN Reason: Shortness of Breath or Wheeze Stop: 10/13/18 23:10 Docusate Sodium (Colace) 100 mg GT BID [facility] Stop: 10/14/18 08:59 Last Admin: 08/18/18 08:32 Dose: 100 mg Famotidine (Pepcid) 20 mg GT DAILY [facility] Stop: 10/14/18 08:59 Last Admin: 08/18/18 08:32 Dose: 20 mg Sodium Chloride (Nacl 0.9%) 1,000 mls @ 80 mls/hr IV .[id number] [facility] Stop: 10/13/18 23:14 Last Admin: 08/18/18 08:33 Dose: 80 mls/hr Piperacillin Sod/Tazobactam (Sod 4.5 gm/ Sodium Chloride) 100 mls @ 100 mls/hr IV Q8HR [facility] Stop: 10/14/18 04:59 Last Admin: 08/18/18 12:00 Dose: 100 mls/hr Vancomycin HCl 1 gm/ Sodium (Chloride) 250 mls @ 165 mls/hr IV Q8H [facility] Stop: 10/16/18 10:59 Last Admin: 08/18/18 10:00 Dose: 165 mls/hr Ipratropium [place] (Atrovent Neb 0.5mg/2.5ml) 0.5 mg HHN Q2HRT PRN PRN Reason: Shortness of Breath or Wheeze Stop: 10/13/18 23:10 Lactobacillus Rhamnosus (Culturelle 15b) 1 each PO DAILY [facility] Stop: 10/16/18 08:59 Last Admin: 08/18/18 08:32 Dose: 1 each Levetiracetam (Keppra) 500 mg PO BID [facility] Stop: 10/14/18 08:59 Last Admin: 08/18/18 08:32 Dose: 500 mg Lorazepam (Ativan) 1 mg IV Q4H PRN; Protocol PRN Reason: Seizure Stop: 10/13/18 23:10 Magnesium Hydroxide (Milk Of Magnesia) 30 ml GT HS PRN PRN Reason: Constipation Stop: 10/13/18 23:07 Midodrine (Proamatine) 5 mg PO TID [facility] Stop: 10/14/18 13:59 Last Admin: 08/18/18 13:13 Dose: Not Given Miscellaneous (Dextrose 10% [Dextrose 10%]) 250 ml IV PRN PRN PRN Reason: IF GLUCAGON INEFFECTIVE Miscellaneous (Vancomycin Iv Per Pharmacy) 1 ea MC PRN [facility] Stop: 10/13/18 23:14 Miscellaneous (Probiotic Screen) 1 ea MC PRN PRN PRN Reason: PROTOCOL Stop: 10/15/18 15:03 Nitroglycerin (Nitrostat) 0.4 mg SL Q5MIN PRN PRN Reason: CHEST PAIN X3 Stop: 10/13/18 23:07 Ondansetron HCl (Zofran) 4 mg IV Q8H PRN PRN Reason: Nausea / Vomiting Stop: 10/13/18 23:10 Wound Care/Dressing Products (Silvasorb) 1 appl TP DAILY [facility] Stop: 10/16/18 08:59 Last Admin: 08/18/18 08:29 Dose: Not Given General: congested, demented, vegetative state, bilateral temporal wasting, appears older HEENT: NC/AT, PERRLA Neck: Supple Lungs: congested, rales Cardiovascular: RRR, Normal S1, Normal S2 Abdomen: soft, thin, +GT, positive bowel sound Extremities: contracture, ulcers stage 2 Neurological: lethargic - Procedures Procedures: Procedures Procedure Code Date CHANGE FEEDING DEVICE IN UP INTEST TRACT, CLINIC DIRECTOR APPROACH [id number] 05/30/17 Internal Medicine Assmt/Plan - Assessment Assessment: ASSESSMENT AND PLAN: Fever, sepsis, hypotension, right hip abscess, leukocytosis, diabetes, status post G-tube, hypertension, hypercholesterolemia, cerebral palsy, hyponatremia, seizure pulled gt - Plan Plan: PLAN: continue the patient on IV antibiotic on vancomycin and Zosyn. We will follow the patient's culture, including blood culture and wound culture. We will advance his drain. Continue IV hydration, will refer to sx gi consult Nutritional Asmnt/Malnutr-PDOC - Dietary Evaluation Malnutrition Findings (Please click <Entered> for more info): Nutritional Asmnt/Malnutrition Start: 08/15/18 13: 57 Text: Status: Active Freq: Protocol: Document 08/15/18 13:58 GREG (Rec: 08/15/18 14:02 GREG [email or web address]) Nutritional Asmnt/Malnutrition Patient General Information Nutritional Screening High Risk Diagnosis SEPSIS, RT HIP ABCESS Pertinent Medical Hx/Surgical Hx QUADRAPLEGIC, CP INFARCT SEIZURES Subjective Information HIGH RISK, CONSULT: ABENA Melgar PT IS A 33 YEAR OLD MALE ADMITTED ON 08/14 C/O RT HIP ABCESS. PT IS QUADRAPLEGIC. PT HAS POSITIVE SCREEN FOR SEVERE SEPSIS OR SEPTIC SHOCK. HT: 57 WT: 134 LB (60.91KG) BMI: 20.99 (NORMAL) GI: WNL, SOFT, LARGE BM: NOT NOTED I/O: 200/3 (+197) SKIN: PALE, WARM, MOIST, ELASTIC WOUNDS: RT HIP INFECTED ABCESS ABENA: 11 DIET ORDER: NUTREN 2.0 4 CARTONS Q4HRS(1EE-6VN-8KH-9PM) ESTIMATED ENERGY NEEDS: ( QUADRIPLEGIA, SEPSIS, CBW) 9629-6402 KCALS (30-35 KCALS/ KG) 67-80 G PRO (1.2-2.0 G/KG) 8389-8443 ML (3-40 ML/KG) CONSIDER THE FOLLOWING: TWOCAL HN @40ML/HR X 24HRS THIS WILL PROVIDE 1920 KCALS, 80G PRO, AND 672ML FREE WATER TO MEET AN ESTIMATED 100% KCAL AND 100% PRO NEEDS TO PROMOTE WOUND HEALING. Current Diet Order/ Nutrition Support NUTREN 2.0 4 CARTONS Q4HRS(9AM -1PM-5PM-9PM) Pertinent Medications ALBUTEROL (PRN), COLACE, PEPCID, MOM (PRN), NITROSTAT, ZOFRAN (PRN), NACL 0.9% 1000ML @80ML/HR IV Q12H 30M [facility] Pertinent Labs /: WBC 16.3, NA 131, CR 0.6, GLUC 120, ALT <3, ALB <1.5 Nutritional Hx/Data Height 1.7 m Height (Calculated Centimeters) 170.2 Current Weight (lbs) 60.781 kg Weight (Calculated Kilograms) 60.8 Weight (Calculated Grams) 42804.4 [place] Body Weight 133 % [place] Body Weight 101 Body Mass Index (BMI) 20.9 Weight Status Approriate GI Symptoms Last BM NOT NOTED Usual diet at home NUTREN 2.0 4 CARTONS Q4HRS(9AM -1PM-5PM-9PM) Skin Integrity/Comment: RT HIP INFECTED ABCESS Estimated Nutritional Goals BEE in Kcals: Using Current wt Calories/Kcals/Kg 30-35 Kcals Calculated 8562-9232 Protein: Using Current wt Protein g/k.2-2.0 Protein Calculated 67-80 Fluid: ml 8654-8972 ML (3-40 ML/KG) Nutritional Problem 1. Problem Problem INCREASED KCAL AND PROTEIN NEEDS Etiology R/T INCREASED METABOLISM Signs/Symptoms: AEB SEPSIS AND RT HIP ABCESS Malnutrition Related to Morbid Obesity Malnutrition related to morbid obesity No Intervention/Recommendation Comments CONSIDER TF: TWOCAL HN @40ML/HR X 24HRS THIS WILL PROVIDE 1920 KCALS, 80G PRO, AND 672ML FREE WATER TO MEET AN ESTIMATED 100% KCAL AND 100% PRO NEEDS TO PROMOTE WOUND HEALING. Expected Outcomes/Goals Expected Outcomes/Goals 1. MONITOR ENTERAL FORMULA TOLERANCE. 2. MONITOR WT, NUTRITION RELATED LABS AND SKIN INTEGRITY. 3. F/U HIGH RISK IN 2-3 DAYS, 08/17-08/18
--- NOTE | 2018-08-19 03:04 | Consultation ---
DATE OF CONSULTATION: 08/17/2018 PRIMARY CARE PHYSICIAN: Dr. Hinton. HISTORY OF PRESENT ILLNESS: This is a 33-year-old male who was brought to the Emergency Room with complaint of worsening wound on the right hip area. The patient was seen by Surgery and underwent I and D, wound culture, MRSA. Infectious consultation was called. The patient is already on Zosyn and vancomycin and unable to get any history from the patient because of mental retardation discussed with the staff. PAST MEDICAL HISTORY: EGD, PEG placement, tracheostomy. FAMILY HISTORY: Negative. SOCIAL HISTORY: Lives in a nursing facility. Nonsmoker. REVIEW OF SYSTEMS: Unable to obtain. No HIV, hepatitis, fall, trauma, bleeding, seizures. PHYSICAL EXAMINATION: GENERAL: Young male, making eye contact, unable to verbalize or follow any commands because of mental retardation with the following vital signs. VITAL SIGNS: Temperature is 97.5, pulse 76, respirations 18, blood pressure 95/62. HEENT: Mild pallor. No icterus or plaque. NECK: Supple. LUNGS: Breath sounds decreased. CARDIOVASCULAR: S1. ABDOMEN: Soft. Deep wound on the hip area. See pictures. EXTREMITIES: Pulses palpable all the limbs. LABORATORY DATA: Wound culture, MRSA group G Streptococcus and Klebsiella. MRSA sensitive to vancomycin, tetracycline, Bactrim, clindamycin, Zyvox. Klebsiella sensitive to Amikacin, Unasyn, ceftazidime, gentamicin, meropenem, tetracycline, tobramycin, Rocephin, imipenem, Cipro, Zosyn, resistant to Bactrim. Nuclear bone scan on 08/16/2018 shows increased accumulation femoral head and neck area. Osteomyelitis cannot be excluded. DIAGNOSES: Infected wound on the hip area. The patient is status post I and D. We will continue vancomycin till 09/19/2018 and p.o. Levaquin for the same duration. Rest of the care as ordered in CPOE. Thank you, Dr. Hinton, for this consultation. JOB# [id number]
[2018-08-19 04:34] LABS: % BASOPHILS 0.9 % (0.0-2.0); % EOSINOPHILS 3.3 % (0.0-5.0); % LYMPHOCYTES 22.5 % (20.0-50.0); % MONOCYTES 13.4 % (2.0-10.0); % NEUTROPHILS 59.9 % (40.0-80.0); BASOPHILE ABSOLUTE 0.1 Th/cumm (0-0.2); EOSINOPHILE ABSOLUTE 0.2 Th/cmm (0.1-0.4); HEMATOCRIT 43.2 % (41.0-60); HEMOGLOBIN 14.6 gm/dL (12-16); LYMPHOCYTE ABSOLUTE 1.4 Th/cmm (1.5-3.0); MEAN CELL VOLUME 91.4 fl (80-99); MEAN CORPUSCULAR HEMOGLOBIN 30.8 pg (26.0-30.0); MEAN CORPUSCULAR HGB CONC 33.7 pg (28.0-36.0); MONOCYTE ABSOLUTE 0.8 Th/cmm (0.3-1.0); NEUTROPHILE ABSOLUTE 3.6 Th/cmm (1.8-8.0); PLATELET COUNT 174 Th/cmm (150-400); RED BLOOD COUNT 4.73 Mil/cmm (4.30-5.70); RED CELL DISTRIBUTION WIDTH 12.3 % (11.5-20.0); WHITE BLOOD COUNT 6.1 Th/cmm (4.8-10.8)
[2018-08-19 05:00] LABS: ANION GAP 11.9 (7.0-16.0); BUN - UREA NITROGEN 8 mg/dL (7-25); CALCIUM SERUM 9.2 mg/dL (8.6-10.3); CARBON DIOXIDE 26.9 mEq/L (21.0-31.0); CHLORIDE 100 mEq/L (98-107); CREATININE - SERUM 0.4 mg/dL (0.7-1.3); GFR AFRICAN-AMERICAN > 60.0 ml/min (>90); GFR NON AFRICAN-AMERICAN > 60.0 ml/min; GLUCOSE 85 mg/dL (70-105); MAGNESIUM 2.1 mg/dL (1.9-2.7); POTASSIUM SERUM 3.8 mEq/L (3.5-5.1); SODIUM SERUM 135 mEq/L (136-145)
[2018-08-19] MEDS: Sodium Chloride 0.9% 1,000 ML IV SCH ×3 (05:07→21:34)
--- NOTE | 2018-08-19 09:00 | Diagnostic Imaging Report ---
Upper GI (Limited) HISTORY: Gastrostomy tube placement Water-soluble contrast was instilled through patient's gastrostomy tube. The exam demonstrates opacification of the gastric lumen with free flow contrast into the small bowel. IMPRESSION: 1. Confirmation of gastrostomy tube within the gastric lumen
[2018-08-19] MEDS: Docusate Sodium 100 mg/10 mL UD GT SCH ×2 (09:11→16:20)
[2018-08-19] MEDS: Lactobacillus Rhamnosus GG 15 Billion CFU CAP.SPRINK PO SCH (09:11)
[2018-08-19] MEDS: Silver Antimicrobial Wound Gel 0.25 oz Tube TP SCH (09:58)
--- NOTE | 2018-08-19 12:09 | Internal Medicine Prog Note ---
Internal Medicine Subjective - Subjective Patient seen and examined:: with staff, chart reviewed Patient is:: asleep, non-verbal, non-interactive, eyes closed, agitated, congested Patient Complaints of:: congestion Per staff patient has:: no adverse event, no episodes of fall, tolerating meds Internal Medicine Objective - Results Result Diagrams: 08/19/18 04:15 08/19/18 04:15 Recent Labs: Laboratory Last Values WBC 6.1 Th/cmm (4.8-10.8) 08/19/18 04:15 RBC 4.73 Mil/cmm (4.30-5.70) 08/19/18 04:15 Hgb 14.6 gm/dL (12-16) 08/19/18 04:15 Hct 43.2 % (41.0-60) 08/19/18 04:15 MCV 91.4 fl (80-99) 08/19/18 04:15 MCH 30.8 pg (26.0-30.0) H 08/19/18 04:15 MCHC Differential 33.7 pg (28.0-36.0) 08/19/18 04:15 RDW 12.3 % (11.5-20.0) 08/19/18 04:15 Plt Count 174 Th/cmm (150-400) 08/19/18 04:15 MPV 10.3 fl 08/19/18 04:15 Add Manual Diff YES 08/14/18 20:00 Neutrophils % 59.9 % (40.0-80.0) 08/19/18 04:15 Band Neutrophils % 4 % (0-10) 08/14/18 20:00 Lymphocytes % 22.5 % (20.0-50.0) 08/19/18 04:15 Monocytes % 13.4 % (2.0-10.0) H 08/19/18 04:15 Eosinophils % 3.3 % (0.0-5.0) 08/19/18 04:15 Basophils % 0.9 % (0.0-2.0) 08/19/18 04:15 Neutrophils (Manual) 79 % (40-80) 08/14/18 20:00 Lymphocytes 8 % (20-50) L 08/14/18 20:00 Monocytes 9 % (2-10) 08/14/18 20:00 Platelet Estimate DECREASED PLATELETS (NORMAL) 08/14/18 20:00 Sodium 135 mEq/L (136-145) L 08/19/18 04:15 Potassium 3.8 mEq/L (3.5-5.1) 08/19/18 04:15 Chloride 100 mEq/L (98-107) 08/19/18 04:15 Carbon Dioxide 26.9 mEq/L (21.0-31.0) 08/19/18 04:15 Anion Gap 11.9 (7.0-16.0) 08/19/18 04:15 BUN 8 mg/dL (7-25) 08/19/18 04:15 Creatinine 0.4 mg/dL (0.7-1.3) L 08/19/18 04:15 Est GFR ( Amer) > 60.0 ml/min (>90) 08/19/18 04:15 Est GFR (Non-Af Amer) > 60.0 ml/min 08/19/18 04:15 BUN/Creatinine Ratio 20.0 08/19/18 04:15 Glucose 85 mg/dL (70-105) 08/19/18 04:15 POC Glucose 96 MG/DL (70 - 105) 08/14/18 22:06 Whole Bld Lactic Acid 1.34 mmol/L (0.60-1.99) 08/14/18 20:00 Calcium 9.2 mg/dL (8.6-10.3) 08/19/18 04:15 Magnesium 2.1 mg/dL (1.9-2.7) 08/19/18 04:15 Total Bilirubin 0.6 mg/dL (0.3-1.0) 08/14/18 20:00 AST 22 U/L (13-39) 08/14/18 20:00 ALT < 3 U/L (7-52) L 08/14/18 20:00 Alkaline Phosphatase 51 U/L (34-104) 08/14/18 20:00 Troponin I 0.02 ng/mL (0.01-0.05) 08/14/18 20:00 B-Natriuretic Peptide 11.2 pg/mL (5.0-100.0) 08/19/18 04:15 Total Protein 7.4 gm/dL (6.0-8.3) 08/14/18 20:00 Albumin < 1.5 gm/dL (4.2-5.5) L 08/14/18 20:00 Globulin 5.9 gm/dL 08/14/18 20:00 Albumin/Globulin Ratio 0.3 (1.0-1.8) L 08/14/18 20:00 TSH 1.42 uIU/ml (0.34-5.60) 08/16/18 05:06 Urine Source CLEAN C 08/14/18 17:40 Urine Color YELLOW 08/14/18 17:40 Urine Clarity CLEAR (CLEAR) 08/14/18 17:40 Urine pH 5.5 (4.6 - 8.0) 08/14/18 17:40 Ur Specific [place] 1.015 (1.005-1.030) 08/14/18 17:40 Urine Protein NEGATIVE mg/dL (NEGATIVE) 08/14/18 17:40 Urine Glucose (UA) NEGATIVE mg/dL (NEGATIVE) 08/14/18 17:40 Urine Ketones 40 mg/dL (NEGATIVE) H 08/14/18 17:40 Urine Blood NEGATIVE (NEGATIVE) 08/14/18 17:40 Urine Nitrate NEGATIVE (NEGATIVE) 08/14/18 17:40 Urine Bilirubin NEGATIVE (NEGATIVE) 08/14/18 17:40 Urine Urobilinogen 0.2 E.U./dL (0.2 - 1.0) 08/14/18 17:40 Ur Leukocyte Esterase NEGATIVE (NEGATIVE) 08/14/18 17:40 Urine RBC 0-2 /hpf (0-5) H 08/14/18 17:40 Urine WBC 0-2 /hpf (0-5) 08/14/18 17:40 Ur Epithelial Cells FEW /lpf (FEW) 08/14/18 17:40 Urine Bacteria FEW /hpf (NONE SEEN) 08/14/18 17:40 Urine Mucus FEW /lpf (FEW) 08/14/18 17:40 Vancomycin Trough 21.4 ug/mL (5-10) H 08/19/18 10:00 - Physical Exam Vitals and I&O: Vital Signs Temp 97.9 F 08/19/18 11:46 Pulse 61 08/19/18 11:46 Resp 18 08/19/18 11:46 BP 99/67 08/19/18 11:46 Pulse Ox 100 08/19/18 11:46 Intake & Output 08/18/18 08/19/18 08/19/18 18:59 06:59 18:59 Intake Total 2200 1601.333 Balance 2200 1601.333 Weight (lbs) 60.781 kg Intake: Intake, IV Amount 1350 1601.333 Piperacillin Sodium/ 100 100 Tazobact 4.5 gm In Sodium Chloride 0.9% 100 ml @ 100 mls/hr IV Q8HR [facility] Rx #:[id number] Sodium Chloride 0.9% 1, 1000 1001.333 000 ml @ 80 mls/hr IV . [id number] [facility] Rx#:[id number] Vancomycin HCl 1 gm In 250 500 Sodium Chloride 0.9% 250 ml @ 165 mls/hr IV Q8H [facility] Rx#:[id number] Tube Feeding 850 Other: # Voids 2 # Bowel Movements 1 Stool Characteristics Soft Soft Weight Source Bedscale Active Medications: Current Medications Acetaminophen (Tylenol) 650 mg PO Q4H PRN PRN Reason: Pain Or Fever above 101 Stop: 10/13/18 23:07 Last Admin: 08/15/18 20:42 Dose: 650 mg Acetaminophen/Hydrocodone Bitart ([place] 5mg/325mg) 1 tab GT Q4H PRN PRN Reason: mild pain Stop: 10/15/18 16:00 Last Admin: 08/16/18 16:40 Dose: 1 tab Acetaminophen/Hydrocodone Bitart ([place] 10 Mg/325 Mg) 1 tab GT Q4H PRN PRN Reason: mod-severe pain Stop: 10/15/18 16:01 Albuterol Sulfate (Albuterol 2.5mg/3ml Neb Ud) 2.5 mg HHN Q2HRT PRN PRN Reason: Shortness of Breath or Wheeze Stop: 10/13/18 23:10 Docusate Sodium (Colace) 100 mg GT BID [facility] Stop: 10/14/18 08:59 Last Admin: 08/19/18 09:11 Dose: Not Given Famotidine (Pepcid) 20 mg GT DAILY [facility] Stop: 10/14/18 08:59 Last Admin: 08/19/18 09:11 Dose: Not Given Sodium Chloride (Nacl 0.9%) 1,000 mls @ 80 mls/hr IV .[id number] [facility] Stop: 10/13/18 23:14 Last Admin: 08/19/18 05:08 Dose: 80 mls/hr Piperacillin Sod/Tazobactam (Sod 4.5 gm/ Sodium Chloride) 100 mls @ 100 mls/hr IV Q8HR [facility] Stop: 10/14/18 04:59 Last Admin: 08/19/18 05:07 Dose: 100 mls/hr Vancomycin HCl 1 gm/ Sodium (Chloride) 250 mls @ 165 mls/hr IV Q8H [facility] Stop: 08/19/18 13:00 Last Admin: 08/19/18 09:59 Dose: 165 mls/hr Vancomycin HCl 1 gm/ Sodium (Chloride) 250 mls @ 165 mls/hr IV Q8H [facility] Stop: 10/18/18 20:59 Ipratropium [place] (Atrovent Neb 0.5mg/2.5ml) 0.5 mg HHN Q2HRT PRN PRN Reason: Shortness of Breath or Wheeze Stop: 10/13/18 23:10 Lactobacillus Rhamnosus (Culturelle 15b) 1 each PO DAILY [facility] Stop: 10/16/18 08:59 Last Admin: 08/19/18 09:11 Dose: Not Given Levetiracetam (Keppra) 500 mg PO BID [facility] Stop: 10/14/18 08:59 Last Admin: 08/19/18 09:11 Dose: Not Given Lorazepam (Ativan) 1 mg IV Q4H PRN; Protocol PRN Reason: Seizure Stop: 10/13/18 23:10 Magnesium Hydroxide (Milk Of Magnesia) 30 ml GT HS PRN PRN Reason: Constipation Stop: 10/13/18 23:07 Midodrine (Proamatine) 5 mg PO TID [facility] Stop: 10/14/18 13:59 Last Admin: 08/19/18 09:11 Dose: Not Given Miscellaneous (Dextrose 10% [Dextrose 10%]) 250 ml IV PRN PRN PRN Reason: IF GLUCAGON INEFFECTIVE Miscellaneous (Vancomycin Iv Per Pharmacy) 1 ea MC PRN [facility] Stop: 10/13/18 23:14 Miscellaneous (Probiotic Screen) 1 ea MC PRN PRN PRN Reason: PROTOCOL Stop: 10/15/18 15:03 Nitroglycerin (Nitrostat) 0.4 mg SL Q5MIN PRN PRN Reason: CHEST PAIN X3 Stop: 10/13/18 23:07 Ondansetron HCl (Zofran) 4 mg IV Q8H PRN PRN Reason: Nausea / Vomiting Stop: 10/13/18 23:10 Wound Care/Dressing Products (Silvasorb) 1 appl TP DAILY [facility] Stop: 10/16/18 08:59 Last Admin: 08/19/18 09:58 Dose: Not Given General: congested, demented, vegetative state, bilateral temporal wasting, appears older HEENT: NC/AT, PERRLA Neck: Supple Lungs: congested, rales Cardiovascular: RRR, Normal S1, Normal S2 Abdomen: soft, thin, +GT, positive bowel sound Extremities: contracture, ulcers stage 2 Neurological: lethargic - Procedures Procedures: Procedures Procedure Code Date CHANGE FEEDING DEVICE IN UP INTEST TRACT, SAP CONSULTANT APPROACH [id number] 05/30/17 Internal Medicine Assmt/Plan - Assessment Assessment: ASSESSMENT AND PLAN: Fever, sepsis, hypotension, right hip abscess, leukocytosis, diabetes, status post G-tube, hypertension, hypercholesterolemia, cerebral palsy, hyponatremia, seizure pulled gt - Plan Plan: PLAN: continue the patient on IV antibiotic on vancomycin and Zosyn. We will follow the patient's culture, including blood culture and wound culture. We will advance his drain. Continue IV hydration, will refer to sx gi consult Nutritional Asmnt/Malnutr-PDOC - Dietary Evaluation Malnutrition Findings (Please click <Entered> for more info): Nutritional Asmnt/Malnutrition Start: 08/15/18 13: 57 Text: Status: Active Freq: Protocol: Document 08/15/18 13:58 GREG (Rec: 08/15/18 14:02 GREG [id number]) Nutritional Asmnt/Malnutrition Patient General Information Nutritional Screening High Risk Diagnosis SEPSIS, RT HIP ABCESS Pertinent Medical Hx/Surgical Hx QUADRAPLEGIC, CP INFARCT SEIZURES Subjective Information HIGH RISK, CONSULT: ABENA Melgar PT IS A 33 YEAR OLD MALE ADMITTED ON 08/14 C/O RT HIP ABCESS. PT IS QUADRAPLEGIC. PT HAS POSITIVE SCREEN FOR SEVERE SEPSIS OR SEPTIC SHOCK. HT: 57 WT: 134 LB (60.91KG) BMI: 20.99 (NORMAL) GI: WNL, SOFT, LARGE BM: NOT NOTED I/O: 200/3 (+197) SKIN: PALE, WARM, MOIST, ELASTIC WOUNDS: RT HIP INFECTED ABCESS ABENA: 11 DIET ORDER: NUTREN 2.0 4 CARTONS Q4HRS([id number]-9PM) ESTIMATED ENERGY NEEDS: ( QUADRIPLEGIA, SEPSIS, CBW) 0815-5188 KCALS (30-35 KCALS/ KG) 67-80 G PRO (1.2-2.0 G/KG) 3557-4367 ML (3-40 ML/KG) CONSIDER THE FOLLOWING: TWOCAL HN @40ML/HR X 24HRS THIS WILL PROVIDE 1920 KCALS, 80G PRO, AND 672ML FREE WATER TO MEET AN ESTIMATED 100% KCAL AND 100% PRO NEEDS TO PROMOTE WOUND HEALING. Current Diet Order/ Nutrition Support NUTREN 2.0 4 CARTONS Q4HRS(9AM -1PM-5PM-9PM) Pertinent Medications ALBUTEROL (PRN), COLACE, PEPCID, MOM (PRN), NITROSTAT, ZOFRAN (PRN), NACL 0.9% 1000ML @80ML/HR IV Q12H 30M SHIRA Pertinent Labs 08/14: WBC 16.3, NA 131, CR 0.6, GLUC 120, ALT <3, ALB <1.5 Nutritional Hx/Data Height 1.7 m Height (Calculated Centimeters) 170.2 Current Weight (lbs) 60.781 kg Weight (Calculated Kilograms) 60.8 Weight (Calculated Grams) 56941.4 Salley Body Weight 133 % Salley Body Weight 101 Body Mass Index (BMI) 20.9 Weight Status Approriate GI Symptoms Last BM NOT NOTED Usual diet at home NUTREN 2.0 4 CARTONS Q4HRS(9AM -1PM-5PM-9PM) Skin Integrity/Comment: RT HIP INFECTED ABCESS Estimated Nutritional Goals BEE in Kcals: Using Current wt Calories/Kcals/Kg 30-35 Kcals Calculated 6152-7683 Protein: Using Current wt Protein g/k.2-2.0 Protein Calculated 67-80 Fluid: ml 6666-1310 ML (3-40 ML/KG) Nutritional Problem 1. Problem Problem INCREASED KCAL AND PROTEIN NEEDS Etiology R/T INCREASED METABOLISM Signs/Symptoms: AEB SEPSIS AND RT HIP ABCESS Malnutrition Related to Morbid Obesity Malnutrition related to morbid obesity No Intervention/Recommendation Comments CONSIDER TF: TWOCAL HN @40ML/HR X 24HRS THIS WILL PROVIDE 1920 KCALS, 80G PRO, AND 672ML FREE WATER TO MEET AN ESTIMATED 100% KCAL AND 100% PRO NEEDS TO PROMOTE WOUND HEALING. Expected Outcomes/Goals Expected Outcomes/Goals 1. MONITOR ENTERAL FORMULA TOLERANCE. 2. MONITOR WT, NUTRITION RELATED LABS AND SKIN INTEGRITY. 3. F/U HIGH RISK IN 2-3 DAYS, 08/17-08/18
--- NOTE | 2018-08-19 13:45 | Diagnostic Imaging Report ---
Upper GI (Limited) HISTORY: Gastrostomy tube placement The pulmonary operations research manager radiograph demonstrates residual contrast within nondilated large bowel. Water-soluble contrast was instilled through patient's gastrostomy tube. The exam demonstrates opacification of the gastric lumen with free flow of contrast into the small bowel. IMPRESSION: 1. Confirmation of gastrostomy tube within the gastric lumen.
[2018-08-19] MEDS ORDERED: Diatrizoate Meglumine/Diatri 30 mL Sol PO ONE (15:17)
--- NOTE | 2018-08-19 17:24 | Operative Report ---
DATE OF SURGERY: 08/19/2018 PROCEDURE: G-tube replacement. DESCRIPTION OF PROCEDURE AND FINDINGS: The procedure took place at the bedside of the medical surgical unit of [facility]. The existing replacement G-tube was noted to be in position, but its inner balloon had not been inflated, the G-tube tip was removed and then reinserted via the same fistula site into the stomach. Its inner balloon tip was inflated using 20 mL of sterile water. Overlying dressing was placed. The water flushes were tolerated well. The patient tolerated the procedure well and no complications are anticipated. RECOMMENDATIONS: 1. We will confirm placement of the G-tube in the stomach by Gastrografin KUB. 2. Once the placement is confirmed, then may use G-tube for water flushes and medications and feedings as tolerated. 3. G-tube care. 4. Abdominal wall binder to prevent the patient from pulling out his own G-tube. Thank you, Dr. Lamine Hinton for involving us in the care of your patient. If you have any further questions, please call us. [facility]# [phone]
--- NOTE | 2018-08-19 17:49 | Infectious Disease Prog Note ---
Infectious Disease Subjective - Review of Systems Subjective: cc hip osteo hpi- wound cx now growing kleb s all except bactrim , underwent endoscopy by gi dr zahraa mckoy no efrv o,e 08/16/18 16:20 (created 08/16/18 17:31) Wound Care Notes by Ricardo Carvalho Dr. Arrived For Right Hip Abscess Surgical Consult: Late note for 1620 secondary to patient care. Dr. Castanon Evaluated Right Hip Abscess, orders were given to the attending nurse. Initialized on 08/16/18 17:31 - END OF NOTE 08/16/18 12:33 Wound Care Notes by Ricardo Carvalho Addendum entered by Ricardo Carvalho 08/16/18 12:49: Error, incomplete note. Please refer to complete note at 1230. Original Note: Wound Evaluation: Wound Consult received from Dr. Hinton. Thank you, Dr. Hinton, for the consult. Patient received in a [place] bed, awake, alert, non-verbal, non-responsive to verbal commands. Patient is unable to turn in bed independently. Abena score is an 11. Past Medical History: Cerebral palsy, chronic respiratory failure, previous tracheostomy, diabetes mellitus, dysphagia, seizure disorder, Recent labs: WBC 7.6, RBC 4.77, hemoglobin 14.7, hematocrit 43.6, weight is 118 , potassium 3.2, BUN 6, creatinine 0.5, glucose 118, calcium 8.5, BNP 128.0, albumin < 1.5. Intrinsic factors that delay wound healing: Extrinsic factors that delay wound healing: Decreased mobility. Wound Assessment: 1): Wound bed is . Mery-wound intact. Measures cm x cm x cm. Recommend: Cleanse wound with normal Saline. Put moisture barrier cream onto mery-wound. Put onto wound bed. Cover with foam dressing. Perform wound care daily, and as needed for dressing soiling or dislodgment. Also recommend: Encourage and assist patient as needed with repositioning every two hours with pillow support, and off-load pressure areas with pillows for pressure re-distribution. Offload, elevate and float heel with pillows. Perform skin care and monitor skin integrity q shift. Use moisture barrier cream on buttocks, and other moisture susceptible areas qid and as needed for soiling. Place patient on a low air-loss mattress. Initialized on 08/16/18 12:33 - END OF NOTE 08/16/18 12:30 (created 08/16/18 12:39) Wound Care Notes by Ricardo Carvalho Addendum entered by Ricardo Carvalho 08/16/18 12:50: Addendum: Recommend surgical consult for right lateral hip abscess, which has erythema, calor, edema, induration, purulent drainage, and undermining. Original Note: Wound Evaluation: Late note for 1230 secondary to patient care. Wound Consult received from Dr. Hinton. Thank you, Dr. Hinton, for the consult. Patient received in a [place] bed, awake, alert, non-verbal, non-responsive to verbal commands. Patient is unable to turn in bed independently. Abena score is an 11. Past Medical History: Cerebral Palsy, Chronic Respiratory Failure, previous Tracheostomy, Diabetes Mellitus, Dysphagia, Seizure disorder. Recent labs: WBC 7.6, RBC 4.77, hemoglobin 14.7, hematocrit 43.6, weight is 118, potassium 3.2, BUN 6, creatinine 0.5, glucose 118, calcium 8.5, BNP 128.0, albumin < 1.5. Intrinsic factors that delay wound healing: Chronic Respiratory Failure, Diabetes Mellitus. Extrinsic factors that delay wound healing: Immobility. Wound Assessment: 1 Right Lateral Hip near Iliac Crest: Abscess, present on admission. Wound bed has 100% yellow slough. No odor, moderate yellow purulent drainage. Small sanguineous drainage post milking of wound. Periwound is erythematous. Surrounding tissue has erythema, calor, edema , induration. Undermining present from 12-3 o'clock (2.0 cm at 12:00; 3.0 cm at 3:00). Recommend: Cleanse wound with normal Saline. Apply moisture barrier cream to mery-wound. Apply Hydrogel to wound bed, then Silvasorb Gel. Pack wound with 1/ 4 inch Iodoform packing strip. Cover with 6x6 foam dressing. Perform wound care daily, and as needed for dressing soiling or dislodgment. 2. Bilateral heels: Blanchable erythema, present on admission. Recommend: Offload, elevate and float bilateral heels with one pillow lengthwise under each extremity at all times. Also recommend: Encourage and assist patient as needed with repositioning every two hours with pillow support, and off-load pressure areas with pillows for pressure re-distribution. Offload, elevate and float bilateral heels with one pillow lengthwise under each extremity at all times. Perform skin care and monitor skin integrity q shift. Use moisture barrier cream on buttocks, and other moisture susceptible areas qid and as needed for soiling. Place patient on a low air-loss mattress. Initialized on 08/16/18 12:39 - END OF NOTE Vital Signs - 24 hr 08/17/18 08/17/18 08/17/18 16:00 17:00 19:00 Temp 97.8 F 97.5 F HR 74 76 RR 18 18 18 BP 98/61 95/62 O2 Sat % 96 08/17/18 08/17/18 08/17/18 19:30 20:00 21:00 Temp 97.5 F 98 F HR 78 76 80 RR 18 18 18 BP 95/62 97/70 O2 Sat % 97 97 08/18/18 08/18/18 08/18/18 00:00 04:00 07:30 Temp 97.7 F 97.8 F HR 67 72 71 RR 18 18 18 BP 99/65 97/61 O2 Sat % 97 99 96 08/18/18 08/18/18 08/18/18 08:00 09:00 11:51 Temp 97.3 F 97.3 F 97.3 F HR 75 75 70 RR 18 18 18 BP 118/58 118/58 105/57 O2 Sat % 98 100 08/18/18 08/18/18 12:00 13:00 Temp 97.3 F HR 70 RR 18 18 BP 105/57 O2 Sat % Procedures CHANGE FEEDING DEVICE IN UP INTEST TRACT, IMMIGRATION COORDINATOR APPROACH (05/30/17) Diagnoses SEPSIS, UNSPECIFIED ORGANISM (08/14/18) ELEVATED WHITE BLOOD CELL COUNT, UNSPECIFIED (08/14/18) TYPE 2 DIABETES MELLITUS WITHOUT COMPLICATIONS (08/14/18) HYPO-OSMOLALITY AND HYPONATREMIA (08/14/18) CEREBRAL PALSY, UNSPECIFIED (08/14/18) HYPOTENSION, UNSPECIFIED (08/14/18) CUTANEOUS ABSCESS OF RIGHT LOWER LIMB (08/14/18) WEAKNESS (08/14/18) UNSPECIFIED CONVULSIONS (08/14/18) GASTROSTOMY STATUS (08/14/18) Current Medications Acetaminophen (Tylenol) 650 mg PO Q4H PRN PRN Reason: Pain Or Fever above 101 Stop: 10/13/18 23:07 Last Admin: 08/15/18 20:42 Dose: 650 mg Acetaminophen/Hydrocodone Bitart ([place] 5mg/325mg) 1 tab GT Q4H PRN PRN Reason: mild pain Stop: 10/15/18 16:00 Last Admin: 08/16/18 16:40 Dose: 1 tab Acetaminophen/Hydrocodone Bitart ([place] 10 Mg/325 Mg) 1 tab GT Q4H PRN PRN Reason: mod-severe pain Stop: 10/15/18 16:01 Albuterol Sulfate (Albuterol 2.5mg/3ml Neb Ud) 2.5 mg HHN Q2HRT PRN PRN Reason: Shortness of Breath or Wheeze Stop: 10/13/18 23:10 Docusate Sodium (Colace) 100 mg GT BID [facility] Stop: 10/14/18 08:59 Last Admin: 08/18/18 08:32 Dose: 100 mg Famotidine (Pepcid) 20 mg GT DAILY [facility] Stop: 10/14/18 08:59 Last Admin: 08/18/18 08:32 Dose: 20 mg Sodium Chloride (Nacl 0.9%) 1,000 mls @ 80 mls/hr IV .[id number] [facility] Stop: 10/13/18 23:14 Last Admin: 08/18/18 08:33 Dose: 80 mls/hr Piperacillin Sod/Tazobactam (Sod 4.5 gm/ Sodium Chloride) 100 mls @ 100 mls/hr IV Q8HR [facility] Stop: 10/14/18 04:59 Last Admin: 08/18/18 12:00 Dose: 100 mls/hr Vancomycin HCl 1 gm/ Sodium (Chloride) 250 mls @ 165 mls/hr IV Q8H [facility] Stop: 10/16/18 10:59 Last Admin: 08/18/18 10:00 Dose: 165 mls/hr Ipratropium [place] (Atrovent Neb 0.5mg/2.5ml) 0.5 mg HHN Q2HRT PRN PRN Reason: Shortness of Breath or Wheeze Stop: 10/13/18 23:10 Lactobacillus Rhamnosus (Culturelle 15b) 1 each PO DAILY [facility] Stop: 10/16/18 08:59 Last Admin: 08/18/18 08:32 Dose: 1 each Levetiracetam (Keppra) 500 mg PO BID [facility] Stop: 10/14/18 08:59 Last Admin: 08/18/18 08:32 Dose: 500 mg Lorazepam (Ativan) 1 mg IV Q4H PRN; Protocol PRN Reason: Seizure Stop: 10/13/18 23:10 Magnesium Hydroxide (Milk Of Magnesia) 30 ml GT HS PRN PRN Reason: Constipation Stop: 10/13/18 23:07 Midodrine (Proamatine) 5 mg PO TID [facility] Stop: 10/14/18 13:59 Last Admin: 08/18/18 13:13 Dose: Not Given Miscellaneous (Dextrose 10% [Dextrose 10%]) 250 ml IV PRN PRN PRN Reason: IF GLUCAGON INEFFECTIVE Miscellaneous (Vancomycin Iv Per Pharmacy) 1 ea MC PRN [facility] Stop: 10/13/18 23:14 Miscellaneous (Probiotic Screen) 1 ea MC PRN PRN PRN Reason: PROTOCOL Stop: 10/15/18 15:03 Nitroglycerin (Nitrostat) 0.4 mg SL Q5MIN PRN PRN Reason: CHEST PAIN X3 Stop: 10/13/18 23:07 Ondansetron HCl (Zofran) 4 mg IV Q8H PRN PRN Reason: Nausea / Vomiting Stop: 10/13/18 23:10 Wound Care/Dressing Products (Silvasorb) 1 appl TP DAILY [facility] Stop: 10/16/18 08:59 Last Admin: 08/18/18 08:29 Dose: Not Given Infectious Disease Objective - Results Result Diagrams: 08/19/18 04:15 08/19/18 04:15 Recent Labs: Laboratory Last Values WBC 6.1 Th/cmm (4.8-10.8) 08/19/18 04:15 RBC 4.73 Mil/cmm (4.30-5.70) 08/19/18 04:15 Hgb 14.6 gm/dL (12-16) 08/19/18 04:15 Hct 43.2 % (41.0-60) 08/19/18 04:15 MCV 91.4 fl (80-99) 08/19/18 04:15 MCH 30.8 pg (26.0-30.0) H 08/19/18 04:15 MCHC Differential 33.7 pg (28.0-36.0) 08/19/18 04:15 RDW 12.3 % (11.5-20.0) 08/19/18 04:15 Plt Count 174 Th/cmm (150-400) 08/19/18 04:15 MPV 10.3 fl 08/19/18 04:15 Add Manual Diff YES 08/14/18 20:00 Neutrophils % 59.9 % (40.0-80.0) 08/19/18 04:15 Band Neutrophils % 4 % (0-10) 08/14/18 20:00 Lymphocytes % 22.5 % (20.0-50.0) 08/19/18 04:15 Monocytes % 13.4 % (2.0-10.0) H 08/19/18 04:15 Eosinophils % 3.3 % (0.0-5.0) 08/19/18 04:15 Basophils % 0.9 % (0.0-2.0) 08/19/18 04:15 Neutrophils (Manual) 79 % (40-80) 08/14/18 20:00 Lymphocytes 8 % (20-50) L 08/14/18 20:00 Monocytes 9 % (2-10) 08/14/18 20:00 Platelet Estimate DECREASED PLATELETS (NORMAL) 08/14/18 20:00 Sodium 135 mEq/L (136-145) L 08/19/18 04:15 Potassium 3.8 mEq/L (3.5-5.1) 08/19/18 04:15 Chloride 100 mEq/L (98-107) 08/19/18 04:15 Carbon Dioxide 26.9 mEq/L (21.0-31.0) 08/19/18 04:15 Anion Gap 11.9 (7.0-16.0) 08/19/18 04:15 BUN 8 mg/dL (7-25) 08/19/18 04:15 Creatinine 0.4 mg/dL (0.7-1.3) L 08/19/18 04:15 Est GFR ( Amer) > 60.0 ml/min (>90) 08/19/18 04:15 Est GFR (Non-Af Amer) > 60.0 ml/min 08/19/18 04:15 BUN/Creatinine Ratio 20.0 08/19/18 04:15 Glucose 85 mg/dL (70-105) 08/19/18 04:15 POC Glucose 96 MG/DL (70 - 105) 08/14/18 22:06 Whole Bld Lactic Acid 1.34 mmol/L (0.60-1.99) 08/14/18 20:00 Calcium 9.2 mg/dL (8.6-10.3) 08/19/18 04:15 Magnesium 2.1 mg/dL (1.9-2.7) 08/19/18 04:15 Total Bilirubin 0.6 mg/dL (0.3-1.0) 08/14/18 20:00 AST 22 U/L (13-39) 08/14/18 20:00 ALT < 3 U/L (7-52) L 08/14/18 20:00 Alkaline Phosphatase 51 U/L (34-104) 08/14/18 20:00 Troponin I 0.02 ng/mL (0.01-0.05) 08/14/18 20:00 B-Natriuretic Peptide 11.2 pg/mL (5.0-100.0) 08/19/18 04:15 Total Protein 7.4 gm/dL (6.0-8.3) 08/14/18 20:00 Albumin < 1.5 gm/dL (4.2-5.5) L 08/14/18 20:00 Globulin 5.9 gm/dL 08/14/18 20:00 Albumin/Globulin Ratio 0.3 (1.0-1.8) L 08/14/18 20:00 TSH 1.42 uIU/ml (0.34-5.60) 08/16/18 05:06 Urine Source CLEAN C 08/14/18 17:40 Urine Color YELLOW 08/14/18 17:40 Urine Clarity CLEAR (CLEAR) 08/14/18 17:40 Urine pH 5.5 (4.6 - 8.0) 08/14/18 17:40 Ur Specific [place] 1.015 (1.005-1.030) 08/14/18 17:40 Urine Protein NEGATIVE mg/dL (NEGATIVE) 08/14/18 17:40 Urine Glucose (UA) NEGATIVE mg/dL (NEGATIVE) 08/14/18 17:40 Urine Ketones 40 mg/dL (NEGATIVE) H 08/14/18 17:40 Urine Blood NEGATIVE (NEGATIVE) 08/14/18 17:40 Urine Nitrate NEGATIVE (NEGATIVE) 08/14/18 17:40 Urine Bilirubin NEGATIVE (NEGATIVE) 08/14/18 17:40 Urine Urobilinogen 0.2 E.U./dL (0.2 - 1.0) 08/14/18 17:40 Ur Leukocyte Esterase NEGATIVE (NEGATIVE) 08/14/18 17:40 Urine RBC 0-2 /hpf (0-5) H 08/14/18 17:40 Urine WBC 0-2 /hpf (0-5) 08/14/18 17:40 Ur Epithelial Cells FEW /lpf (FEW) 08/14/18 17:40 Urine Bacteria FEW /hpf (NONE SEEN) 08/14/18 17:40 Urine Mucus FEW /lpf (FEW) 08/14/18 17:40 Vancomycin Trough 21.4 ug/mL (5-10) H 08/19/18 10:00 - Physical Exam Vitals and I&O: Vital Signs Temp 97.9 F 08/19/18 11:46 Pulse 61 08/19/18 11:46 Resp 18 08/19/18 17:00 BP 99/67 08/19/18 11:46 Pulse Ox 100 08/19/18 11:46 Intake & Output 08/18/18 08/19/18 08/19/18 18:59 06:59 18:59 Intake Total 2200 1701.333 100 Balance 2200 1701.333 100 Weight (lbs) 60.781 kg 60.781 kg Intake: Intake, IV Amount 1350 1701.333 100 Piperacillin Sodium/ 100 200 100 Tazobact 4.5 gm In Sodium Chloride 0.9% 100 ml @ 100 mls/hr IV Q8HR [facility] Rx #:[id number] Sodium Chloride 0.9% 1, 1000 1001.333 000 ml @ 80 mls/hr IV . [id number] [facility] Rx#:[id number] Vancomycin HCl 1 gm In 250 500 Sodium Chloride 0.9% 250 ml @ 165 mls/hr IV Q8H [facility] Rx#:[id number] Tube Feeding 850 Other: # Voids 2 # Bowel Movements 1 Stool Characteristics Soft Soft Soft Weight Source Bedscale Bedscale Active Medications: Current Medications Acetaminophen (Tylenol) 650 mg PO Q4H PRN PRN Reason: Pain Or Fever above 101 Stop: 10/13/18 23:07 Last Admin: 08/15/18 20:42 Dose: 650 mg Acetaminophen/Hydrocodone Bitart ([place] 5mg/325mg) 1 tab GT Q4H PRN PRN Reason: mild pain Stop: 10/15/18 16:00 Last Admin: 08/16/18 16:40 Dose: 1 tab Acetaminophen/Hydrocodone Bitart ([place] 10 Mg/325 Mg) 1 tab GT Q4H PRN PRN Reason: mod-severe pain Stop: 10/15/18 16:01 Albuterol Sulfate (Albuterol 2.5mg/3ml Neb Ud) 2.5 mg HHN Q2HRT PRN PRN Reason: Shortness of Breath or Wheeze Stop: 10/13/18 23:10 Docusate Sodium (Colace) 100 mg GT BID [facility] Stop: 10/14/18 08:59 Last Admin: 08/19/18 16:20 Dose: 100 mg Famotidine (Pepcid) 20 mg GT DAILY [facility] Stop: 10/14/18 08:59 Last Admin: 08/19/18 09:11 Dose: Not Given Sodium Chloride (Nacl 0.9%) 1,000 mls @ 80 mls/hr IV .[id number] [facility] Stop: 10/13/18 23:14 Last Admin: 08/19/18 05:08 Dose: 80 mls/hr Piperacillin Sod/Tazobactam (Sod 4.5 gm/ Sodium Chloride) 100 mls @ 100 mls/hr IV Q8HR [facility] Stop: 10/14/18 04:59 Last Infusion: 08/19/18 14:41 Dose: Infused Vancomycin HCl 1 gm/ Sodium (Chloride) 250 mls @ 165 mls/hr IV Q8H [facility] Stop: 10/18/18 20:59 Ipratropium [place] (Atrovent Neb 0.5mg/2.5ml) 0.5 mg HHN Q2HRT PRN PRN Reason: Shortness of Breath or Wheeze Stop: 10/13/18 23:10 Lactobacillus Rhamnosus (Culturelle 15b) 1 each PO DAILY [facility] Stop: 10/16/18 08:59 Last Admin: 08/19/18 09:11 Dose: Not Given Levetiracetam (Keppra) 500 mg PO BID [facility] Stop: 10/14/18 08:59 Last Admin: 08/19/18 16:20 Dose: 500 mg Lorazepam (Ativan) 1 mg IV Q4H PRN; Protocol PRN Reason: Seizure Stop: 10/13/18 23:10 Magnesium Hydroxide (Milk Of Magnesia) 30 ml GT HS PRN PRN Reason: Constipation Stop: 10/13/18 23:07 Midodrine (Proamatine) 5 mg PO TID [facility] Stop: 10/14/18 13:59 Last Admin: 08/19/18 14:14 Dose: 5 mg Miscellaneous (Dextrose 10% [Dextrose 10%]) 250 ml IV PRN PRN PRN Reason: IF GLUCAGON INEFFECTIVE Miscellaneous (Vancomycin Iv Per Pharmacy) 1 ea MC PRN [facility] Stop: 10/13/18 23:14 Miscellaneous (Probiotic Screen) 1 ea MC PRN PRN PRN Reason: PROTOCOL Stop: 10/15/18 15:03 Nitroglycerin (Nitrostat) 0.4 mg SL Q5MIN PRN PRN Reason: CHEST PAIN X3 Stop: 10/13/18 23:07 Ondansetron HCl (Zofran) 4 mg IV Q8H PRN PRN Reason: Nausea / Vomiting Stop: 10/13/18 23:10 Wound Care/Dressing Products (Silvasorb) 1 appl TP DAILY [facility] Stop: 10/16/18 08:59 Last Admin: 08/19/18 09:58 Dose: Not Given - Procedures Procedures: Procedures Procedure Code Date CHANGE FEEDING DEVICE IN UP INTEST TRACT, IMMIGRATION COORDINATOR APPROACH [id number] 05/30/17 Infectious Disease Assmt/Plan - Plan Plan: vanco iv po levaquin till 09/19/18 Nutritional Asmnt/Malnutr-PDOC - Dietary Evaluation Malnutrition Findings (Please click <Entered> for more info): Nutritional Asmnt/Malnutrition Start: 08/15/18 13: 57 Text: Status: Active Freq: Protocol: Document 08/15/18 13:58 GREG (Rec: 08/15/18 14:02 GREG [id number]) Nutritional Asmnt/Malnutrition Patient General Information Nutritional Screening High Risk Diagnosis SEPSIS, RT HIP ABCESS Pertinent Medical Hx/Surgical Hx QUADRAPLEGIC, CP INFARCT SEIZURES Subjective Information HIGH RISK, CONSULT: ABENA Melgar PT IS A 33 YEAR OLD MALE ADMITTED ON 08/14 C/O RT HIP ABCESS. PT IS QUADRAPLEGIC. PT HAS POSITIVE SCREEN FOR SEVERE SEPSIS OR SEPTIC SHOCK. HT: 57 WT: 134 LB (60.91KG) BMI: 20.99 (NORMAL) GI: WNL, SOFT, LARGE BM: NOT NOTED I/O: 200/3 (+197) SKIN: PALE, WARM, MOIST, ELASTIC WOUNDS: RT HIP INFECTED ABCESS ABENA: 11 DIET ORDER: NUTREN 2.0 4 CARTONS Q4HRS(3MN-9TO-8UE-9PM) ESTIMATED ENERGY NEEDS: ( QUADRIPLEGIA, SEPSIS, CBW) 3461-3090 KCALS (30-35 KCALS/ KG) 67-80 G PRO (1.2-2.0 G/KG) 7175-8411 ML (3-40 ML/KG) CONSIDER THE FOLLOWING: TWOCAL HN @40ML/HR X 24HRS THIS WILL PROVIDE 1920 KCALS, 80G PRO, AND 672ML FREE WATER TO MEET AN ESTIMATED 100% KCAL AND 100% PRO NEEDS TO PROMOTE WOUND HEALING. Current Diet Order/ Nutrition Support NUTREN 2.0 4 CARTONS Q4HRS(9AM -1PM-5PM-9PM) Pertinent Medications ALBUTEROL (PRN), COLACE, PEPCID, MOM (PRN), NITROSTAT, ZOFRAN (PRN), NACL 0.9% 1000ML @80ML/HR IV Q12H 30M [facility] Pertinent Labs 08/14: WBC 16.3, NA 131, CR 0.6, GLUC 120, ALT <3, ALB <1.5 Nutritional Hx/Data Height 1.7 m Height (Calculated Centimeters) 170.2 Current Weight (lbs) 60.781 kg Weight (Calculated Kilograms) 60.8 Weight (Calculated Grams) 32108.4 [place] Body Weight 133 % [place] Body Weight 101 Body Mass Index (BMI) 20.9 Weight Status Approriate GI Symptoms Last BM NOT NOTED Usual diet at home NUTREN 2.0 4 CARTONS Q4HRS(9AM -1PM-5PM-9PM) Skin Integrity/Comment: RT HIP INFECTED ABCESS Estimated Nutritional Goals BEE in Kcals: Using Current wt Calories/Kcals/Kg 30-35 Kcals Calculated 2905-7628 Protein: Using Current wt Protein g/k.2-2.0 Protein Calculated 67-80 Fluid: ml 7095-2642 ML (3-40 ML/KG) Nutritional Problem 1. Problem Problem INCREASED KCAL AND PROTEIN NEEDS Etiology R/T INCREASED METABOLISM Signs/Symptoms: AEB SEPSIS AND RT HIP ABCESS Malnutrition Related to Morbid Obesity Malnutrition related to morbid obesity No Intervention/Recommendation Comments CONSIDER TF: TWOCAL HN @40ML/HR X 24HRS THIS WILL PROVIDE 1920 KCALS, 80G PRO, AND 672ML FREE WATER TO MEET AN ESTIMATED 100% KCAL AND 100% PRO NEEDS TO PROMOTE WOUND HEALING. Expected Outcomes/Goals Expected Outcomes/Goals 1. MONITOR ENTERAL FORMULA TOLERANCE. 2. MONITOR WT, NUTRITION RELATED LABS AND SKIN INTEGRITY. 3. F/U HIGH RISK IN 2-3 DAYS, 08/17-08/18
--- NOTE | 2018-08-20 01:26 | Consultation ---
DATE OF CONSULTATION: 08/19/2018 GASTROENTEROLOGY CONSULTATION REQUESTING PHYSICIAN: Dr. Lamine Hinton. REASON FOR CONSULTATION: G-tube displacement. HISTORY OF PRESENT ILLNESS: A 33-year-old male with a history of dysphagia, previous G-tube insertion, cerebral palsy, respiratory insufficiency and previous tracheostomy now removed, diabetes mellitus and seizure disorder. The patient was admitted for a wound in his right hip that required incision and drainage. During this admission, his G-tube fell out. It was replaced by the nursing staff with an 18-[place]ag[place] replacement G-tube and placement confirmed by x-ray. The patient pulled out his G-tube again overnight and we were asked to reevaluate the patient. PAST MEDICAL HISTORY: As above. PAST SURGICAL HISTORY: Tracheostomy, G-tube insertion, looks like the trach has been removed now. MEDICATIONS HERE ARE: [place] p.r.n., albuterol p.r.n., Colace, Pepcid, Atrovent p.r.n., Keppra, Culturelle, Ativan p.r.n., milk of magnesia p.r.n., ProAmatine, IV vancomycin, Zofran p.r.n., Zosyn. SOCIAL HISTORY: No recent tobacco, alcohol or drugs. ALLERGIES: No known drug allergies. FAMILY HISTORY: Noncontributory. REVIEW OF SYSTEMS: Negative. PHYSICAL EXAMINATION: VITAL SIGNS: Temperature of 97.9, blood pressure is 99/67, pulse of 61, respirations are 18, O2 sat 100% on 2 liters O2 nasal cannula. GENERAL: The patient is a well-developed, chronically ill-appearing male who is nonverbal, in no acute distress. HEENT: Sclerae nonicteric. Oropharynx is clear. CARDIOVASCULAR: Regular rate and rhythm. LUNGS: Clear to auscultation bilaterally. ABDOMEN: Soft, nontender, nondistended. There is an intact replacement type G-tube in the epigastrium with overlying dressing. EXTREMITIES: No clubbing, cyanosis or edema. RECTAL: Deferred. LABORATORY DATA AND IMAGING: WBC is 6.1, hemoglobin 14.6, platelet count 174, creatinine 0.4. IMPRESSION: 1. Dysphagia with G-tube displacement requiring replacement. 2. Encephalopathy with cerebral palsy and seizure disorder. 3. Right hip abscess requiring drainage. RECOMMENDATIONS: 1. G-tube replacement to take place and dictation to follow. 2. Further recommendations following G-tube replacement. Thank you, Dr. Lamine Hinton for involving us in the care of your patient. If you have any further questions, please call us. JOB# [id number]
[2018-08-20] MEDS: Docusate Sodium 100 mg/10 mL UD GT SCH ×2 (09:23→17:40)
[2018-08-20] MEDS: Lactobacillus Rhamnosus GG 15 Billion CFU CAP.SPRINK PO SCH (09:23)
[2018-08-20] MEDS: Silver Antimicrobial Wound Gel 0.25 oz Tube TP SCH (09:23)
--- NOTE | 2018-08-20 12:31 | Internal Medicine Prog Note ---
Internal Medicine Subjective - Subjective Patient seen and examined:: with staff, chart reviewed Patient is:: asleep, non-verbal, non-interactive, eyes closed, agitated, congested Patient Complaints of:: congestion Per staff patient has:: no adverse event, no episodes of fall, tolerating meds Internal Medicine Objective - Results Result Diagrams: 08/19/18 04:15 08/19/18 04:15 Recent Labs: Laboratory Last Values WBC 6.1 Th/cmm (4.8-10.8) 08/19/18 04:15 RBC 4.73 Mil/cmm (4.30-5.70) 08/19/18 04:15 Hgb 14.6 gm/dL (12-16) 08/19/18 04:15 Hct 43.2 % (41.0-60) 08/19/18 04:15 MCV 91.4 fl (80-99) 08/19/18 04:15 MCH 30.8 pg (26.0-30.0) H 08/19/18 04:15 MCHC Differential 33.7 pg (28.0-36.0) 08/19/18 04:15 RDW 12.3 % (11.5-20.0) 08/19/18 04:15 Plt Count 174 Th/cmm (150-400) 08/19/18 04:15 MPV 10.3 fl 08/19/18 04:15 Add Manual Diff YES 08/14/18 20:00 Neutrophils % 59.9 % (40.0-80.0) 08/19/18 04:15 Band Neutrophils % 4 % (0-10) 08/14/18 20:00 Lymphocytes % 22.5 % (20.0-50.0) 08/19/18 04:15 Monocytes % 13.4 % (2.0-10.0) H 08/19/18 04:15 Eosinophils % 3.3 % (0.0-5.0) 08/19/18 04:15 Basophils % 0.9 % (0.0-2.0) 08/19/18 04:15 Neutrophils (Manual) 79 % (40-80) 08/14/18 20:00 Lymphocytes 8 % (20-50) L 08/14/18 20:00 Monocytes 9 % (2-10) 08/14/18 20:00 Platelet Estimate DECREASED PLATELETS (NORMAL) 08/14/18 20:00 Sodium 135 mEq/L (136-145) L 08/19/18 04:15 Potassium 3.8 mEq/L (3.5-5.1) 08/19/18 04:15 Chloride 100 mEq/L (98-107) 08/19/18 04:15 Carbon Dioxide 26.9 mEq/L (21.0-31.0) 08/19/18 04:15 Anion Gap 11.9 (7.0-16.0) 08/19/18 04:15 BUN 8 mg/dL (7-25) 08/19/18 04:15 Creatinine 0.4 mg/dL (0.7-1.3) L 08/19/18 04:15 Est GFR ( Amer) > 60.0 ml/min (>90) 08/19/18 04:15 Est GFR (Non-Af Amer) > 60.0 ml/min 08/19/18 04:15 BUN/Creatinine Ratio 20.0 08/19/18 04:15 Glucose 85 mg/dL (70-105) 08/19/18 04:15 POC Glucose 96 MG/DL (70 - 105) 08/14/18 22:06 Whole Bld Lactic Acid 1.34 mmol/L (0.60-1.99) 08/14/18 20:00 Calcium 9.2 mg/dL (8.6-10.3) 08/19/18 04:15 Magnesium 2.1 mg/dL (1.9-2.7) 08/19/18 04:15 Total Bilirubin 0.6 mg/dL (0.3-1.0) 08/14/18 20:00 AST 22 U/L (13-39) 08/14/18 20:00 ALT < 3 U/L (7-52) L 08/14/18 20:00 Alkaline Phosphatase 51 U/L (34-104) 08/14/18 20:00 Troponin I 0.02 ng/mL (0.01-0.05) 08/14/18 20:00 B-Natriuretic Peptide 11.2 pg/mL (5.0-100.0) 08/19/18 04:15 Total Protein 7.4 gm/dL (6.0-8.3) 08/14/18 20:00 Albumin < 1.5 gm/dL (4.2-5.5) L 08/14/18 20:00 Globulin 5.9 gm/dL 08/14/18 20:00 Albumin/Globulin Ratio 0.3 (1.0-1.8) L 08/14/18 20:00 TSH 1.42 uIU/ml (0.34-5.60) 08/16/18 05:06 Urine Source CLEAN C 08/14/18 17:40 Urine Color YELLOW 08/14/18 17:40 Urine Clarity CLEAR (CLEAR) 08/14/18 17:40 Urine pH 5.5 (4.6 - 8.0) 08/14/18 17:40 Ur Specific [place] 1.015 (1.005-1.030) 08/14/18 17:40 Urine Protein NEGATIVE mg/dL (NEGATIVE) 08/14/18 17:40 Urine Glucose (UA) NEGATIVE mg/dL (NEGATIVE) 08/14/18 17:40 Urine Ketones 40 mg/dL (NEGATIVE) H 08/14/18 17:40 Urine Blood NEGATIVE (NEGATIVE) 08/14/18 17:40 Urine Nitrate NEGATIVE (NEGATIVE) 08/14/18 17:40 Urine Bilirubin NEGATIVE (NEGATIVE) 08/14/18 17:40 Urine Urobilinogen 0.2 E.U./dL (0.2 - 1.0) 08/14/18 17:40 Ur Leukocyte Esterase NEGATIVE (NEGATIVE) 08/14/18 17:40 Urine RBC 0-2 /hpf (0-5) H 08/14/18 17:40 Urine WBC 0-2 /hpf (0-5) 08/14/18 17:40 Ur Epithelial Cells FEW /lpf (FEW) 08/14/18 17:40 Urine Bacteria FEW /hpf (NONE SEEN) 08/14/18 17:40 Urine Mucus FEW /lpf (FEW) 08/14/18 17:40 Vancomycin Trough 21.4 ug/mL (5-10) H 08/19/18 10:00 - Physical Exam Vitals and I&O: Vital Signs Temp 97.7 F 08/20/18 11:58 Pulse 63 08/20/18 11:58 Resp 18 08/20/18 11:58 BP 109/53 08/20/18 11:58 Pulse Ox 99 08/20/18 11:58 Intake & Output 08/19/18 08/20/18 08/20/18 18:59 06:59 18:59 Intake Total 1100 930 250 Balance 1100 930 250 Weight (lbs) 60.781 kg 60.781 kg 60.781 kg Intake: Intake, IV Amount 1100 350 250 Piperacillin Sodium/ 100 100 Tazobact 4.5 gm In Sodium Chloride 0.9% 100 ml @ 100 mls/hr IV Q8HR [facility] Rx #:[id number] Sodium Chloride 0.9% 1, 1000 000 ml @ 80 mls/hr IV . [id number] [facility] Rx#:[id number] Vancomycin HCl 1 gm In 250 250 Sodium Chloride 0.9% 250 ml @ 165 mls/hr IV Q8H [facility] Rx#:[id number] Tube Feeding 280 Other 300 Other: # Voids 3 # Bowel Movements 2 Stool Characteristics Soft Soft Soft Weight Source Bedscale Bedscale Bedscale Active Medications: Current Medications Acetaminophen (Tylenol) 650 mg PO Q4H PRN PRN Reason: Pain Or Fever above 101 Stop: 10/13/18 23:07 Last Admin: 08/15/18 20:42 Dose: 650 mg Acetaminophen/Hydrocodone Bitart ([place] 5mg/325mg) 1 tab GT Q4H PRN PRN Reason: mild pain Stop: 10/15/18 16:00 Last Admin: 08/16/18 16:40 Dose: 1 tab Acetaminophen/Hydrocodone Bitart ([place] 10 Mg/325 Mg) 1 tab GT Q4H PRN PRN Reason: mod-severe pain Stop: 10/15/18 16:01 Albuterol Sulfate (Albuterol 2.5mg/3ml Neb Ud) 2.5 mg HHN Q2HRT PRN PRN Reason: Shortness of Breath or Wheeze Stop: 10/13/18 23:10 Docusate Sodium (Colace) 100 mg GT BID [facility] Stop: 10/14/18 08:59 Last Admin: 08/20/18 09:23 Dose: Not Given Famotidine (Pepcid) 20 mg GT DAILY [facility] Stop: 10/14/18 08:59 Last Admin: 08/20/18 09:23 Dose: 20 mg Sodium Chloride (Nacl 0.9%) 1,000 mls @ 80 mls/hr IV .[id number] [facility] Stop: 10/13/18 23:14 Last Admin: 08/19/18 21:34 Dose: 80 mls/hr Piperacillin Sod/Tazobactam (Sod 4.5 gm/ Sodium Chloride) 100 mls @ 100 mls/hr IV Q8HR [facility] Stop: 10/14/18 04:59 Last Admin: 08/20/18 04:44 Dose: 100 mls/hr Vancomycin HCl 1 gm/ Sodium (Chloride) 250 mls @ 165 mls/hr IV Q8H [facility] Stop: 10/18/18 20:59 Last Infusion: 08/20/18 07:00 Dose: Infused Ipratropium [place] (Atrovent Neb 0.5mg/2.5ml) 0.5 mg HHN Q2HRT PRN PRN Reason: Shortness of Breath or Wheeze Stop: 10/13/18 23:10 Lactobacillus Rhamnosus (Culturelle 15b) 1 each PO DAILY [facility] Stop: 10/16/18 08:59 Last Admin: 08/20/18 09:23 Dose: 1 each Levetiracetam (Keppra) 500 mg PO BID [facility] Stop: 10/14/18 08:59 Last Admin: 08/20/18 09:23 Dose: 500 mg Lorazepam (Ativan) 1 mg IV Q4H PRN; Protocol PRN Reason: Seizure Stop: 10/13/18 23:10 Magnesium Hydroxide (Milk Of Magnesia) 30 ml GT HS PRN PRN Reason: Constipation Stop: 10/13/18 23:07 Midodrine (Proamatine) 5 mg PO TID [facility] Stop: 10/14/18 13:59 Last Admin: 08/20/18 09:23 Dose: 5 mg Miscellaneous (Dextrose 10% [Dextrose 10%]) 250 ml IV PRN PRN PRN Reason: IF GLUCAGON INEFFECTIVE Miscellaneous (Vancomycin Iv Per Pharmacy) 1 ea MC PRN [facility] Stop: 10/13/18 23:14 Miscellaneous (Probiotic Screen) 1 ea MC PRN PRN PRN Reason: PROTOCOL Stop: 10/15/18 15:03 Nitroglycerin (Nitrostat) 0.4 mg SL Q5MIN PRN PRN Reason: CHEST PAIN X3 Stop: 10/13/18 23:07 Ondansetron HCl (Zofran) 4 mg IV Q8H PRN PRN Reason: Nausea / Vomiting Stop: 10/13/18 23:10 Wound Care/Dressing Products (Silvasorb) 1 appl TP DAILY [facility] Stop: 10/16/18 08:59 Last Admin: 08/20/18 09:23 Dose: Not Given General: congested, demented, vegetative state, bilateral temporal wasting, appears older HEENT: NC/AT, PERRLA Neck: Supple Lungs: congested, rales Cardiovascular: RRR, Normal S1, Normal S2 Abdomen: soft, thin, +GT, positive bowel sound Extremities: contracture, ulcers stage 2 Neurological: lethargic - Procedures Procedures: Procedures Procedure Code Date CHANGE FEEDING DEVICE IN UP INTEST TRACT, [employer]UX [employer]PERATOR APPROACH [id number] 05/30/17 DRAINAGE OF RIGHT HIP JOINT, OPEN APPROACH [id number] 08/14/18 Internal Medicine Assmt/Plan - Assessment Assessment: ASSESSMENT AND PLAN: Fever, sepsis, hypotension, right hip abscess, leukocytosis, diabetes, status post G-tube, hypertension, hypercholesterolemia, cerebral palsy, hyponatremia, seizure pulled gt - Plan Plan: PLAN: continue the patient on IV antibiotic on vancomycin and Zosyn. We will follow the patient's culture, including blood culture and wound culture. We will advance his drain. Continue IV hydration, will refer to sx gi consult Nutritional Asmnt/Malnutr-PDOC - Dietary Evaluation Malnutrition Findings (Please click <Entered> for more info): Nutritional Asmnt/Malnutrition Start: 08/15/18 13: 57 Text: Status: Active Freq: Protocol: Document 08/15/18 13:58 GREG (Rec: 08/15/18 14:02 GREG [email or web address]) Nutritional Asmnt/Malnutrition Patient General Information Nutritional Screening High Risk Diagnosis SEPSIS, RT HIP ABCESS Pertinent Medical Hx/Surgical Hx QUADRAPLEGIC, CP INFARCT SEIZURES Subjective Information HIGH RISK, CONSULT: ABENA Melgar PT IS A 33 YEAR OLD MALE ADMITTED ON 08/14 C/O RT HIP ABCESS. PT IS QUADRAPLEGIC. PT HAS POSITIVE SCREEN FOR SEVERE SEPSIS OR SEPTIC SHOCK. HT: 57 WT: 134 LB (60.91KG) BMI: 20.99 (NORMAL) GI: WNL, SOFT, LARGE BM: NOT NOTED I/O: 200/3 (+197) SKIN: PALE, WARM, MOIST, ELASTIC WOUNDS: RT HIP INFECTED ABCESS ABENA: 11 DIET ORDER: NUTREN 2.0 4 CARTONS Q4HRS([id number]-[id number]-9PM) ESTIMATED ENERGY NEEDS: ( QUADRIPLEGIA, SEPSIS, CBW) 2550-3551 KCALS (30-35 KCALS/ KG) 67-80 G PRO (1.2-2.0 G/KG) 3474-4696 ML (3-40 ML/KG) CONSIDER THE FOLLOWING: TWOCAL HN @40ML/HR X 24HRS THIS WILL PROVIDE 1920 KCALS, 80G PRO, AND 672ML FREE WATER TO MEET AN ESTIMATED 100% KCAL AND 100% PRO NEEDS TO PROMOTE WOUND HEALING. Current Diet Order/ Nutrition Support NUTREN 2.0 4 CARTONS Q4HRS(9AM -1PM-5PM-9PM) Pertinent Medications ALBUTEROL (PRN), COLACE, PEPCID, MOM (PRN), NITROSTAT, ZOFRAN (PRN), NACL 0.9% 1000ML @80ML/HR IV Q12H 30M [facility] Pertinent Labs 7/3: WBC 16.3, NA 131, CR 0.6, GLUC 120, ALT <3, ALB <1.5 Nutritional Hx/Data Height 1.7 m Height (Calculated Centimeters) 170.2 Current Weight (lbs) 60.781 kg Weight (Calculated Kilograms) 60.8 Weight (Calculated Grams) 44258.4 [place] Body Weight 133 % [place]elope Body Weight 101 Body Mass Index (BMI) 20.9 Weight Status Approriate GI Symptoms Last BM NOT NOTED Usual diet at home NUTREN 2.0 4 CARTONS Q4HRS(9AM -1PM-5PM-9PM) Skin Integrity/Comment: RT HIP INFECTED ABCESS Estimated Nutritional Goals BEE in Kcals: Using Current wt Calories/Kcals/Kg 30-35 Kcals Calculated 3282-5611 Protein: Using Current wt Protein g/k.2-2.0 Protein Calculated 67-80 Fluid: ml 5061-7124 ML (3-40 ML/KG) Nutritional Problem 1. Problem Problem INCREASED KCAL AND PROTEIN NEEDS Etiology R/T INCREASED METABOLISM Signs/Symptoms: AEB SEPSIS AND RT HIP ABCESS Malnutrition Related to Morbid Obesity Malnutrition related to morbid obesity No Intervention/Recommendation Comments CONSIDER TF: TWOCAL HN @40ML/HR X 24HRS THIS WILL PROVIDE 1920 KCALS, 80G PRO, AND 672ML FREE WATER TO MEET AN ESTIMATED 100% KCAL AND 100% PRO NEEDS TO PROMOTE WOUND HEALING. Expected Outcomes/Goals Expected Outcomes/Goals 1. MONITOR ENTERAL FORMULA TOLERANCE. 2. MONITOR WT, NUTRITION RELATED LABS AND SKIN INTEGRITY. 3. F/U HIGH RISK IN 2-3 DAYS, 08/17-08/18
[2018-08-20] MEDS: Sodium Chloride 0.9% 1,000 ML IV SCH (13:50)
[2018-08-20] MEDS ORDERED: Dextrose 10% 250 ML IV PRN (16:00)
[2018-08-20 17:03] LABS: INR 0.99 (0.5-1.4)
[2018-08-21] MEDS: Hydrocodone/APAP 5mg/325mg Tab GT PRN ×2 (03:21→20:13)
[2018-08-21 07:19] LABS: CREATININE - SERUM 0.5 mg/dL (0.7-1.3)
[2018-08-21] MEDS: Lactobacillus Rhamnosus GG 15 Billion CFU CAP.SPRINK PO SCH (08:34)
[2018-08-21] MEDS: Docusate Sodium 100 mg/10 mL UD GT SCH ×2 (08:34→16:16)
--- NOTE | 2018-08-21 09:11 | GI Progress Note ---
Subjective - Review of Systems Service Date: 08/21/18 Subjective: Tolerating GT feeds. GI OBJECTIVE - Results Result Diagrams: 08/19/18 04:15 08/21/18 06:30 Recent Labs: Laboratory Last Values WBC 6.1 Th/cmm (4.8-10.8) 08/19/18 04:15 RBC 4.73 Mil/cmm (4.30-5.70) 08/19/18 04:15 Hgb 14.6 gm/dL (12-16) 08/19/18 04:15 Hct 43.2 % (41.0-60) 08/19/18 04:15 MCV 91.4 fl (80-99) 08/19/18 04:15 MCH 30.8 pg (26.0-30.0) H 08/19/18 04:15 MCHC Differential 33.7 pg (28.0-36.0) 08/19/18 04:15 RDW 12.3 % (11.5-20.0) 08/19/18 04:15 Plt Count 174 Th/cmm (150-400) 08/19/18 04:15 MPV 10.3 fl 08/19/18 04:15 Add Manual Diff YES 08/14/18 20:00 Neutrophils % 59.9 % (40.0-80.0) 08/19/18 04:15 Band Neutrophils % 4 % (0-10) 08/14/18 20:00 Lymphocytes % 22.5 % (20.0-50.0) 08/19/18 04:15 Monocytes % 13.4 % (2.0-10.0) H 08/19/18 04:15 Eosinophils % 3.3 % (0.0-5.0) 08/19/18 04:15 Basophils % 0.9 % (0.0-2.0) 08/19/18 04:15 Neutrophils (Manual) 79 % (40-80) 08/14/18 20:00 Lymphocytes 8 % (20-50) L 08/14/18 20:00 Monocytes 9 % (2-10) 08/14/18 20:00 Platelet Estimate DECREASED PLATELETS (NORMAL) 08/14/18 20:00 PT 10.3 SECONDS (9.5-11.5) 08/20/18 16:45 INR 0.99 (0.5-1.4) 08/20/18 16:45 Sodium 135 mEq/L (136-145) L 08/19/18 04:15 Potassium 3.8 mEq/L (3.5-5.1) 08/19/18 04:15 Chloride 100 mEq/L (98-107) 08/19/18 04:15 Carbon Dioxide 26.9 mEq/L (21.0-31.0) 08/19/18 04:15 Anion Gap 11.9 (7.0-16.0) 08/19/18 04:15 BUN 8 mg/dL (7-25) 08/21/18 06:30 Creatinine 0.5 mg/dL (0.7-1.3) L 08/21/18 06:30 Est GFR ( Amer) > 60.0 ml/min (>90) 08/19/18 04:15 Est GFR (Non-Af Amer) > 60.0 ml/min 08/19/18 04:15 BUN/Creatinine Ratio 20.0 08/19/18 04:15 Glucose 85 mg/dL (70-105) 08/19/18 04:15 POC Glucose 96 MG/DL (70 - 105) 08/14/18 22:06 Whole Bld Lactic Acid 1.34 mmol/L (0.60-1.99) 08/14/18 20:00 Calcium 9.2 mg/dL (8.6-10.3) 08/19/18 04:15 Magnesium 2.1 mg/dL (1.9-2.7) 08/19/18 04:15 Total Bilirubin 0.6 mg/dL (0.3-1.0) 08/14/18 20:00 AST 22 U/L (13-39) 08/14/18 20:00 ALT < 3 U/L (7-52) L 08/14/18 20:00 Alkaline Phosphatase 51 U/L (34-104) 08/14/18 20:00 Troponin I 0.02 ng/mL (0.01-0.05) 08/14/18 20:00 B-Natriuretic Peptide 11.2 pg/mL (5.0-100.0) 08/19/18 04:15 Total Protein 7.4 gm/dL (6.0-8.3) 08/14/18 20:00 Albumin < 1.5 gm/dL (4.2-5.5) L 08/14/18 20:00 Globulin 5.9 gm/dL 08/14/18 20:00 Albumin/Globulin Ratio 0.3 (1.0-1.8) L 08/14/18 20:00 TSH 1.42 uIU/ml (0.34-5.60) 08/16/18 05:06 Urine Source CLEAN C 08/14/18 17:40 Urine Color YELLOW 08/14/18 17:40 Urine Clarity CLEAR (CLEAR) 08/14/18 17:40 Urine pH 5.5 (4.6 - 8.0) 08/14/18 17:40 Ur Specific [place] 1.015 (1.005-1.030) 08/14/18 17:40 Urine Protein NEGATIVE mg/dL (NEGATIVE) 08/14/18 17:40 Urine Glucose (UA) NEGATIVE mg/dL (NEGATIVE) 08/14/18 17:40 Urine Ketones 40 mg/dL (NEGATIVE) H 08/14/18 17:40 Urine Blood NEGATIVE (NEGATIVE) 08/14/18 17:40 Urine Nitrate NEGATIVE (NEGATIVE) 08/14/18 17:40 Urine Bilirubin NEGATIVE (NEGATIVE) 08/14/18 17:40 Urine Urobilinogen 0.2 E.U./dL (0.2 - 1.0) 08/14/18 17:40 Ur Leukocyte Esterase NEGATIVE (NEGATIVE) 08/14/18 17:40 Urine RBC 0-2 /hpf (0-5) H 08/14/18 17:40 Urine WBC 0-2 /hpf (0-5) 08/14/18 17:40 Ur Epithelial Cells FEW /lpf (FEW) 08/14/18 17:40 Urine Bacteria FEW /hpf (NONE SEEN) 08/14/18 17:40 Urine Mucus FEW /lpf (FEW) 08/14/18 17:40 Vancomycin Trough 18.3 ug/mL (5-10) H 08/21/18 06:30 - Physical Exam Vitals and I&O: Vital Signs Temp 98.8 F 08/21/18 08:00 Pulse 79 08/21/18 08:15 Resp 18 08/21/18 08:15 BP 90/60 08/21/18 08:00 Pulse Ox 97 08/21/18 08:15 Intake & Output 08/20/18 08/21/18 08/21/18 18:59 06:59 18:59 Intake Total 2380 1030 Balance 2380 1030 Weight (lbs) 60.781 kg 60.781 kg Intake: Intake, IV Amount 1600 350 Piperacillin Sodium/ 100 100 Tazobact 4.5 gm In Sodium Chloride 0.9% 100 ml @ 100 mls/hr IV Q8HR [facility] Rx #:[id number] Sodium Chloride 0.9% 1, 1000 000 ml @ 80 mls/hr IV . [id number] [facility] Rx#:[id number] Vancomycin HCl 1 gm In 250 Sodium Chloride 0.9% 250 ml @ 165 mls/hr IV Q8H [facility] Rx#:[id number] Vancomycin HCl 1 gm In 250 250 Sodium Chloride 0.9% 250 ml @ 165 mls/hr IV Q8H [facility] Rx#:[id number] Tube Feeding 480 480 Other 300 200 Other: # Voids 4 4 # Bowel Movements 2 2 Stool Characteristics Soft Soft Weight Source Bedscale Bedscale Active Medications: Current Medications Acetaminophen (Tylenol) 650 mg PO Q4H PRN PRN Reason: Pain Or Fever above 101 Stop: 10/13/18 23:07 Last Admin: 08/15/18 20:42 Dose: 650 mg Acetaminophen/Hydrocodone Bitart ([place] 5mg/325mg) 1 tab GT Q4H PRN PRN Reason: mild pain Stop: 10/15/18 16:00 Last Admin: 08/21/18 03:21 Dose: 1 tab Acetaminophen/Hydrocodone Bitart ([place] 10 Mg/325 Mg) 1 tab GT Q4H PRN PRN Reason: mod-severe pain Stop: 10/15/18 16:01 Albuterol Sulfate (Albuterol 2.5mg/3ml Neb Ud) 2.5 mg HHN Q2HRT PRN PRN Reason: Shortness of Breath or Wheeze Stop: 10/13/18 23:10 Docusate Sodium (Colace) 100 mg GT BID [facility] Stop: 10/14/18 08:59 Last Admin: 08/21/18 08:34 Dose: 100 mg Famotidine (Pepcid) 20 mg GT DAILY [facility] Stop: 10/14/18 08:59 Last Admin: 08/21/18 08:34 Dose: 20 mg Sodium Chloride (Nacl 0.9%) 1,000 mls @ 80 mls/hr IV .[id number] [facility] Stop: 10/13/18 23:14 Last Admin: 08/20/18 13:50 Dose: 80 mls/hr Piperacillin Sod/Tazobactam (Sod 4.5 gm/ Sodium Chloride) 100 mls @ 100 mls/hr IV Q8HR [facility] Stop: 10/14/18 04:59 Last Admin: 08/21/18 05:37 Dose: 100 mls/hr Vancomycin HCl 1 gm/ Sodium (Chloride) 250 mls @ 165 mls/hr IV Q8H [facility] Stop: 10/18/18 20:59 Last Admin: 08/20/18 15:01 Dose: Not Given Vancomycin HCl 1 gm/ Sodium (Chloride) 250 mls @ 165 mls/hr IV Q8H [facility] Stop: 10/19/18 13:59 Last Admin: 08/21/18 05:58 Dose: 165 mls/hr Ipratropium [place] (Atrovent Neb 0.5mg/2.5ml) 0.5 mg HHN Q2HRT PRN PRN Reason: Shortness of Breath or Wheeze Stop: 10/13/18 23:10 Lactobacillus Rhamnosus (Culturelle 15b) 1 each PO DAILY [facility] Stop: 10/16/18 08:59 Last Admin: 08/21/18 08:34 Dose: 1 each Levetiracetam (Keppra) 500 mg PO BID [facility] Stop: 10/14/18 08:59 Last Admin: 08/21/18 08:34 Dose: 500 mg Lorazepam (Ativan) 1 mg IV Q4H PRN; Protocol PRN Reason: Seizure Stop: 10/13/18 23:10 Magnesium Hydroxide (Milk Of Magnesia) 30 ml GT HS PRN PRN Reason: Constipation Stop: 10/13/18 23:07 Midodrine (Proamatine) 5 mg PO TID [facility] Stop: 10/14/18 13:59 Last Admin: 08/21/18 08:34 Dose: 5 mg Miscellaneous (Dextrose 10% [Dextrose 10%]) 250 ml IV PRN PRN PRN Reason: IF GLUCAGON INEFFECTIVE Miscellaneous (Vancomycin Iv Per Pharmacy) 1 ea MC PRN [facility] Stop: 10/13/18 23:14 Miscellaneous (Probiotic Screen) 1 ea MC PRN PRN PRN Reason: PROTOCOL Stop: 10/15/18 15:03 Nitroglycerin (Nitrostat) 0.4 mg SL Q5MIN PRN PRN Reason: CHEST PAIN X3 Stop: 10/13/18 23:07 Ondansetron HCl (Zofran) 4 mg IV Q8H PRN PRN Reason: Nausea / Vomiting Stop: 10/13/18 23:10 Wound Care/Dressing Products (Silvasorb) 1 appl TP DAILY [facility] Stop: 10/16/18 08:59 Last Admin: 08/20/18 09:23 Dose: Not Given General: No acute distress Cardiovascular: Regular rate Abdomen: Bowel sounds, Soft, Other (intact GT without leak), no Tender - Procedures Procedures: Procedures Procedure Code Date CHANGE FEEDING DEVICE IN UP INTEST TRACT, SALES MGR APPROACH [id number] 05/30/17 DRAINAGE OF RIGHT HIP JOINT, OPEN APPROACH [id number] 08/14/18 Assessment/Plan - Assessment Assessment: IMPRESSION: 1. Dysphagia s/p GT replacement. 2. Encephalopathy. RECS: 1. Continue GT feeds. 2. Water flushes. 3. GT care. GI encinas stable.
[2018-08-21] MEDS: Silver Antimicrobial Wound Gel 0.25 oz Tube TP SCH (09:12)
[2018-08-21] MEDS: Sodium Chloride 0.9% 1,000 ML IV SCH (11:07)
[2018-08-21] MEDS ORDERED: Sodium Chloride 0.9% 1,000 ML IV SCH (13:00)
[2018-08-22 05:09] LABS: EOSINOPHILE ABSOLUTE 0.2 Th/cmm (0.1-0.4); HEMOGLOBIN 14.6 gm/dL (12-16); LYMPHOCYTE ABSOLUTE 1.6 Th/cmm (1.5-3.0); MEAN CORPUSCULAR HEMOGLOBIN 30.7 pg (26.0-30.0); MONOCYTE ABSOLUTE 0.6 Th/cmm (0.3-1.0); RED BLOOD COUNT 4.75 Mil/cmm (4.30-5.70)
[2018-08-22 05:30] LABS: ALB/GLOB RATIO 1.1 (1.0-1.8); ALBUMIN 3.7 gm/dL (4.2-5.5); ALKALINE PHOSPHATASE 92 U/L (34-104); BILIRUBIN,TOTAL 0.3 mg/dL (0.3-1.0); BUN - UREA NITROGEN 10 mg/dL (7-25); CALCIUM SERUM 9.3 mg/dL (8.6-10.3); CARBON DIOXIDE 28.9 mEq/L (21.0-31.0); CHLORIDE 106 mEq/L (98-107); CREATININE - SERUM 0.5 mg/dL (0.7-1.3); GFR AFRICAN-AMERICAN > 60.0 ml/min (>90); GFR NON AFRICAN-AMERICAN > 60.0 ml/min; GLUCOSE 92 mg/dL (70-105); MAGNESIUM 2.5 mg/dL (1.9-2.7); POTASSIUM SERUM 3.9 mEq/L (3.5-5.1); SGOT 30 U/L (13-39); SGPT/ALT 42 U/L (7-52); SODIUM SERUM 141 mEq/L (136-145); TOTAL PROTEIN,SERUM 7.1 gm/dL (6.0-8.3)
[2018-08-22 05:55] LABS: % BASOPHILS 0.3 % (0.0-2.0); % EOSINOPHILS 3.6 % (0.0-5.0); % LYMPHOCYTES 23.8 % (20.0-50.0); % MONOCYTES 9.5 % (2.0-10.0); % NEUTROPHILS 62.8 % (40.0-80.0); HEMATOCRIT 43.8 % (41.0-60); MEAN CELL VOLUME 92.2 fl (80-99); MEAN CORPUSCULAR HGB CONC 33.3 pg (28.0-36.0); NEUTROPHILE ABSOLUTE 4.3 Th/cmm (1.8-8.0); PLATELET COUNT 250 Th/cmm (150-400); RED CELL DISTRIBUTION WIDTH 12.1 % (11.5-20.0); WHITE BLOOD COUNT 6.7 Th/cmm (4.8-10.8)
[2018-08-22] MEDS: Docusate Sodium 100 mg/10 mL UD GT SCH (08:05)
[2018-08-22] MEDS: Lactobacillus Rhamnosus GG 15 Billion CFU CAP.SPRINK PO SCH (08:05)
[2018-08-22] MEDS: Silver Antimicrobial Wound Gel 0.25 oz Tube TP SCH (08:09)
--- NOTE | 2018-08-22 09:20 | Diagnostic Imaging Report ---
CHEST X-RAY: AP view INDICATION: PICC line insertion COMPARISON: Chest x-ray 08/14/2018 FINDINGS: Exam is limited due to poor inspiration. Right PICC line has been placed with tip in the cavoatrial junction. Low lung volumes are seen with increased initial lung markings. No effusions. Heart size is normal. IMPRESSION: Interval right PICC line placement with tip in the cavoatrial junction. Low lung volumes with increased interstitial lung markings. Faint interstitial infiltrates cannot be excluded. Please correlate clinically. Exam was limited due to poor inspiration. Recommend short-term follow-up with better inspiration.
--- NOTE | 2018-08-22 12:42 | Internal Medicine Prog Note ---
Internal Medicine Subjective - Subjective Patient seen and examined:: with staff, chart reviewed Patient is:: asleep, non-verbal, non-interactive, eyes closed, agitated, congested Patient Complaints of:: congestion Per staff patient has:: no adverse event, no episodes of fall, tolerating meds Internal Medicine Objective - Results Result Diagrams: 08/22/18 04:33 08/22/18 04:33 Recent Labs: Laboratory Last Values WBC 6.7 Th/cmm (4.8-10.8) 08/22/18 04:33 RBC 4.75 Mil/cmm (4.30-5.70) 08/22/18 04:33 Hgb 14.6 gm/dL (12-16) 08/22/18 04:33 Hct 43.8 % (41.0-60) 08/22/18 04:33 MCV 92.2 fl (80-99) 08/22/18 04:33 MCH 30.7 pg (26.0-30.0) H 08/22/18 04:33 MCHC Differential 33.3 pg (28.0-36.0) 08/22/18 04:33 RDW 12.1 % (11.5-20.0) 08/22/18 04:33 Plt Count 250 Th/cmm (150-400) 08/22/18 04:33 MPV 9.7 fl 08/22/18 04:33 Add Manual Diff YES 08/14/18 20:00 Neutrophils % 62.8 % (40.0-80.0) 08/22/18 04:33 Band Neutrophils % 4 % (0-10) 08/14/18 20:00 Lymphocytes % 23.8 % (20.0-50.0) 08/22/18 04:33 Monocytes % 9.5 % (2.0-10.0) 08/22/18 04:33 Eosinophils % 3.6 % (0.0-5.0) 08/22/18 04:33 Basophils % 0.3 % (0.0-2.0) 08/22/18 04:33 Neutrophils (Manual) 79 % (40-80) 08/14/18 20:00 Lymphocytes 8 % (20-50) L 08/14/18 20:00 Monocytes 9 % (2-10) 08/14/18 20:00 Platelet Estimate DECREASED PLATELETS (NORMAL) 08/14/18 20:00 PT 10.3 SECONDS (9.5-11.5) 08/20/18 16:45 INR 0.99 (0.5-1.4) 08/20/18 16:45 Sodium 141 mEq/L (136-145) 08/22/18 04:33 Potassium 3.9 mEq/L (3.5-5.1) 08/22/18 04:33 Chloride 106 mEq/L (98-107) 08/22/18 04:33 Carbon Dioxide 28.9 mEq/L (21.0-31.0) 08/22/18 04:33 Anion Gap 10.0 (7.0-16.0) 08/22/18 04:33 BUN 10 mg/dL (7-25) 08/22/18 04:33 Creatinine 0.5 mg/dL (0.7-1.3) L 08/22/18 04:33 Est GFR ( Amer) > 60.0 ml/min (>90) 08/22/18 04:33 Est GFR (Non-Af Amer) > 60.0 ml/min 08/22/18 04:33 BUN/Creatinine Ratio 20.0 08/22/18 04:33 Glucose 92 mg/dL (70-105) 08/22/18 04:33 POC Glucose 96 MG/DL (70 - 105) 08/14/18 22:06 Whole Bld Lactic Acid 1.34 mmol/L (0.60-1.99) 08/14/18 20:00 Calcium 9.3 mg/dL (8.6-10.3) 08/22/18 04:33 Magnesium 2.5 mg/dL (1.9-2.7) 08/22/18 04:33 Total Bilirubin 0.3 mg/dL (0.3-1.0) 08/22/18 04:33 AST 30 U/L (13-39) 08/22/18 04:33 ALT 42 U/L (7-52) 08/22/18 04:33 Alkaline Phosphatase 92 U/L (34-104) 08/22/18 04:33 Ammonia 76 umol/L (16-53) H 08/22/18 04:33 Troponin I 0.02 ng/mL (0.01-0.05) 08/14/18 20:00 B-Natriuretic Peptide 79.5 pg/mL (5.0-100.0) 08/22/18 04:33 Total Protein 7.1 gm/dL (6.0-8.3) 08/22/18 04:33 Albumin 3.7 gm/dL (4.2-5.5) L 08/22/18 04:33 Globulin 3.4 gm/dL 08/22/18 04:33 Albumin/Globulin Ratio 1.1 (1.0-1.8) 08/22/18 04:33 TSH 1.42 uIU/ml (0.34-5.60) 08/16/18 05:06 Urine Source CLEAN C 08/14/18 17:40 Urine Color YELLOW 08/14/18 17:40 Urine Clarity CLEAR (CLEAR) 08/14/18 17:40 Urine pH 5.5 (4.6 - 8.0) 08/14/18 17:40 Ur Specific [place] 1.015 (1.005-1.030) 08/14/18 17:40 Urine Protein NEGATIVE mg/dL (NEGATIVE) 08/14/18 17:40 Urine Glucose (UA) NEGATIVE mg/dL (NEGATIVE) 08/14/18 17:40 Urine Ketones 40 mg/dL (NEGATIVE) H 08/14/18 17:40 Urine Blood NEGATIVE (NEGATIVE) 08/14/18 17:40 Urine Nitrate NEGATIVE (NEGATIVE) 08/14/18 17:40 Urine Bilirubin NEGATIVE (NEGATIVE) 08/14/18 17:40 Urine Urobilinogen 0.2 E.U./dL (0.2 - 1.0) 08/14/18 17:40 Ur Leukocyte Esterase NEGATIVE (NEGATIVE) 08/14/18 17:40 Urine RBC 0-2 /hpf (0-5) H 08/14/18 17:40 Urine WBC 0-2 /hpf (0-5) 08/14/18 17:40 Ur Epithelial Cells FEW /lpf (FEW) 08/14/18 17:40 Urine Bacteria FEW /hpf (NONE SEEN) 08/14/18 17:40 Urine Mucus FEW /lpf (FEW) 08/14/18 17:40 Vancomycin Trough 18.3 ug/mL (5-10) H 08/21/18 06:30 - Physical Exam Vitals and I&O: Vital Signs Temp 98.1 F 08/22/18 08:00 Pulse 68 08/22/18 10:00 Resp 18 08/22/18 10:00 BP 95/48 08/22/18 10:00 Pulse Ox 100 08/22/18 08:00 Intake & Output 08/21/18 08/22/18 08/22/18 18:59 06:59 18:59 Intake Total 1180 350 250 Balance 1180 350 250 Weight (lbs) 60.781 kg Intake: Intake, IV Amount 600 350 250 Piperacillin Sodium/ 100 100 Tazobact 4.5 gm In Sodium Chloride 0.9% 100 ml @ 100 mls/hr IV Q8HR [facility] Rx #:[id number] Vancomycin HCl 1 gm In 500 250 250 Sodium Chloride 0.9% 250 ml @ 165 mls/hr IV Q8H [facility] Rx#:[id number] Tube Feeding 480 Other 100 Other: # Voids 2 # Bowel Movements 1 Stool Characteristics Soft Soft Soft Weight Source Bedscale Active Medications: Current Medications Acetaminophen (Tylenol) 650 mg PO Q4H PRN PRN Reason: Pain Or Fever above 101 Stop: 10/13/18 23:07 Last Admin: 08/15/18 20:42 Dose: 650 mg Acetaminophen/Hydrocodone Bitart ([place] 5mg/325mg) 1 tab GT Q4H PRN PRN Reason: mild pain Stop: 10/15/18 16:00 Last Admin: 08/21/18 20:13 Dose: 1 tab Acetaminophen/Hydrocodone Bitart ([place] 10 Mg/325 Mg) 1 tab GT Q4H PRN PRN Reason: mod-severe pain Stop: 10/15/18 16:01 Albuterol Sulfate (Albuterol 2.5mg/3ml Neb Ud) 2.5 mg HHN Q2HRT PRN PRN Reason: Shortness of Breath or Wheeze Stop: 10/13/18 23:10 Docusate Sodium (Colace) 100 mg GT BID [facility] Stop: 10/14/18 08:59 Last Admin: 08/22/18 08:05 Dose: 100 mg Famotidine (Pepcid) 20 mg GT DAILY [facility] Stop: 10/14/18 08:59 Last Admin: 08/22/18 08:05 Dose: 20 mg Piperacillin Sod/Tazobactam (Sod 4.5 gm/ Sodium Chloride) 100 mls @ 100 mls/hr IV Q8HR [facility] Stop: 10/14/18 04:59 Last Admin: 08/22/18 04:28 Dose: 100 mls/hr Vancomycin HCl 1 gm/ Sodium (Chloride) 250 mls @ 165 mls/hr IV Q8H [facility] Stop: 10/19/18 13:59 Last Infusion: 08/22/18 08:00 Dose: Infused Ipratropium [place] (Atrovent Neb 0.5mg/2.5ml) 0.5 mg HHN Q2HRT PRN PRN Reason: Shortness of Breath or Wheeze Stop: 10/13/18 23:10 Lactobacillus Rhamnosus (Culturelle 15b) 1 each PO DAILY [facility] Stop: 10/16/18 08:59 Last Admin: 08/22/18 08:05 Dose: 1 each Levetiracetam (Keppra) 500 mg PO BID [facility] Stop: 10/14/18 08:59 Last Admin: 08/22/18 08:09 Dose: 500 mg Magnesium Hydroxide (Milk Of Magnesia) 30 ml GT HS PRN PRN Reason: Constipation Stop: 10/13/18 23:07 Midodrine (Proamatine) 5 mg PO TID [facility] Stop: 10/14/18 13:59 Last Admin: 08/22/18 08:05 Dose: 5 mg Miscellaneous (Dextrose 10% [Dextrose 10%]) 250 ml IV PRN PRN PRN Reason: IF GLUCAGON INEFFECTIVE Miscellaneous (Probiotic Screen) 1 ea PRN PRN PRN Reason: PROTOCOL Stop: 10/15/18 15:03 Nitroglycerin (Nitrostat) 0.4 mg SL Q5MIN PRN PRN Reason: CHEST PAIN X3 Stop: 10/13/18 23:07 Ondansetron HCl (Zofran) 4 mg IV Q8H PRN PRN Reason: Nausea / Vomiting Stop: 10/13/18 23:10 Wound Care/Dressing Products (Silvasorb) 1 appl TP DAILY [facility] Stop: 10/16/18 08:59 Last Admin: 08/22/18 08:09 Dose: 1 appl General: congested, demented, vegetative state, bilateral temporal wasting, appears older HEENT: NC/AT, PERRLA Neck: Supple Lungs: congested, rales Cardiovascular: RRR, Normal S1, Normal S2 Abdomen: soft, thin, +GT, positive bowel sound Extremities: contracture, ulcers stage 2 Neurological: lethargic - Procedures Procedures: Procedures Procedure Code Date CHANGE FEEDING DEVICE IN UP INTEST TRACT, REVENUE CYCLE ADMINISTRATOR APPROACH [id number] 05/30/17 DRAINAGE OF RIGHT HIP JOINT, OPEN APPROACH [id number] 08/14/18 Internal Medicine Assmt/Plan - Assessment Assessment: ASSESSMENT AND PLAN: Fever, sepsis, hypotension, right hip abscess, leukocytosis, diabetes, status post G-tube, hypertension, hypercholesterolemia, cerebral palsy, hyponatremia, seizure pulled gt - Plan Plan: PLAN: continue the patient on IV antibiotic on vancomycin and Zosyn. We will follow the patient's culture, including blood culture and wound culture. We will advance his drain. Continue IV hydration, will refer to sx gi consult noted cont on iv abx until 09/19/18 Nutritional Asmnt/Malnutr-PDOC - Dietary Evaluation Malnutrition Findings (Please click <Entered> for more info): Nutritional Asmnt/Malnutrition Start: 08/15/18 13: 57 Text: Status: Active Freq: Protocol: Document 08/15/18 13:58 GREG (Rec: 08/15/18 14:02 GREG [id number]) Nutritional Asmnt/Malnutrition Patient General Information Nutritional Screening High Risk Diagnosis SEPSIS, RT HIP ABCESS Pertinent Medical Hx/Surgical Hx QUADRAPLEGIC, CP INFARCT SEIZURES Subjective Information HIGH RISK, CONSULT: ABENA Melgar PT IS A 33 YEAR OLD MALE ADMITTED ON 08/14 C/O RT HIP ABCESS. PT IS QUADRAPLEGIC. PT HAS POSITIVE SCREEN FOR SEVERE SEPSIS OR SEPTIC SHOCK. HT: 57 WT: 134 LB (60.91KG) BMI: 20.99 (NORMAL) GI: WNL, SOFT, LARGE BM: NOT NOTED I/O: 200/3 (+197) SKIN: PALE, WARM, MOIST, ELASTIC WOUNDS: RT HIP INFECTED ABCESS ABENA: 11 DIET ORDER: NUTREN 2.0 4 CARTONS Q4HRS(5IN-1BT-7KA-9PM) ESTIMATED ENERGY NEEDS: ( QUADRIPLEGIA, SEPSIS, CBW) 2389-0195 KCALS (30-35 KCALS/ KG) 67-80 G PRO (1.2-2.0 G/KG) 8681-0896 ML (3-40 ML/KG) CONSIDER THE FOLLOWING: TWOCAL HN @40ML/HR X 24HRS THIS WILL PROVIDE 1920 KCALS, 80G PRO, AND 672ML FREE WATER TO MEET AN ESTIMATED 100% KCAL AND 100% PRO NEEDS TO PROMOTE WOUND HEALING. Current Diet Order/ Nutrition Support NUTREN 2.0 4 CARTONS Q4HRS(9AM -1PM-5PM-9PM) Pertinent Medications ALBUTEROL (PRN), COLACE, PEPCID, MOM (PRN), NITROSTAT, ZOFRAN (PRN), NACL 0.9% 1000ML @80ML/HR IV Q12H 30M [facility] Pertinent Labs 08/14: WBC 16.3, NA 131, CR 0.6, GLUC 120, ALT <3, ALB <1.5 Nutritional Hx/Data Height 1.7 m Height (Calculated Centimeters) 170.2 Current Weight (lbs) 60.781 kg Weight (Calculated Kilograms) 60.8 Weight (Calculated Grams) 91960.4 Echo Body Weight 133 % Echo Body Weight 101 Body Mass Index (BMI) 20.9 Weight Status Approriate GI Symptoms Last BM NOT NOTED Usual diet at home NUTREN 2.0 4 CARTONS Q4HRS(9AM -1PM-5PM-9PM) Skin Integrity/Comment: RT HIP INFECTED ABCESS Estimated Nutritional Goals BEE in Kcals: Using Current wt Calories/Kcals/Kg 30-35 Kcals Calculated 0694-3776 Protein: Using Current wt Protein g/k.2-2.0 Protein Calculated 67-80 Fluid: ml 0939-2218 ML (3-40 ML/KG) Nutritional Problem 1. Problem Problem INCREASED KCAL AND PROTEIN NEEDS Etiology R/T INCREASED METABOLISM Signs/Symptoms: AEB SEPSIS AND RT HIP ABCESS Malnutrition Related to Morbid Obesity Malnutrition related to morbid obesity No Intervention/Recommendation Comments CONSIDER TF: TWOCAL HN @40ML/HR X 24HRS THIS WILL PROVIDE 1920 KCALS, 80G PRO, AND 672ML FREE WATER TO MEET AN ESTIMATED 100% KCAL AND 100% PRO NEEDS TO PROMOTE WOUND HEALING. Expected Outcomes/Goals Expected Outcomes/Goals 1. MONITOR ENTERAL FORMULA TOLERANCE. 2. MONITOR WT, NUTRITION RELATED LABS AND SKIN INTEGRITY. 3. F/U HIGH RISK IN 2-3 DAYS, 08/17-08/18
--- NOTE | 2018-08-22 15:00 | GI Progress Note ---
Subjective - Review of Systems Service Date: 08/22/18 Events since last encounter: no new events, tolerating tube feedings GI OBJECTIVE - Results Result Diagrams: 08/22/18 04:33 08/22/18 04:33 Recent Labs: Laboratory Last Values WBC 6.7 Th/cmm (4.8-10.8) 08/22/18 04:33 RBC 4.75 Mil/cmm (4.30-5.70) 08/22/18 04:33 Hgb 14.6 gm/dL (12-16) 08/22/18 04:33 Hct 43.8 % (41.0-60) 08/22/18 04:33 MCV 92.2 fl (80-99) 08/22/18 04:33 MCH 30.7 pg (26.0-30.0) H 08/22/18 04:33 MCHC Differential 33.3 pg (28.0-36.0) 08/22/18 04:33 RDW 12.1 % (11.5-20.0) 08/22/18 04:33 Plt Count 250 Th/cmm (150-400) 08/22/18 04:33 MPV 9.7 fl 08/22/18 04:33 Add Manual Diff YES 08/14/18 20:00 Neutrophils % 62.8 % (40.0-80.0) 08/22/18 04:33 Band Neutrophils % 4 % (0-10) 08/14/18 20:00 Lymphocytes % 23.8 % (20.0-50.0) 08/22/18 04:33 Monocytes % 9.5 % (2.0-10.0) 08/22/18 04:33 Eosinophils % 3.6 % (0.0-5.0) 08/22/18 04:33 Basophils % 0.3 % (0.0-2.0) 08/22/18 04:33 Neutrophils (Manual) 79 % (40-80) 08/14/18 20:00 Lymphocytes 8 % (20-50) L 08/14/18 20:00 Monocytes 9 % (2-10) 08/14/18 20:00 Platelet Estimate DECREASED PLATELETS (NORMAL) 08/14/18 20:00 PT 10.3 SECONDS (9.5-11.5) 08/20/18 16:45 INR 0.99 (0.5-1.4) 08/20/18 16:45 Sodium 141 mEq/L (136-145) 08/22/18 04:33 Potassium 3.9 mEq/L (3.5-5.1) 08/22/18 04:33 Chloride 106 mEq/L (98-107) 08/22/18 04:33 Carbon Dioxide 28.9 mEq/L (21.0-31.0) 08/22/18 04:33 Anion Gap 10.0 (7.0-16.0) 08/22/18 04:33 BUN 10 mg/dL (7-25) 08/22/18 04:33 Creatinine 0.5 mg/dL (0.7-1.3) L 08/22/18 04:33 Est GFR ( Amer) > 60.0 ml/min (>90) 08/22/18 04:33 Est GFR (Non-Af Amer) > 60.0 ml/min 08/22/18 04:33 BUN/Creatinine Ratio 20.0 08/22/18 04:33 Glucose 92 mg/dL (70-105) 08/22/18 04:33 POC Glucose 96 MG/DL (70 - 105) 08/14/18 22:06 Whole Bld Lactic Acid 1.34 mmol/L (0.60-1.99) 08/14/18 20:00 Calcium 9.3 mg/dL (8.6-10.3) 08/22/18 04:33 Magnesium 2.5 mg/dL (1.9-2.7) 08/22/18 04:33 Total Bilirubin 0.3 mg/dL (0.3-1.0) 08/22/18 04:33 AST 30 U/L (13-39) 08/22/18 04:33 ALT 42 U/L (7-52) 08/22/18 04:33 Alkaline Phosphatase 92 U/L (34-104) 08/22/18 04:33 Ammonia 76 umol/L (16-53) H 08/22/18 04:33 Troponin I 0.02 ng/mL (0.01-0.05) 08/14/18 20:00 B-Natriuretic Peptide 79.5 pg/mL (5.0-100.0) 08/22/18 04:33 Total Protein 7.1 gm/dL (6.0-8.3) 08/22/18 04:33 Albumin 3.7 gm/dL (4.2-5.5) L 08/22/18 04:33 Globulin 3.4 gm/dL 08/22/18 04:33 Albumin/Globulin Ratio 1.1 (1.0-1.8) 08/22/18 04:33 TSH 1.42 uIU/ml (0.34-5.60) 08/16/18 05:06 Urine Source CLEAN C 08/14/18 17:40 Urine Color YELLOW 08/14/18 17:40 Urine Clarity CLEAR (CLEAR) 08/14/18 17:40 Urine pH 5.5 (4.6 - 8.0) 08/14/18 17:40 Ur Specific [place] 1.015 (1.005-1.030) 08/14/18 17:40 Urine Protein NEGATIVE mg/dL (NEGATIVE) 08/14/18 17:40 Urine Glucose (UA) NEGATIVE mg/dL (NEGATIVE) 08/14/18 17:40 Urine Ketones 40 mg/dL (NEGATIVE) H 08/14/18 17:40 Urine Blood NEGATIVE (NEGATIVE) 08/14/18 17:40 Urine Nitrate NEGATIVE (NEGATIVE) 08/14/18 17:40 Urine Bilirubin NEGATIVE (NEGATIVE) 08/14/18 17:40 Urine Urobilinogen 0.2 E.U./dL (0.2 - 1.0) 08/14/18 17:40 Ur Leukocyte Esterase NEGATIVE (NEGATIVE) 08/14/18 17:40 Urine RBC 0-2 /hpf (0-5) H 08/14/18 17:40 Urine WBC 0-2 /hpf (0-5) 08/14/18 17:40 Ur Epithelial Cells FEW /lpf (FEW) 08/14/18 17:40 Urine Bacteria FEW /hpf (NONE SEEN) 08/14/18 17:40 Urine Mucus FEW /lpf (FEW) 08/14/18 17:40 Vancomycin Trough 18.3 ug/mL (5-10) H 08/21/18 06:30 - Physical Exam Vitals and I&O: Vital Signs Temp 98.1 F 08/22/18 12:00 Pulse 56 08/22/18 12:00 Resp 18 08/22/18 14:00 BP 97/61 08/22/18 12:00 Pulse Ox 98 08/22/18 12:00 Intake & Output 08/21/18 08/22/18 08/22/18 18:59 06:59 18:59 Intake Total 1180 450 250 Balance 1180 450 250 Weight (lbs) 60.781 kg Intake: Intake, IV Amount 600 450 250 Piperacillin Sodium/ 100 200 Tazobact 4.5 gm In Sodium Chloride 0.9% 100 ml @ 100 mls/hr IV Q8HR [facility] Rx #:[id number] Vancomycin HCl 1 gm In 500 250 250 Sodium Chloride 0.9% 250 ml @ 165 mls/hr IV Q8H [facility] Rx#:[id number] Tube Feeding 480 Other 100 Other: # Voids 2 # Bowel Movements 1 Stool Characteristics Soft Soft Soft Weight Source Bedscale Active Medications: Current Medications Acetaminophen (Tylenol) 650 mg PO Q4H PRN PRN Reason: Pain Or Fever above 101 Stop: 10/13/18 23:07 Last Admin: 08/15/18 20:42 Dose: 650 mg Acetaminophen/Hydrocodone Bitart ([place] 5mg/325mg) 1 tab GT Q4H PRN PRN Reason: mild pain Stop: 10/15/18 16:00 Last Admin: 08/21/18 20:13 Dose: 1 tab Acetaminophen/Hydrocodone Bitart ([place] 10 Mg/325 Mg) 1 tab GT Q4H PRN PRN Reason: mod-severe pain Stop: 10/15/18 16:01 Albuterol Sulfate (Albuterol 2.5mg/3ml Neb Ud) 2.5 mg HHN Q2HRT PRN PRN Reason: Shortness of Breath or Wheeze Stop: 10/13/18 23:10 Docusate Sodium (Colace) 100 mg GT BID [facility] Stop: 10/14/18 08:59 Last Admin: 08/22/18 08:05 Dose: 100 mg Famotidine (Pepcid) 20 mg GT DAILY [facility] Stop: 10/14/18 08:59 Last Admin: 08/22/18 08:05 Dose: 20 mg Piperacillin Sod/Tazobactam (Sod 4.5 gm/ Sodium Chloride) 100 mls @ 100 mls/hr IV Q8HR [facility] Stop: 10/14/18 04:59 Last Admin: 08/22/18 13:28 Dose: 100 mls/hr Vancomycin HCl 1 gm/ Sodium (Chloride) 250 mls @ 165 mls/hr IV Q8H [facility] Stop: 10/19/18 13:59 Last Admin: 08/22/18 14:19 Dose: 165 mls/hr Ipratropium [place] (Atrovent Neb 0.5mg/2.5ml) 0.5 mg HHN Q2HRT PRN PRN Reason: Shortness of Breath or Wheeze Stop: 10/13/18 23:10 Lactobacillus Rhamnosus (Culturelle 15b) 1 each PO DAILY [facility] Stop: 10/16/18 08:59 Last Admin: 08/22/18 08:05 Dose: 1 each Levetiracetam (Keppra) 500 mg PO BID [facility] Stop: 10/14/18 08:59 Last Admin: 08/22/18 08:09 Dose: 500 mg Magnesium Hydroxide (Milk Of Magnesia) 30 ml GT HS PRN PRN Reason: Constipation Stop: 10/13/18 23:07 Midodrine (Proamatine) 5 mg PO TID [facility] Stop: 10/14/18 13:59 Last Admin: 08/22/18 14:19 Dose: 5 mg Miscellaneous (Dextrose 10% [Dextrose 10%]) 250 ml IV PRN PRN PRN Reason: IF GLUCAGON INEFFECTIVE Miscellaneous (Probiotic Screen) 1 ea [facility] PRN PRN PRN Reason: PROTOCOL Stop: 10/15/18 15:03 Nitroglycerin (Nitrostat) 0.4 mg SL Q5MIN PRN PRN Reason: CHEST PAIN X3 Stop: 10/13/18 23:07 Ondansetron HCl (Zofran) 4 mg IV Q8H PRN PRN Reason: Nausea / Vomiting Stop: 10/13/18 23:10 Wound Care/Dressing Products (Silvasorb) 1 appl TP DAILY [facility] Stop: 10/16/18 08:59 Last Admin: 08/22/18 08:09 Dose: 1 appl General: Oriented x3, Mild distress HEENT: Atraumatic, EOMI Neck: Supple Cardiovascular: Regular rate, Normal S1, Normal S2 Lungs: Clear to auscultation - Procedures Procedures: Procedures Procedure Code Date CHANGE FEEDING DEVICE IN UP INTEST TRACT, SENIOR INFORMATION SECURITY ANALYST APPROACH [id number] 04/18/18 DRAINAGE OF RIGHT HIP JOINT, OPEN APPROACH [id number] 08/14/18 Assessment/Plan - Assessment Assessment: IMPRESSION: 1. Dysphagia s/p GT replacement. 2. Encephalopathy. RECS: 1. Continue GT feeds. 2. Water flushes. 3. GT care. GI encinas stable.
--- NOTE | 2018-08-23 16:18 | Discharge Summary ---
DATE OF DISCHARGE: 08/22/2018 INTERNAL MEDICINE DISCHARGE SUMMARY CHIEF COMPLAINT: Fever, infected right hip. FINAL DIAGNOSES: 1. Right hip abscess status incision and drainage. 2. Leukocytosis. 3. Fever. 4. Sepsis. 5. Diabetes. 6. Has G-tube. 7. Hypertension. 8. Hypercholesterolemia. 9. History of hyponatremia. 10. Seizure. 11. Generalized debility. 12. Culture positive for methicillin-resistant Staphylococcus aureus. HISTORY: This is a 33-year-old male with multiple medical problems with chronic respiratory failure, previous history of diabetes, history of seizure, brought him to nursing facility with a right hip abscess and admitted for further management. PHYSICAL EXAMINATION: VITAL SIGNS: Blood pressure 106/56, respiration 18, pulse 55, and temperature 97.9. GENERAL: Elderly male, appears stated age. NECK: Supple. No mass. LUNGS: Equal breath sounds, few rhonchi. HEART: Regular rate and rhythm. ABDOMEN: Soft, ____. EXTREMITIES: Positive excoriation. NEUROLOGIC: Limited. HOSPITAL COURSE: The patient was admitted to telemetry. Continue oxygen, bronchodilator treatments, IV hydration, and IV antibiotic. The patient was referred to Dr. Castanon for surgery. Initial lab, white count was 16,000. The patient had I and D, also referred to Dr. Rex Almeida for Infectious Diseases. Continue IV vancomycin and Zosyn. The patient cleared for discharge. Continue with antibiotic for one month and Levaquin through G-tube continue with current care. CONDITION ON DISCHARGE: Fair. OVERALL PROGNOSIS: Poor. DISCHARGE INSTRUCTIONS: The patient to continue on IV vancomycin until 09/19/2018 and Levaquin through the G-tube. Continue wound care. The patient to follow up with his primary care doctor. JOB# [id number]
== END 2018-08-22 17:30 | DRG 710 ==
LOC: ER 19:32 → TELE 22:34
PROVIDERS: ADMIT Internal Medicine; ATTEND Internal Medicine
PROC: 0S990ZZ Drainage of Right Hip Joint, Open Approach (ICD-10-PCS; principal; 2018-08-16)
PROC: 0D20XUZ Change Feeding Device in Upper Intestinal Tract, External Approach (ICD-10-PCS; 2018-08-19)
DX: A41.9 Sepsis, unspecified organism (principal); E43 Unspecified severe protein-calorie malnutrition; G93.40 Encephalopathy, unspecified; J96.10 Chronic respiratory failure, unspecified whether with hypoxia or hypercapnia; R53.2 Functional quadriplegia; Z93.0 Tracheostomy status; E87.1 Hypo-osmolality and hyponatremia; L02.415 Cutaneous abscess of right lower limb; Z93.1 Gastrostomy status; E11.9 Type 2 diabetes mellitus without complications; G80.9 Cerebral palsy, unspecified; J98.11 Atelectasis; M85.88 Other specified disorders of bone density and structure, other site; L03.115 Cellulitis of right lower limb; E78.00 Pure hypercholesterolemia, unspecified; B95.62 Methicillin resistant Staphylococcus aureus infection as the cause of diseases classified elsewhere; B95.4 Other streptococcus as the cause of diseases classified elsewhere; B96.1 Klebsiella pneumoniae [K. pneumoniae] as the cause of diseases classified elsewhere; G40.909 Epilepsy, unspecified, not intractable, without status epilepticus; R13.10 Dysphagia, unspecified; Z79.4 Long term (current) use of insulin; Z68.21 Body mass index [BMI] 21.0-21.9, adult
CPT/HCPCS: 36415-UA; 71045-TC; 72170-TC; 78315-TC; 80048-TC; 80053-TC; 80202-TC; 81001-TC; 82140-TC; 82565-TC; 82948-90; 83605; 83735-TC; 83880-TC; 84443-TC; 84484-TC; 84520-TC; 85007-TC; 85025-TC; 85610-TC; 87070-90; 93005; 94760; A9503; J0696; J2001; J2543; J3370; J7030; P9046; Z7610